=== PATIENT | male | born 1960 | race Caucasian/White ===

== ENCOUNTER 2018-03-03 18:30 | Emergency (ER) | payer MEDICAID ==
[~2018-03-03] VITALS: Ht 177.8 cm; Wt 85.7 kg
[2018-03-03 19:01] LABS: BASOPHILS % (AUTO) 0.4 % (0.0-2.0); EOSINOPHILS % (AUTO) 0.9 % (0.0-6.0); HEMATOCRIT 45 % (39-51); HEMOGLOBIN 15.3 g/dL (13.5-17.5); LYMPHOCYTES # (AUTO) 1.5 /CMM (0.8-4.8); LYMPHOCYTES % (AUTO) 19.2 % (20.0-44.0); MEAN CORPUSCULAR HEMOGLOBIN 32 PG (26.0-33.0); MEAN CORPUSCULAR HGB CONC 34 g/dl (31.0-36.0); MEAN CORPUSCULAR VOLUME 93 fL (80-96); MONOCYTES # (AUTO) 0.5 /CMM (0.1-1.30); MONOCYTES % (AUTO) 6.7 % (2.0-12.0); NEUTROPHILS # (AUTO) 5.6 /CMM (1.8-8.9); NEUTROPHILS % (AUTO) 72.8 % (43.0-81.0); PLATELET COUNT (AUTO) 256 /CMM (150-450); RDW COEFFICIENT OF VARIATION 11.4 (11.5-15.0); RED BLOOD CELL COUNT(AUTO) 4.84 MIL/uL (4.5-6.0); WHITE BLOOD COUNT (AUTO) 7.7 K/uL (4.3-11.0)
[2018-03-03 19:11] LABS: CALCIUM, SERUM 9.4 mg/dL (8.5-10.1); CARBON DIOXIDE 30 mmol/L (21-32); CHLORIDE 103 mmol/L (98-107); CREATININE 1.1 mg/dL (0.6-1.3); GLUCOSE 100 mg/dL (74-106); SODIUM SERUM 135 mmol/L (136-145); UREA NITROGEN, BLOOD 17 mg/dL (7-18)
[2018-03-03 19:13] LABS: ALCOHOL, BLOOD < 3 mg/dL (0-0)
--- NOTE | 2018-03-03 19:15 | NUR ---
RECEIVED REPORT FROM SHAMAR KEYES FROM [facility]: PATIENT AGITATED, AGGRESSIVE TOWARDS SELF MORE ALTERED THAN USUAL. PT ALERT AND ORIENTED. RR EVEN AND UNLABORED. NO SOB NOTED. NAD NOTED. NO NVD AT THIS TIME. PT GOWNED AND PLACED ON MONITOR. SEEN BY DR. LAURA CONWAY TO SHIFT REPORT.
--- NOTE | 2018-03-03 19:19 | NUR ---
UNABLE OBTAIN UA AT THIS TIME.DR SANCHEZ AWARE. PER MD TO ENDORSE TO ADMITTING RN.
[2018-03-03] MEDS ORDERED: HALOPERIDOL LACTATE INJ 5 MG/ML VIAL ONE (19:20)
[2018-03-03] MEDS ORDERED: HALOPERIDOL LACTATE INJ 5 MG/ML VIAL IM ONE (19:30)
--- NOTE | 2018-03-03 19:35 | NUR ---
PT REMOVED CARDIAC 3 LEAD AND BP CUFF. RISK AND BENEFITS EXPLAINED X3. PT STRONGLY REFUSED. DR. SANCHEZ MADE AWARE.
--- NOTE | 2018-03-03 19:38 | NUR ---
CALLED [facility] FOR PSYCH EVAL
[2018-03-03 19:50] LABS: APPEARANCE,URINE Clear (CLEAR); BILIRUBIN,URINE SMALL (NEGATIVE); BLOOD, URINE Negative Ery/uL (NEGATIVE); COLOR,URINE Yellow (YELLOW); KETONES,URINE 15 (NEGATIVE); LEUKOCYTE ESTERASE ,URINE Negative (NEGATIVE); NITRITE, URINE Negative (NEGATIVE); PROTEIN,URINE Negative (NEGATIVE); UGLUCOSE Negative (NEGATIVE); UROBILINOGEN,URINE 0.2 EU/dL (0.2)
[2018-03-03 19:54] LABS: BACTERIA,URINE Rare /HPF (None Seen); RBC,URINE 0-2 /HPF (0-2); SQUAMOUS EPITHELIAL CELL,UR Rare /HPF (None Seen); WBC,URINE 0-2 /HPF (0-3)
--- NOTE | 2018-03-03 20:20 | NUR ---
[facility] AT BEDSIDE FOR EVAL
--- NOTE | 2018-03-03 20:53 | NUR ---
REQUESTED BLS TRANSPORTATION WITH [facility]
--- NOTE | 2018-03-03 21:50 | NUR ---
PT PICKED UP BY [facility]
[2018-03-03 22:02] VITALS: BP 133/95
== END 2018-03-03 22:03 ==
LOC: ER 18:32
DX: R45.1 Restlessness and agitation (principal); F29 Unspecified psychosis not due to a substance or known physiological condition; N40.0 Benign prostatic hyperplasia without lower urinary tract symptoms; Z98.890 Other specified postprocedural states
CPT/HCPCS: 36415; 80048; 80305; 81001; 85025; 87081; 96372; 99285; A4606; G0480; J1630; Z7610; 81000-TC

== ENCOUNTER 2021-10-16 18:23 | Inpatient (IN) | payer MEDICAID ==
[~2021-10-16] VITALS: Ht 180.3 cm; Wt 72.6 kg
--- NOTE | 2021-10-16 18:24 | NUR ---
TO ER BED 8, ZAYDA [address] [place] [address] C/O SOB/LOW O2 SAT 86% ON RA. STARTED AROUND 1700H PER EMS REPORT, NON VERBAL, CONNECTED TO MONITOR, AWAITING MD ORDERS
--- NOTE | 2021-10-16 18:43 | NUR ---
PATIENT ATTACHED TO BIPAP. VS LN499ddr, SPO2 87%,BP 57/38mmHg. IV CANNULA G18 INSERTED ON RIGHT AC. 1L 0.9NS BOLUS STARTED.
--- NOTE | 2021-10-16 18:44 | NUR ---
COVID SWAB DONE AND SENT TO LAB
--- NOTE | 2021-10-16 18:49 | NUR ---
VITAL SIGNS : HR 127bpm, SPO2 98%, BP 70/33mmHg. Etomidate 20mg given IV PUSH, Rocoronium 70mg IV PUSH given. Suction secretions done
--- NOTE | 2021-10-16 18:53 | NUR ---
INTUBATION DONE BY DR NOYOLA, WITH RT PA RN EVER, MEÑO BRADEN MARIVI.
--- NOTE | 2021-10-16 18:53 | NUR ---
ATTACHED PATIENT TO MECHANICAL VENTILATOR WITH TV 450, AC MODE, FiO2 80%.
--- NOTE | 2021-10-16 18:53 | NUR ---
RSI PERFORMED BY DR NOYOLA, SEE NURSE NOTES
[2021-10-16] MEDS ORDERED: PROPOFOL 100 ML IV PRN (19:00)
[2021-10-16] MEDS ORDERED: PIPERACILLIN /TAZOBACTAM 3.375 G in IV D5W 50 ML IV ONE (19:00)
[2021-10-16] MEDS ORDERED: IV LR 1000 ML 1,000 ML IV ONE ×2 (19:00→21:00)
[2021-10-16] MEDS ORDERED: IV NS 0.9% 1,000 ML IV ONE (19:00)
--- NOTE | 2021-10-16 19:06 | NUR ---
MEDICAL DETAILIST AT PT'S BEDSIDE
--- NOTE | 2021-10-16 19:15 | NUR ---
1899 pt intubated by er physician with 7.5 ett positioned at 27cm via glidascope. positive color change, mist in the tube, bilateral chest rise, bilateral breath sounds. pt sedated at this time and non responsive. ett secured via anchorfast. pt placed on vent ac 14 450 80% +0. suctioned a large amount of thick wagoner secretions through ett. Addendum: 10/16/21 at 1938 by ROVERTO DEAN RT Amended: Links added.
--- NOTE | 2021-10-16 19:18 | NUR ---
NURSE DANUTAV WILL CALL [facility], WILL LET ER KNOW
[2021-10-16 19:59] LABS: ALANINE AMINOTRANSFERASE 15 U/L (12-78); ALBUMIN 1.8 g/dL (3.4-5.0); ALKALINE PHOSPHATASE 125 U/L (46-116); ASPARTATE AMINOTRANSFERASE 19 U/L (15-37); BILIRUBIN,DIRECT 0.2 mg/dL (0.0-0.2); BILIRUBIN,TOTAL 0.5 mg/dL (0.2-1.0); CALCIUM, SERUM 7.6 mg/dL (8.5-10.1); CARBON DIOXIDE 24 mmol/L (21-32); CREATININE 1.6 mg/dL (0.6-1.3); GLUCOSE 155 mg/dL (74-106); POTASSIUM 3.2 mmol/L (3.5-5.1); TOTAL PROTEIN, SERUM 6.1 g/dL (6.4-8.2); UREA NITROGEN, BLOOD 46 mg/dL (7-18)
[2021-10-16] MEDS ORDERED: ROCURONIUM BROMIDE 50 MG/5 ML IV ONE (20:00)
[2021-10-16] MEDS ORDERED: ETOMIDATE 2 MG/ML VIAL IV ONE (20:00)
[2021-10-16 20:31] LABS: SODIUM SERUM 171 mmol/L (136-145)
[2021-10-16 20:32] LABS: CHLORIDE 133 mmol/L (98-107)
--- NOTE | 2021-10-16 20:32 | NUR ---
PT TAKEN TO CT VIA ACLS PROTOCOL & RT
[2021-10-16 20:33] LABS: BASOPHILS % (AUTO) 0.2 % (0.0-2.0); EOSINOPHILS % (AUTO) 0.1 % (0.0-6.0); HEMATOCRIT 43 % (39-51); HEMOGLOBIN 13.4 g/dL (13.5-17.5); LYMPHOCYTES % (AUTO) 11.3 % (20.0-44.0); MEAN CORPUSCULAR HGB CONC 31 g/dl (31.0-36.0); MEAN CORPUSCULAR VOLUME 100 fL (80-96); MONOCYTES # (AUTO) 0.5 K/uL (0.1-1.30); MONOCYTES % (AUTO) 5.1 % (2.0-12.0); NEUTROPHILS # (AUTO) 7.5 K/uL (1.8-8.9); NEUTROPHILS % (AUTO) 83.3 % (43.0-81.0); PLATELET COUNT (AUTO) 245 K/uL (150-450); RED BLOOD CELL COUNT(AUTO) 4.32 MIL/uL (4.5-6.0)
--- NOTE | 2021-10-16 20:47 | NUR ---
PT RETURNED TO ER BED [address] VSS
[2021-10-16] MEDS ORDERED: IOHEXOL-350 100 ML VIAL IV ONE (20:57)
[2021-10-16] MEDS ORDERED: CT SWABBABLE VALVE TRANS SET 1 EA INFUS.SET MC ONE (20:57)
[2021-10-16] MEDS ORDERED: IV NS 0.9% 250 ML IV ONE (20:58)
--- NOTE | 2021-10-16 21:05 | NUR ---
PT TAKEN TO CT VIA JASEN WITH RN AND RT
--- NOTE | 2021-10-16 21:18 | NUR ---
[facility]
[2021-10-16] MEDS ORDERED: PROPOFOL 100 ML ONE (21:44)
--- NOTE | 2021-10-16 21:47 | NUR ---
COVID SWAB DONE AND SENT TO LAB
--- NOTE | 2021-10-16 21:52 | NUR ---
18FR INDWELLING URETHRAL CATHETER INSERTED AND SECURED PER MD ORDER. SPECIMEN COLLECTED AND SENT TO LAB.
--- NOTE | 2021-10-16 22:09 | NUR ---
RT AT BEDSIDE FOR ABG
--- NOTE | 2021-10-16 22:09 | NUR ---
MRSA SWAB COLLECTED AND SENT TO LAB. PATIENT'S BELONGINGS LIST DONE.
--- NOTE | 2021-10-16 22:14 | NUR ---
VERBAL CONSENT RECIEVED FROM SISTER AMBER DIMAS VIA PHONE FOR PICC LINE INSERTION. WITNESSED OBEY TILLMAN AND ELIDA TILLMAN.
[2021-10-16] MEDS ORDERED: PHENYLEPHRINE 50 MG in IV NS 0.9% 250 ML IV PRN (22:30)
[2021-10-16] MEDS ORDERED: ENOXAPARIN SODIUM 40 MG/0.4 ML DISP.SYRIN SQ SCH (22:30)
[2021-10-16] MEDS ORDERED: CEFEPIME 1 GM in IV D5W 50 ML IV SCH (22:30)
[2021-10-16] MEDS ORDERED: IV NS 0.9% 1,000 ML IV PRN (22:30)
[2021-10-16 22:37] LABS: BILIRUBIN,URINE SMALL (NEGATIVE); COLOR,URINE YELLOW (YELLOW); LEUKOCYTE ESTERASE ,URINE NEGATIVE (NEGATIVE); NITRITE, URINE NEGATIVE (NEGATIVE); PROTEIN,URINE 30 mg/dl (NEGATIVE); UGLUCOSE NEGATIVE (NEGATIVE)
[2021-10-16 22:42] LABS: BACTERIA,URINE None seen /HPF (None Seen); SQUAMOUS EPITHELIAL CELL,UR None Seen /HPF (None Seen); WBC,URINE 0-2 /HPF (0-3)
--- NOTE | 2021-10-16 22:48 | NUR ---
ROOM 254
[2021-10-16] MEDS ORDERED: DOXYCYCLINE 100 MG in IV D5W 100 ML IV ONE (23:00)
[2021-10-16] MEDS: NOREPINEPHRINE 8 MG in IV NS 0.9% 242 ML IV PRN ×2 (23:00→23:21)
--- NOTE | 2021-10-16 23:09 | NUR ---
REPORT GIVEN TO ANGELICA
--- NOTE | 2021-10-16 23:20 | NUR ---
SBP NOTED BELOW 90. LEVOPHED INTIATED AT 18G RAC AT 0.1MCG/KG/MIN PER PROTOCOL FOR BP CONTROL.
--- NOTE | 2021-10-16 23:20 | NUR ---
Note magan in ED - 10/17/21 at 0009 by SANG SBP NOTED BELOW 90. LEVOPHED INTIATED AT 18G RAC AT 5MCG/KG/MIN PER PROTOCOL FOR BP CONTROL.
--- NOTE | 2021-10-16 23:25 | NUR ---
LEVOPHED TITRATED AT 18G RAC TO 0.2MCG/KG/MIN PER PROTOCOL FOR BP CONTROL.
[2021-10-16] MEDS ORDERED: VANCOMYCIN 1 GM VIAL ONE (23:26)
[2021-10-16] MEDS ORDERED: VANCOMYCIN 500 MG VIAL ONE (23:26)
[2021-10-16] MEDS ORDERED: DOXYCYCLINE 100 MG VIAL ONE (23:26)
[2021-10-16] MEDS ORDERED: VANCOMYCIN 1.25 GM in IV D5W 250 ML IV ONE (23:30)
--- NOTE | 2021-10-16 23:35 | NUR ---
LEVOPHED TITRATED AT 18G RAC TO 0.3MCG/KG/MIN PER PROTOCOL FOR BP CONTROL.
--- NOTE | 2021-10-16 23:40 | NUR ---
PROPOFOL INFUSION TITRATED FROM 5MCG/KG/MIN TO 15MCG/KG/MIN AT 20G RH FOR PATIENT COMFORT.
[2021-10-16] MEDS ORDERED: CEFEPIME 1 GM VIAL ONE (23:41)
--- NOTE | 2021-10-16 23:45 | NUR ---
PROPOFOL INFUSION TITRATED FROM 15MCG/KG/MIN TO 20MCG/KG/MIN AT 20G RH FOR PATIENT COMFORT.
--- NOTE | 2021-10-16 23:50 | NUR ---
PROPOFOL INFUSION TITRATED FROM 20MCG/KG/MIN TO 25MCG/KG/MIN AT 20G RH FOR PATIENT COMFORT.
[2021-10-17] VITALS (94 sets, daily range): BP systolic 71–112; BP diastolic 41–75
--- NOTE | 2021-10-17 00:50 | NUR ---
LEVOPHED TITRATED AT THOMAS PICC LINE TO 0.4MCG/KG/MIN PER PROTOCOL FOR BP CONTROL.
--- NOTE | 2021-10-17 00:59 | NUR ---
LEVOPHED TITRATED AT THOMAS PICC LINE TO 0.5MCG/KG/MIN PER PROTOCOL FOR BP CONTROL. PROPOFOL TITRATED TO 30MCG/KG/MIN FOR PT COMOFORT AT 20G RH.
--- NOTE | 2021-10-17 01:21 | NUR ---
PT TRANSPORTED TO ROOM 254 ON PROCESSING ENGINEER PER ACLS WITH RN AND RT MANUALLY BAGGING PATIENT. LEVOPHED INFUSING AT 0.5MCG/KG/MIN AT THOMAS PICC LINE, VANCOMYACIN INFUSING AT 18G [id number] , PROPOFOL INFUSING AT 30MCG/KG/MIN. V/S WNL AT TIME OF TRANSFER.
[2021-10-17] MEDS ORDERED: HEPARIN SODIUM, PORCINE 5000 UNITS/1 ML VIAL IV ONE (01:30)
[2021-10-17] MEDS: PHENYLEPHRINE 50 MG in IV NS 0.9% 245 ML IV PRN ×4 (01:30→21:44)
[2021-10-17] MEDS: PROPOFOL 100 ML IV PRN ×4 (01:36→23:45)
[2021-10-17] MEDS ORDERED: IV PREMIX D5W + KCL 1,000 ML IV ONE (01:43)
[2021-10-17] MEDS ORDERED: HEPARIN INFUSION/D5W 500 ML IV ONE (01:43)
[2021-10-17] MEDS: Potassium Chloride 20 MEQ in IV D5W 1,000 ML IV PRN ×3 (01:47→22:44)
[2021-10-17] MEDS: HEPARIN INFUSION/D5W 500 ML IV PRN ×2 (01:51→20:48)
[2021-10-17] MEDS: IV NS 0.9% 250 ML IV PRN (02:06)
[2021-10-17 04:01] LABS: CALCIUM, SERUM 7.4 mg/dL (8.5-10.1); CREATININE 1.2 mg/dL (0.6-1.3); POTASSIUM 2.9 mmol/L (3.5-5.1)
[2021-10-17] MEDS: POTASSIUM CL. PREMIX PERIPHER. 50 ML IV SCH ×4 (04:59→07:41)
[2021-10-17] MEDS ORDERED: TAMS-12 PO (08:24)
[2021-10-17] MEDS ORDERED: MELA3TAB41 PO (08:24)
[2021-10-17] MEDS ORDERED: SIME80TA15 PO (08:24)
[2021-10-17] MEDS ORDERED: NA P133E RC (08:24)
[2021-10-17] MEDS ORDERED: ASPI-1169 PO (08:24)
[2021-10-17] MEDS ORDERED: ACET-868 PO ×2 (08:24)
[2021-10-17] MEDS ORDERED: DIVA-76 PO (08:24)
[2021-10-17] MEDS ORDERED: LORA-259 PO (08:24)
[2021-10-17] MEDS ORDERED: MAGN400O6 PO (08:24)
[2021-10-17] MEDS ORDERED: QUET25TA PO (08:24)
[2021-10-17] MEDS ORDERED: LACT1CAP69 PO (08:24)
[2021-10-17] MEDS ORDERED: METH5TAB6 PO (08:24)
[2021-10-17] MEDS ORDERED: BISA10SU11 RC (08:24)
[2021-10-17] MEDS ORDERED: MIRT-73 PO (08:24)
[2021-10-17] MEDS ORDERED: POLY17PO4 PO (08:24)
--- NOTE | 2021-10-17 08:30 | NUR ---
RN NOTES PT FOUND SEMI FOWLERS LYING ON R SIDE, DISPLAYING NO S/S OF DISTRESS, FLACC = 0, MIKE'S = 3 AND BILATERAL RISE AND FALL OF THE CHEST OBSERVED. SOFT WRISTS ON STANDBY, NOT ON PATIENT. R UA PICC IS PATIENT AND INTACT. R AC 18G AND R HAND 20G ARE PATIENT AND INTACT. DOMINGO CATH BELOW PATIENT DRAINING BY GRAVITY. VSS, RN WILL MONITOR AND TREAT THROUGHOUT SHIFT. SAFETY MEASURES IN PLACE, BED LOCKED AND IN LOWEST POSITION, SIDE RAILS UPX2, CALL LIGHT WITHIN REACH, BED ALARM ARMED.
[2021-10-17] MEDS: CEFEPIME 2 GM in IV D5W 100 ML IV SCH ×2 (08:53→22:00)
[2021-10-17 09:11] LABS: BASOPHILS % (AUTO) 0.3 % (0.0-2.0); EOSINOPHILS % (AUTO) 0.1 % (0.0-6.0); HEMATOCRIT 29 % (39-51); HEMOGLOBIN 9.1 g/dL (13.5-17.5); LYMPHOCYTES # (AUTO) 2.5 K/uL (0.8-4.8); LYMPHOCYTES % (AUTO) 23.6 % (20.0-44.0); MEAN CORPUSCULAR HGB CONC 31 g/dl (31.0-36.0); MEAN CORPUSCULAR VOLUME 102 fL (80-96); MONOCYTES # (AUTO) 0.4 K/uL (0.1-1.30); NEUTROPHILS # (AUTO) 7.8 K/uL (1.8-8.9); PLATELET COUNT (AUTO) 221 K/uL (150-450); RED BLOOD CELL COUNT(AUTO) 2.85 MIL/uL (4.5-6.0); WHITE BLOOD COUNT (AUTO) 10.8 K/uL (4.3-11.0)
--- NOTE | 2021-10-17 12:00 | NUR ---
MD VISIT DR MCDONALD VISITED PATIENT, PERFORMED ASSESSMENT. MD GAVE ORDERS: INSERT OG TUBE, START TUBE FEEDING WHEN CONFIRMED IN PLACE AND PLACE PT ON MODERATE INSULIN SLIDING SCALE AND ACCU CHECKS Q6H. RN ACKNOWLEDGED AND WILL EXECUTE ORDERS DIRECTED.
--- NOTE | 2021-10-17 14:00 | NUR ---
MD COMMUNICATION RN INFORMED DR CHO OF PT CRITICAL LABS, NA = 160 AND CL = 130. MD GAVE ORDERS: 300 ML FREE WATER FLUSH Q4H VIA OG TUBE. RN ACKNOWLEDGED AND WILL EXECUTE ORDERED.
[2021-10-17 14:12] LABS: ALBUMIN 1.6 g/dL (3.4-5.0); BILIRUBIN,TOTAL 0.3 mg/dL (0.2-1.0); CALCIUM, SERUM 7.4 mg/dL (8.5-10.1); CREATININE 0.8 mg/dL (0.6-1.3); MAGNESIUM 2.3 mg/dL (1.8-2.4); PHOSPHORUS 1.9 mg/dL (2.5-4.9); POTASSIUM 3.2 mmol/L (3.5-5.1); TOTAL PROTEIN, SERUM 5.5 g/dL (6.4-8.2)
[2021-10-17] MEDS ORDERED: ROCURONIUM BROMIDE 50 MG/5 ML IV ONE (14:44)
[2021-10-17] MEDS ORDERED: ETOMIDATE 2 MG/ML VIAL IV ONE (14:44)
[2021-10-17] MEDS: DIVALPROEX SODIUM 250 MG TABLET.DR PO SCH (17:28)
[2021-10-17] MEDS: METHIMAZOLE (5MG) 5 MG TABLET PO SCH (17:28)
[2021-10-17] MEDS: TAMSULOSIN 0.4 MG CAP.SR.24H PO SCH (17:29)
--- NOTE | 2021-10-17 19:25 | NUR ---
RN NOTES PT FOUND SEMI FOWLERS DISPLAYING NO S/S OF DISTRESS, FLACC = 0, RIKERS = 3, BILATERAL RISE AND FALL OF THE CHEST OBSERVED. OG TUBE IN PLACE, FREE WATER FLUSHES ONGOING. R UA PICC IS PATIENT AND INTACT, R HAND 20G IS PATIENT AND INTACT. DOMINGO CATH BELOW PATIENT DRAINING BY GRAVITY. SBAR AND REPORT GIVEN TO SOLUTIONS MANAGER RN, ALL QUESTIONS ANSWERED. SAFETY MEASURES IN PLACE, BED LOCKED AND IN LOWEST POSITION, SIDE RAILS UPX2, CALL LIGHT WITHIN REACH, BED ALARM ARMED. PT ENDORSED IN STABLE CONDITION FOR ILIANA.
--- NOTE | 2021-10-17 19:30 | NUR ---
RN NOTE PT RECEIVED IN BED. PT IS TRACH/VENT TOLERATING CURRENT SETTINGS WELL WITH OXYGEN SATURATION >98%. PT CURRENTLY SEDATED. OGT NOTED. F/C NOTED DRAINING YELLOW/WHIT COLORED URINE. IV ACCESS NOTED ON RIGHT HAND #20, RIGHT UPPER ARM PICC, AND RIGHT AC #18, LINES FLUSHED, AND INTACT. PROPOFOL RUNNING AT 40 MCG/KG/MIN, HEPARIN INFUSING AT 1200 UNITS/HR, AND NEOSYNEPHRINE AT 2.4 MCG/KG/MIN. ALL SAFETY MEASURES IMPLEMENTED. WILL CONTINUE TO MONITOR AND ASSESS FOR ANY CHANGES DURING SHIFT.
--- NOTE | 2021-10-17 20:45 | NUR ---
RN NOTE SPOKE WITH ROUGE SIFTER KEH REGARDING DR. MCDONALD ORDERS STATING PT SHOULD BE STARTED ON JEVITY 1.2 AT 20 CC/HR WITH MODERATE SLIDING SCALE. INFORMED ROUGE SIFTER KEH REGARDING PT BEING ALLERGIC TO LACTOSE AND IF SHE WANTS TO CHANGE TO ANYTHING ELSE, ROUGE SIFTER KEH ORDERED TO START JEVITY AND MONITOR FOR ANY ADVERSE ALLERGIC REACTIONS AND HOLD IF ANY CHANGES OCCUR. MODERATE SLIDING SCALE AND DIETARY CONSULT ORDERED WELL. ORDER NOTED AND CARRIED OUT.
[2021-10-17] MEDS ORDERED: DEXTROSE 50%-WATER 50 ML DISP.SYRIN IV PRN (21:00)
[2021-10-17] MEDS: QUETIAPINE FUMARATE 25 MG TABLET PO SCH (22:00)
[2021-10-17] MEDS: SIMETHICONE 80 MG TAB.CHEW PO SCH (22:00)
[2021-10-17] MEDS: JEVITY 1.2 CAL 1,000 ML BOTTLE GT PRN (22:34)
[2021-10-18] VITALS (94 sets, daily range): BP systolic 64–132; BP diastolic 48–95
--- NOTE | 2021-10-18 00:10 | NUR ---
RN NOTE LAB CALLED ABOUT PTT BEING 75. PER NON ACS PROTOCOL, DECREASE DRIP BY 2 UNITS/KG/H. HEPARIN DRIP NOW RUNNING AT 1100 CC/HR. WILL CONTINUE TO MONITOR FOR ANY ADVERSE REACTIONS.
[2021-10-18] MEDS: BLOOD SUGAR DIAGNOSTIC 1 EACH STRIP IN SCH ×5 (00:34→23:27)
[2021-10-18] MEDS: INSULIN REGULAR, HUMAN 100 UNIT/ML 3 ML VIAL SQ PRN ×5 (00:35→23:29)
[2021-10-18] MEDS ORDERED: NOREPINEPHRINE 8MG/250ML RTU 250 ML IV ONE (00:45)
[2021-10-18] MEDS: NOREPINEPHRINE 8 MG in IV NS 0.9% 242 ML IV PRN ×2 (00:56→15:37)
[2021-10-18] MEDS ORDERED: VANCOMYCIN 1 GM in IV D5W 250 ML IV SCH (01:00)
[2021-10-18] MEDS ORDERED: PHENYLEPHRINE 100 MG in IV NS 0.9% 240 ML IV PRN (01:00)
[2021-10-18] MEDS: HYDROCORTISONE SOD SUCCINATE 100 MG/2 ML VIAL IV SCH ×4 (01:16→21:41)
[2021-10-18] MEDS ORDERED: PHENYLEPHRINE 10 MG/ML VIAL ONE (02:48)
[2021-10-18 04:14] LABS: BASOPHILS % (AUTO) 0.2 % (0.0-2.0); HEMATOCRIT 31 % (39-51); HEMOGLOBIN 9.9 g/dL (13.5-17.5); LYMPHOCYTES # (AUTO) 1.9 K/uL (0.8-4.8); LYMPHOCYTES % (AUTO) 16.5 % (20.0-44.0); MEAN CORPUSCULAR HGB CONC 32 g/dl (31.0-36.0); MEAN CORPUSCULAR VOLUME 96 fL (80-96); MONOCYTES # (AUTO) 0.4 K/uL (0.1-1.30); MONOCYTES % (AUTO) 3.1 % (2.0-12.0); NEUTROPHILS # (AUTO) 9.4 K/uL (1.8-8.9); NEUTROPHILS % (AUTO) 79.2 % (43.0-81.0); PLATELET COUNT (AUTO) 187 K/uL (150-450); RED BLOOD CELL COUNT(AUTO) 3.24 MIL/uL (4.5-6.0); WHITE BLOOD COUNT (AUTO) 11.8 K/uL (4.3-11.0)
[2021-10-18 04:25] LABS: CALCIUM, SERUM 7.3 mg/dL (8.5-10.1); CREATININE 0.7 mg/dL (0.6-1.3); PHOSPHORUS 1.9 mg/dL (2.5-4.9); POTASSIUM 3.5 mmol/L (3.5-5.1)
--- NOTE | 2021-10-18 04:26 | NUR ---
RN NOTE PER IMANI AT [facility] TO ADMINISTER 0500 DOSE OF SOLU-CORTEF.
[2021-10-18] MEDS: PROPOFOL 100 ML IV PRN ×4 (06:08→22:39)
--- NOTE | 2021-10-18 07:00 | NUR ---
RN NOTE PT RECEIVED ON BED INTUBATED, TOLERATING CURRENT VENT SETTINGS WELL O2 SAT WNL, PT CURRENTLY SEDATED ON DIPRIVAN AT 45 MCG/KG/MIN RUNNING , TF AT 20C/HR RUNNING, F/C NOTED DRAINING YELLOW/WHIT COLORED URINE. IV ACCESS NOTED ON RIGHT HAND #20, RIGHT UPPER ARM PICC, AND RIGHT AC #18, LINES FLUSHED, AND INTACT. HEPARIN INFUSING AT 1300 UNITS/HR, AND NEOSYNEPHRINE AT 2.4 MCG/KG/MIN. LEVO AT .15 MCG/KG/MIN RUNNING FOR BP SUPPORT, IVF AT 100CC/HR RUNNING , SR UP x3, CALL LIGHT WITHIN EASY REACH, BED LOCKED AND IN LOWEST POSITION, ALL SAFETY MEASURES IMPLEMENTED. WILL CONTINUE TO MONITOR .
[2021-10-18] MEDS ORDERED: HEPARIN SODIUM, PORCINE 5000 UNITS/1 ML VIAL IV ONE (07:30)
--- NOTE | 2021-10-18 07:30 | NUR ---
RN NOTE NO CHANGES IN PT CONDITION DURING SHIFT. PT IS TRACH/VENT TOLERATING CURRENT SETTINGS WELL WITH OXYGEN SATURATION >98%. PT CURRENTLY SEDATED. IV ACCESS NOTED ON RIGHT HAND #20, RIGHT UPPER ARM PICC, AND RIGHT AC #18, LINES FLUSHED, AND INTACT. PROPOFOL RUNNING AT 45 MCG/KG/MIN, HEPARIN NOW INFUSING AT 1200 UNITS/HR AFTER LAST PTT RESULTS, LEVOPHED AT 0.15 MCG/KG/MIN AND NEOSYNEPHRINE AT 2.5 MCG/KG/MIN. ALL SAFETY MEASURES IMPLEMENTED. ENDORSED TO DAY SHIFT RN
[2021-10-18] MEDS: CEFEPIME 2 GM in IV D5W 100 ML IV SCH (08:22)
[2021-10-18] MEDS: Potassium Chloride 20 MEQ in IV D5W 1,000 ML IV PRN ×2 (08:23→17:54)
[2021-10-18] MEDS: DIVALPROEX SODIUM 250 MG TABLET.DR PO SCH ×3 (08:26→17:17)
[2021-10-18] MEDS: METHIMAZOLE (5MG) 5 MG TABLET PO SCH ×2 (08:26→17:16)
[2021-10-18] MEDS: ASPIRIN 81 MG TAB.CHEW PO SCH (08:26)
[2021-10-18] MEDS: ACIDOPHILUS/BULGARICUS 1 EACH TAB.CHEW PO SCH (08:26)
[2021-10-18] MEDS: SIMETHICONE 80 MG TAB.CHEW PO SCH ×2 (08:26→21:40)
[2021-10-18] MEDS ORDERED: Medication Not On Formulary EA (Lactobacillus Acidophilus (Probiotic) 1 EACH) PO SCH (09:00)
[2021-10-18] MEDS ORDERED: LACTOBACILLUS RHAMNOSUS GG 1 EACH CAP.SPRINK PO SCH (09:00)
--- NOTE | 2021-10-18 09:18 | NUR ---
WOUND CARE CONSULT: PT PRESENTS WITH SACRAL AND LOWER BACK INTACT DEEP TISSUE INJURIES AND RT HEEL RAISED BLISTER, PRESENT ON ADMISSION. PT IS VERY THIN. RECOMMENDATIONS MADE FOR SKIN PROTECTION INCLUDING FIRST STEP LOW AIRLOSS MATTRESS. DISCUSSED WITH NURSING STAFF. SURGICAL AND DPM CONSULTS CALLED TO DR GARCIA AND DR HAMPAPUR. ABARCA IN AGREEMEMENT WITH PLAN OF CARE. Addendum: 10/18/21 at 0919 by JOSEFINA MADRID WNDNU Amended: Links added.
[2021-10-18] MEDS ORDERED: Z GUARD REMEDY 4 OZ OINT TP PRN (09:30)
[2021-10-18] MEDS ORDERED: NEUTRA PHOS 1 POWD.PACKET GT ONE (10:00)
[2021-10-18] MEDS: Z GUARD REMEDY 4 OZ OINT TP SCH (10:28)
--- NOTE | 2021-10-18 12:00 | NUR ---
RN NOTES ET SUCTIONING DONE , CONTINUE TO MONITOR .
[2021-10-18] MEDS: VANCOMYCIN 1 GM in IV D5W 250 ML IV SCH (14:30)
[2021-10-18] MEDS: MEROPENEM 1 G in IV NS 0.9% 100 ML IV SCH ×2 (15:43→21:41)
[2021-10-18] MEDS: HEPARIN INFUSION/D5W 500 ML IV PRN (15:48)
[2021-10-18] MEDS: TAMSULOSIN 0.4 MG CAP.SR.24H PO SCH (17:17)
--- NOTE | 2021-10-18 18:18 | NUR ---
RN NOTES PT REMAINS INTUBATED AND SEDATED ,ON DIPRIVAN AT 50 MCG/KG/MIN, RAJAT OFF , LEVO AT .15 MCG/KG/MIN RUNNING FOR BP SUPPORT, IV SITE CLEAN , DRY AND INTACT, TF AT 20 CC/HR RUNNING , NO RESIDUAL NOTED . HEPARIN DRIP AT 1200 U/HR RUNNING , SR UP x3, CALL LIGHT WITHIN EASY REACH, BED LOCKED AND IN LOWEST POSITION, WILL ENDORSE TO CLERICAL AIDE NURSE FOR CONTINUITY OF CARE .
--- NOTE | 2021-10-18 19:15 | NUR ---
RN NOTE PT RECEIVED IN BED. PT IS TRACH/VENT TOLERATING CURRENT SETTINGS WELL WITH OXYGEN SATURATION >98%. PT CURRENTLY SEDATED. OGT NOTED RUNNING JEVITY 1.2 AT 20 CC/HR. PT TOLERATING WELL WITH NO RESIDUAL. F/C NOTED DRAINING YELLOW/WHIT COLORED URINE. IV ACCESS NOTED ON RIGHT UPPER ARM PICC, AND RIGHT AC #18, LINES FLUSHED, AND INTACT. PROPOFOL RUNNING AT 50 MCG/KG/MIN, HEPARIN INFUSING AT 1200 UNITS/HR, LEVOPHED AT .15 MCG/KG/MIN, AND IVF AT 100CC/HR RUNNING. ALL SAFETY MEASURES IMPLEMENTED. WILL CONTINUE TO MONITOR AND ASSESS FOR ANY CHANGES DURING SHIFT.
--- NOTE | 2021-10-18 19:25 | NUR ---
RN NOTE PER PHARMACY, OKAY TO GIVE 2100 SCHEDULED MERREM DOSE.
[2021-10-18] MEDS: QUETIAPINE FUMARATE 25 MG TABLET PO SCH (21:40)
[2021-10-19] VITALS (87 sets, daily range): BP systolic 80–133; BP diastolic 48–94
[2021-10-19] MEDS ORDERED: NOREPINEPHRINE 8MG/250ML RTU 250 ML IV ONE (02:05)
[2021-10-19] MEDS: NOREPINEPHRINE 8 MG in IV NS 0.9% 242 ML IV PRN ×2 (02:06→11:36)
[2021-10-19] MEDS: VANCOMYCIN 1 GM in IV D5W 250 ML IV SCH ×2 (02:56→15:13)
[2021-10-19] MEDS: Potassium Chloride 20 MEQ in IV D5W 1,000 ML IV PRN ×2 (04:37→17:19)
[2021-10-19] MEDS: HYDROCORTISONE SOD SUCCINATE 100 MG/2 ML VIAL IV SCH ×3 (04:37→21:45)
[2021-10-19] MEDS: MEROPENEM 1 G in IV NS 0.9% 100 ML IV SCH ×3 (04:50→21:45)
[2021-10-19] MEDS: PROPOFOL 100 ML IV PRN ×4 (04:56→21:56)
[2021-10-19 05:06] LABS: CALCIUM, SERUM 7.8 mg/dL (8.5-10.1); CREATININE 0.5 mg/dL (0.6-1.3); POTASSIUM 4.3 mmol/L (3.5-5.1)
[2021-10-19] MEDS: BLOOD SUGAR DIAGNOSTIC 1 EACH STRIP IN SCH ×3 (05:07→18:08)
[2021-10-19] MEDS: INSULIN REGULAR, HUMAN 100 UNIT/ML 3 ML VIAL SQ PRN ×3 (05:09→19:27)
[2021-10-19] MEDS ORDERED: HEPARIN SODIUM, PORCINE 5000 UNITS/1 ML VIAL IV ONE ×4 (05:30→13:00)
--- NOTE | 2021-10-19 05:55 | NUR ---
RN NOTE PER NON ACS PROTOCOL, PTT OF 40.2. BOLUS GIVEN OF 2200 UNITS WELL INCREASE HEPARIN DRIP BY 2 UNITS/KG/HR. HEPARIN DRIP NOW RUNNING AT 1300 UNITS/HR.
--- NOTE | 2021-10-19 06:31 | NUR ---
RN NOTE NO CHANGES IN PT CONDITION DURING SHIFT. PT IS TRACH/VENT TOLERATING CURRENT SETTINGS WELL WITH OXYGEN SATURATION >98%. PT CURRENTLY SEDATED. OGT NOTED RUNNING JEVITY 1.2 AT 20 CC/HR. PT TOLERATING WELL WITH NO RESIDUAL. IV ACCESS NOTED ON RIGHT UPPER ARM PICC, AND RIGHT AC #18, LINES FLUSHED, AND INTACT. PROPOFOL RUNNING AT 50 MCG/KG/MIN, HEPARIN NOW INFUSING AT 1300 UNITS/HR, LEVOPHED AT .2 MCG/KG/MIN, AND IVF AT 100CC/HR RUNNING. ALL SAFETY MEASURES IMPLEMENTED. PT KEPT CLEAN AND COMFORTABLE. ALL DUE MEDS GIVEN ORDERED. WILL ENDORSE TO MORNING SHIFT RN FOR ILIANA.
--- NOTE | 2021-10-19 07:30 | NUR ---
RN NOTES PT FOUND SEMI FOWLERS DISPLAYING NO S/S OF DISTRESS, FLACC = 0, RIKERS = 3 AND BILATERAL RISE AND FALL OF THE CHEST OBSERVED. HOB = 30 DEGREES. R UA PICC IS PATIENT AND INTACT. DOMINGO CATH BELOW PATIENT DRAINING BY GRAVITY. VSS, RN WILL MONITOR AND TREAT THROUGHOUT SHIFT. SAFETY MEASURES IN PLACE, BED LOCKED AND IN LOWEST POSITION, SIDE RAILS UPX2, CALL LIGHT WITHIN REACH, BED ALARM ARMED.
[2021-10-19 07:59] LABS: BASOPHILS % (AUTO) 0.2 % (0.0-2.0); HEMATOCRIT 29 % (39-51); HEMOGLOBIN 9.5 g/dL (13.5-17.5); LYMPHOCYTES # (AUTO) 1.4 K/uL (0.8-4.8); LYMPHOCYTES % (AUTO) 10.1 % (20.0-44.0); MEAN CORPUSCULAR HGB CONC 33 g/dl (31.0-36.0); MEAN CORPUSCULAR VOLUME 94 fL (80-96); MONOCYTES # (AUTO) 0.4 K/uL (0.1-1.30); NEUTROPHILS # (AUTO) 12.3 K/uL (1.8-8.9); NEUTROPHILS % (AUTO) 86.7 % (43.0-81.0); PLATELET COUNT (AUTO) 240 K/uL (150-450); RED BLOOD CELL COUNT(AUTO) 3.09 MIL/uL (4.5-6.0); WHITE BLOOD COUNT (AUTO) 14.2 K/uL (4.3-11.0)
[2021-10-19] MEDS: ACIDOPHILUS/BULGARICUS 1 EACH TAB.CHEW PO SCH (08:19)
[2021-10-19] MEDS: METHIMAZOLE (5MG) 5 MG TABLET PO SCH ×2 (08:19→17:57)
[2021-10-19] MEDS: SIMETHICONE 80 MG TAB.CHEW PO SCH ×2 (08:19→21:45)
[2021-10-19] MEDS: DIVALPROEX SODIUM 250 MG TABLET.DR PO SCH ×3 (08:19→17:57)
[2021-10-19] MEDS: ASPIRIN 81 MG TAB.CHEW PO SCH (08:19)
--- NOTE | 2021-10-19 08:30 | NUR ---
MD VISIT DR. ALTMAN PERFORMED ASSESSMENT, GAVE RN ORDERS: TITRATE DOWN PROPOFOL AND TRIAL HOLD RX. MONITOR PATIENT REACTION. RN ACKNOWLEDGED AND WILL EXECUTE ORDERED.
[2021-10-19 08:38] LABS: BILIRUBIN,DIRECT 0.1 mg/dL (0.0-0.2); BILIRUBIN,TOTAL 0.2 mg/dL (0.2-1.0); TOTAL PROTEIN, SERUM 5.1 g/dL (6.4-8.2)
[2021-10-19] MEDS: Z GUARD REMEDY 4 OZ OINT TP SCH (08:42)
[2021-10-19 08:43] LABS: ALBUMIN 1.4 g/dL (3.4-5.0)
--- NOTE | 2021-10-19 08:45 | NUR ---
COMMUNICATION & CRITICAL HUMAN SERVICE COORDINATOR RECEIVED CRITICAL LAB, ALBUMIN IS 1.4. RN INFORMED DR. BOWLES. MD ASKED QUESTIONS OF CURRENT PRESSORS AND BP. RN RESPONDED WITH LEVOPHED @ 0.2 MCG/KG/MIN AND BP OF 95/66 (75). MD ACKNOWLEDGED AND GAVE NO ORDERS.
--- NOTE | 2021-10-19 10:00 | NUR ---
IS AWARE OF SEPSIS. PT ON FLUIDS. BLOOD CULTURE LABS DRAWN. Addendum: 10/19/21 at 1104 by PK BERGMAN RN Amended: Links added.
[2021-10-19] MEDS: HEPARIN INFUSION/D5W 500 ML IV PRN (13:05)
[2021-10-19] MEDS: JEVITY 1.2 CAL 1,000 ML BOTTLE GT PRN (13:21)
[2021-10-19] MEDS ORDERED: AMIODARONE 150 MG in IV D5W 100 ML IV ONE (16:30)
[2021-10-19] MEDS ORDERED: AMIODARONE 450 MG in IV D5W 241 ML IV PRN (16:30)
[2021-10-19] MEDS: TAMSULOSIN 0.4 MG CAP.SR.24H PO SCH (17:57)
--- NOTE | 2021-10-19 19:30 | NUR ---
RN NOTES PT FOUND SEMI FOWLERS DISPLAYING NO S/S OF DISTRESS, FLACC = 0, RIKERS = 3, SOMETIMES 4 AND BILATERAL RISE AND FALL OF THE CHEST OBSERVED. HOB = 30 DEGREES. R UA PICC IS PATIENT AND INTACT. DOMINGO CATH BELOW PATIENT DRAINING BY GRAVITY. SBAR AND REPORT GIVEN TO MILLINERY TEACHER RN, ALL QUESTIONS ANSWERED. SAFETY MEASURES IN PLACE, BED LOCKED AND IN LOWEST POSITION, SIDE RAILS UPX2, CALL LIGHT WITHIN REACH, BED ALARM ARMED. PT ENDORSED IN STABLE CONDITION FOR ILIANA.
--- NOTE | 2021-10-19 20:00 | NUR ---
COMPLIANCE ADMINISTRATOR. RECEIVED THE PT REST IN BED. ORALLY INTUBATED. SEDATEDW ITH PROPOFOL. ETT 7.5, LIP 27CMS,AC 14,TV 400, FIO2 40%, TV 400. SAT 98%. NO ACUTE DISTRESS NOTED. ATTRACTIONS ASSOCIATE SHOWING NSR. IV RT UPPER ARM PICC LINE HEPARIN 1450 UNITS/MIN, LEVOPHED 0.1MCG/KG/MIN, PROPOFOL 50MCG/KG/MIN, IVF D5W IN POTASSIUM 20MEQ @ 100ML/H. OGT INTACT. JEVITY 20 ML/H, FC PATENT. URINE DRAINING. HOB ELEVATED. WILL CONTINUE TO MONITOR VITALS.
--- NOTE | 2021-10-19 21:06 | NUR ---
APPEALS EXAMINER.LAB CALLED FOR PTT RESULT 82.2. PT IS ON HEPARIN DRIP. DECREASE THE HEPARIN DRIP PER PROTOCOL
[2021-10-19] MEDS: QUETIAPINE FUMARATE 25 MG TABLET PO SCH (21:46)
[2021-10-20] VITALS (77 sets, daily range): BP systolic 86–122; BP diastolic 44–86
[2021-10-20] MEDS: BLOOD SUGAR DIAGNOSTIC 1 EACH STRIP IN SCH ×4 (00:05→18:40)
[2021-10-20] MEDS: NOREPINEPHRINE 8 MG in IV NS 0.9% 242 ML IV PRN ×2 (02:30→22:40)
[2021-10-20] MEDS: PROPOFOL 100 ML IV PRN ×5 (02:31→23:25)
[2021-10-20] MEDS: Potassium Chloride 20 MEQ in IV D5W 1,000 ML IV PRN ×3 (03:06→22:40)
[2021-10-20] MEDS: VANCOMYCIN 1 GM in IV D5W 250 ML IV SCH ×2 (03:06→16:27)
--- NOTE | 2021-10-20 03:22 | NUR ---
SENIOR SUPPORT ANALYST. AM CARE GIVEN. REMAINING SAME VENTS SETTINGS TOLERATED WFC PATENT. URINE DRAINING. HOB ELEAVTED, TURN AND REPOSITION Q2H. WILL CONTINUE TO MONITOR VITALS.ELL. SAT 99%. NO ACUTE DISTRESS NOTED. BOX TOE MAKER SHOWING NSR. IV RT UPPER ARM PICC LINE. LEVOPHED 0.2MCG/KG/MIN, PROPOFOL 50 MCG/KG/MIN, D5WIN 20 K @ 100 ML/H. HOB ELEVATED. OGT FEEDING TOLERATED WELL. FC PATENT. URINE DRAINING.
[2021-10-20 04:24] LABS: BASOPHILS % (AUTO) 0.1 % (0.0-2.0); HEMATOCRIT 26 % (39-51); HEMOGLOBIN 8.5 g/dL (13.5-17.5); LYMPHOCYTES # (AUTO) 1.5 K/uL (0.8-4.8); LYMPHOCYTES % (AUTO) 10.8 % (20.0-44.0); MEAN CORPUSCULAR HGB CONC 33 g/dl (31.0-36.0); MEAN CORPUSCULAR VOLUME 94 fL (80-96); MONOCYTES # (AUTO) 0.7 K/uL (0.1-1.30); MONOCYTES % (AUTO) 4.7 % (2.0-12.0); NEUTROPHILS % (AUTO) 84.4 % (43.0-81.0); PLATELET COUNT (AUTO) 241 K/uL (150-450); RED BLOOD CELL COUNT(AUTO) 2.75 MIL/uL (4.5-6.0); WHITE BLOOD COUNT (AUTO) 14.3 K/uL (4.3-11.0)
[2021-10-20 04:36] LABS: BILIRUBIN,TOTAL 0.2 mg/dL (0.2-1.0); CALCIUM, SERUM 7.5 mg/dL (8.5-10.1); CREATININE 0.4 mg/dL (0.6-1.3); TOTAL PROTEIN, SERUM 4.7 g/dL (6.4-8.2)
[2021-10-20] MEDS: HEPARIN INFUSION/D5W 500 ML IV PRN ×2 (04:59→22:41)
[2021-10-20 05:02] LABS: ALBUMIN 1.2 g/dL (3.4-5.0)
[2021-10-20] MEDS: MEROPENEM 1 G in IV NS 0.9% 100 ML IV SCH ×3 (05:04→21:35)
[2021-10-20] MEDS: HYDROCORTISONE SOD SUCCINATE 100 MG/2 ML VIAL IV SCH ×3 (05:04→21:48)
[2021-10-20] MEDS: INSULIN REGULAR, HUMAN 100 UNIT/ML 3 ML VIAL SQ PRN ×3 (05:06→18:44)
[2021-10-20 05:50] LABS: BAND % (MANUAL) 3 % (0.0-5.0); LYMPHOCYTES % (MANUAL) 8 % (16-48); MONOCYTES % (MANUAL) 2 % (0-11.0); NEUTROPHILS % (MANUAL) 87 (42-76)
--- NOTE | 2021-10-20 07:30 | NUR ---
RN OPENING NOTE PT RECEIVED IN BED ON MECHANICAL VENT WITH ALL PRESCRIBED VENT SETTINGS TOLERATING WELL WITH NO SIGNS OF LABORED BREATHING OR DISTRESS SAT 100%. PT TELE MONITOR NSR 80- 90S AND INFUSING WITH LEVO @0.2MCG/HR. PT IS CURRENTLY SEDATED WITH DIPRIVAN @50MCG/HR. PT ALSO HAS HEPARIN INFUSION @1450UNITS/HR. FC IS IN PLACE DRAINING URINE TO GRAVITY OG IS IN PLACE WITH POSITIVE PLACEMENT INFUSING WITH JEVITY 1.2 @20ML/HR. IV ACCESS R UA PICC; R AC INFUSING WITH KCL 20MEQ@100ML/HR. BED IS LOCKED IN LOWEST POSITION X2 BED RAILS UP AND ALL HOSPITAL PROTOCOLS ARE IN PLACE. WILL CONTINUE TO MONITOR THIS SHIFT.
[2021-10-20] MEDS: ALBUMIN 25% 25 GM in PREMIX 1 EA IV SCH ×2 (08:58→21:35)
[2021-10-20] MEDS: SIMETHICONE 80 MG TAB.CHEW PO SCH ×2 (08:59→21:48)
[2021-10-20] MEDS: ACIDOPHILUS/BULGARICUS 1 EACH TAB.CHEW PO SCH (08:59)
[2021-10-20] MEDS: ASPIRIN 81 MG TAB.CHEW PO SCH (08:59)
[2021-10-20] MEDS: DIVALPROEX SODIUM 250 MG TABLET.DR PO SCH ×3 (08:59→17:49)
[2021-10-20] MEDS: METHIMAZOLE (5MG) 5 MG TABLET PO SCH ×2 (08:59→17:49)
[2021-10-20] MEDS: Z GUARD REMEDY 4 OZ OINT TP SCH (09:00)
--- NOTE | 2021-10-20 10:00 | NUR ---
RN NOTE: SEDATION VACATION PT WEENED OFF DIPRIVAN AND HELD. PT IS AGITATED AT THIS TIME. PER DR. ALTMAN RESTART SEDATION. WILL CONTINUE TO MONITOR.
[2021-10-20] MEDS ORDERED: JEVITY 1.2 CAL 1,000 ML BOTTLE GT PRN (15:30)
--- NOTE | 2021-10-20 16:16 | NUR ---
RT Sputum Sample obtained and placed in lab fridge, RN is aware.
[2021-10-20] MEDS: TAMSULOSIN 0.4 MG CAP.SR.24H PO SCH (17:49)
--- NOTE | 2021-10-20 19:40 | NUR ---
RN CLOSING NOTE PT IN BED ON MECHANICAL VENT WITH ALL PRESCRIBED VENT SETTINGS TOLERATING WELL WITH NO SIGNS OF LABORED BREATHING OR DISTRESS SAT 100%. PT TELE MONITOR NSR 80- 90S AND INFUSING WITH LEVO @0.06MCG/HR. PT IS CURRENTLY SEDATED WITH DIPRIVAN @50MCG/HR. PT ALSO HAS HEPARIN INFUSION @1450UNITS/HR. FC IS IN PLACE DRAINING URINE TO GRAVITY OG IS IN PLACE WITH POSITIVE PLACEMENT INFUSING WITH JEVITY 1.2 @45ML/HR. IV ACCESS R UA PICC; R AC INFUSING WITH KCL 20MEQ@100ML/HR. BED IS LOCKED IN LOWEST POSITION X2 BED RAILS UP AND ALL HOSPITAL PROTOCOLS ARE IN PLACE. WILL ENDORSE TO INVENTORY CONTROL MANAGER NURSE FOR ILIANA.
[2021-10-20] MEDS: QUETIAPINE FUMARATE 25 MG TABLET PO SCH (21:48)
[2021-10-20] MEDS: IV NS 0.9% 250 ML IV PRN (23:25)
[2021-10-21] VITALS (91 sets, daily range): BP systolic 83–141; BP diastolic 46–89
[2021-10-21] MEDS: BLOOD SUGAR DIAGNOSTIC 1 EACH STRIP IN SCH ×5 (00:11→23:41)
[2021-10-21] MEDS: VANCOMYCIN 1 GM in IV D5W 250 ML IV SCH ×2 (03:32→16:08)
[2021-10-21 04:00] LABS: HEMATOCRIT 23 % (39-51); HEMOGLOBIN 7.4 g/dL (13.5-17.5); LYMPHOCYTES # (AUTO) 1.2 K/uL (0.8-4.8); LYMPHOCYTES % (AUTO) 10.4 % (20.0-44.0); MEAN CORPUSCULAR HGB CONC 32 g/dl (31.0-36.0); MEAN CORPUSCULAR VOLUME 94 fL (80-96); MONOCYTES # (AUTO) 0.5 K/uL (0.1-1.30); MONOCYTES % (AUTO) 4.3 % (2.0-12.0); NEUTROPHILS # (AUTO) 10.2 K/uL (1.8-8.9); NEUTROPHILS % (AUTO) 85.3 % (43.0-81.0); PLATELET COUNT (AUTO) 225 K/uL (150-450); RED BLOOD CELL COUNT(AUTO) 2.42 MIL/uL (4.5-6.0)
[2021-10-21 04:17] LABS: BILIRUBIN,TOTAL 0.4 mg/dL (0.2-1.0); CALCIUM, SERUM 7.7 mg/dL (8.5-10.1); CREATININE 0.4 mg/dL (0.6-1.3); POTASSIUM 3.6 mmol/L (3.5-5.1)
[2021-10-21] MEDS: MEROPENEM 1 G in IV NS 0.9% 100 ML IV SCH ×3 (04:45→20:30)
[2021-10-21] MEDS: PROPOFOL 100 ML IV PRN ×5 (04:45→20:30)
[2021-10-21] MEDS: HYDROCORTISONE SOD SUCCINATE 100 MG/2 ML VIAL IV SCH ×3 (04:46→21:50)
[2021-10-21] MEDS: INSULIN REGULAR, HUMAN 100 UNIT/ML 3 ML VIAL SQ PRN ×2 (05:31→17:19)
--- NOTE | 2021-10-21 06:24 | NUR ---
MOLASSES PREPARER PTT 49.8; NO CHANGE TO HEPARIN DRIP PER PROTOCOL.
--- NOTE | 2021-10-21 07:05 | NUR ---
RN NOTE PT RECEIVED ON BED INTUBATED, TOLERATING CURRENT VENT SETTINGS WELL O2 SAT WNL, PT CURRENTLY SEDATED ON DIPRIVAN AT 50 MCG/KG/MIN RUNNING , TF AT 45C/HR RUNNING, F/C NOTED DRAINING YELLOW COLOR URINE, IV ACCESS NOTED ON RIGHT HAND #20, RIGHT UPPER ARM PICC, AND RIGHT AC #18, LINES FLUSHED, AND INTACT. HEPARIN INFUSING AT 1450 UNITS/HR, AND LEVO AT 0.06 MCG/KG/MIN RUNNING FOR BP SUPPORT, IVF AT 100CC/HR RUNNING , SR UP x3, CALL LIGHT WITHIN EASY REACH, BED LOCKED AND IN LOWEST POSITION, ALL SAFETY MEASURES IMPLEMENTED. WILL CONTINUE TO MONITOR .
[2021-10-21] MEDS: METHIMAZOLE (5MG) 5 MG TABLET PO SCH ×2 (08:40→16:30)
[2021-10-21] MEDS: SIMETHICONE 80 MG TAB.CHEW PO SCH ×2 (08:40→21:50)
[2021-10-21] MEDS: DIVALPROEX SODIUM 250 MG TABLET.DR PO SCH ×3 (08:40→16:28)
[2021-10-21] MEDS: ASPIRIN 81 MG TAB.CHEW PO SCH (08:40)
[2021-10-21] MEDS: ACIDOPHILUS/BULGARICUS 1 EACH TAB.CHEW PO SCH (08:40)
[2021-10-21] MEDS: Z GUARD REMEDY 4 OZ OINT TP SCH (08:41)
[2021-10-21] MEDS: Potassium Chloride 20 MEQ in IV D5W 1,000 ML IV PRN ×2 (08:54→18:55)
[2021-10-21 09:31] LABS: ABG BASE EXCESS 0.9 mmol/L; ABG PCO2 34.7 mmHg (35.0-45.0); ABG PH 7.467 (7.350-7.450); ABG PO2 118.8 mmHg (75.0-100.0); COHb 0.1 % (0.5-1.5); MetHb 0.7 % (0.0-1.5); O2Hb 96.9 % (94.0-97.0); SITE, ABG Left Radial; VENT MODE, BG AC 14 400 +0 40%
[2021-10-21 10:23] LABS: LYMPHOCYTES % (MANUAL) 11 % (16-48); METAMYELOCYTES % 1 % (0-0); MONOCYTES % (MANUAL) 2 % (0-11.0); MYELOCYTES % 1 % (0-0); NEUTROPHILS % (MANUAL) 85 (42-76)
--- NOTE | 2021-10-21 12:00 | NUR ---
RN NOTES ET TUBE AND ORAL CARE DONE, CONTINUE TO MONITOR .
[2021-10-21] MEDS: JEVITY 1.2 CAL 1,000 ML BOTTLE GT PRN (13:42)
[2021-10-21] MEDS: HEPARIN INFUSION/D5W 500 ML IV PRN (16:11)
[2021-10-21] MEDS: TAMSULOSIN 0.4 MG CAP.SR.24H PO SCH (17:13)
--- NOTE | 2021-10-21 18:39 | NUR ---
RN NOTES PT REMAINS INTUBATED AND SEDATED , ON DIPRIVAN AT 70MCG/KG/MIN , TOLERAING VENT SETTING WELL, ET TUBE SUCTIONING DONE NEEDED , LEVO @0.1 MCG/HR. HEPARIN INFUSION @1450UNITS/HR. FC IS IN PLACE DRAINING URINE TO GRAVITY OG IS IN PLACE WITH POSITIVE PLACEMENT INFUSING WITH JEVITY 1.2 @45ML/HR. IV ACCESS R UA PICC; BED IS LOCKED AND IN LOWEST POSITION, WILL ENDORSE TO [place]TE PERFORMER NURSE FOR CONTINUITY OF CARE .
[2021-10-21] MEDS: NOREPINEPHRINE 8 MG in IV NS 0.9% 242 ML IV PRN (20:30)
[2021-10-21 20:37] LABS: HEMOGLOBIN 7.1 g/dL (13.5-17.5)
[2021-10-21] MEDS: QUETIAPINE FUMARATE 25 MG TABLET PO SCH (21:50)
[2021-10-22] VITALS (98 sets, daily range): BP systolic 81–121; BP diastolic 46–86
[2021-10-22] MEDS: Potassium Chloride 20 MEQ in IV D5W 1,000 ML IV PRN ×2 (00:15→15:58)
[2021-10-22] MEDS: PROPOFOL 100 ML IV PRN ×8 (00:15→23:40)
[2021-10-22] MEDS: VANCOMYCIN 1 GM in IV D5W 250 ML IV SCH ×2 (03:15→16:42)
[2021-10-22] MEDS: MEROPENEM 1 G in IV NS 0.9% 100 ML IV SCH ×3 (04:20→20:15)
[2021-10-22] MEDS: HYDROCORTISONE SOD SUCCINATE 100 MG/2 ML VIAL IV SCH ×3 (04:50→22:02)
[2021-10-22] MEDS: BLOOD SUGAR DIAGNOSTIC 1 EACH STRIP IN SCH ×4 (05:15→23:39)
[2021-10-22 06:06] LABS: BASOPHILS % (AUTO) 0.1 % (0.0-2.0); EOSINOPHILS % (AUTO) 0.1 % (0.0-6.0); HEMATOCRIT 22 % (39-51); LYMPHOCYTES # (AUTO) 1.9 K/uL (0.8-4.8); LYMPHOCYTES % (AUTO) 11.1 % (20.0-44.0); MEAN CORPUSCULAR HGB CONC 32 g/dl (31.0-36.0); MEAN CORPUSCULAR VOLUME 95 fL (80-96); MONOCYTES # (AUTO) 0.9 K/uL (0.1-1.30); MONOCYTES % (AUTO) 5.4 % (2.0-12.0); NEUTROPHILS # (AUTO) 14.6 K/uL (1.8-8.9); NEUTROPHILS % (AUTO) 83.3 % (43.0-81.0); PLATELET COUNT (AUTO) 280 K/uL (150-450); RED BLOOD CELL COUNT(AUTO) 2.31 MIL/uL (4.5-6.0); WHITE BLOOD COUNT (AUTO) 17.5 K/uL (4.3-11.0)
[2021-10-22 06:13] LABS: CALCIUM, SERUM 7.6 mg/dL (8.5-10.1); CREATININE 0.3 mg/dL (0.6-1.3); POTASSIUM 3.9 mmol/L (3.5-5.1)
[2021-10-22 06:23] LABS: ALBUMIN 1.6 g/dL (3.4-5.0); BILIRUBIN,TOTAL 0.3 mg/dL (0.2-1.0); TOTAL PROTEIN, SERUM 4.7 g/dL (6.4-8.2)
--- NOTE | 2021-10-22 07:14 | NUR ---
SENIOR WEALTH ADVISOR PTT 63 NO CHANGE TO HEPARIN DRIP
--- NOTE | 2021-10-22 07:20 | NUR ---
RN NOTES PT FOUND SEMI FOWLERS DISPLAYING NO S/S OF DISTRESS, FLACC = 0, RIKERS = 3 AND BILATERAL RISE AND FALL OF THE CHEST OBSERVED. HOB = 30 DEGREES. R UA PICC IS PATIENT AND INTACT. DOMINGO CATH BELOW PATIENT DRAINING BY GRAVITY. 0 RESIDUAL MEASURED VIA OG TUBE. VSS, RN WILL MONITOR AND TREAT THROUGHOUT SHIFT. SAFETY MEASURES IN PLACE, BED LOCKED AND IN LOWEST POSITION, SIDE RAILS UPX2, CALL LIGHT WITHIN REACH, BED ALARM ARMED.
[2021-10-22] MEDS: ASPIRIN 81 MG TAB.CHEW PO SCH (08:40)
[2021-10-22] MEDS: METHIMAZOLE (5MG) 5 MG TABLET PO SCH ×2 (08:40→17:08)
[2021-10-22] MEDS: ACIDOPHILUS/BULGARICUS 1 EACH TAB.CHEW PO SCH (08:40)
[2021-10-22] MEDS: SIMETHICONE 80 MG TAB.CHEW PO SCH ×2 (08:40→22:02)
[2021-10-22] MEDS: DIVALPROEX SODIUM 250 MG TABLET.DR PO SCH ×3 (08:40→17:08)
[2021-10-22] MEDS: Z GUARD REMEDY 4 OZ OINT TP SCH (08:41)
--- NOTE | 2021-10-22 10:20 | NUR ---
MD VISIT RN SPOKE TO DR. ALTMAN, INCREASE PROPOFOL TO 100 MCG/KG/MIN. IF AFTER 2 HOURS PT WOB DOES NOT DECREASE, START FENTANYL IV. RN ACKNOWLEDGED AND WILL EXECUTE ORDERS.
[2021-10-22] MEDS: HEPARIN INFUSION/D5W 500 ML IV PRN (10:25)
--- NOTE | 2021-10-22 10:30 | NUR ---
MD COMMUNICATION RN SPOKE TO DR. WILBUR MD GAVE ORDERS. STOP HEPARIN AND GIVE 1 UNIT OF PRBC. RN ACKNOWLEDGED AND WILL EXECUTE ORDERS DIRECTED.
[2021-10-22] MEDS: JEVITY 1.2 CAL 1,000 ML BOTTLE GT PRN (15:13)
--- NOTE | 2021-10-22 16:00 | NUR ---
MD COMMUNICATION DR ALTMAN ORDERED THAT PT BE PLACED ON FENTANYL IF RESPIRATORY SUPPRESSION COULD NOT BE ACHIEVED. PT HAS VARYING TIDAL VOLUME (FROM 100 TO 700), CONTINUES TO HAVE A VARYING RR (15 TO 20). RN WILL ENTER ORDERS DIRECTED.
[2021-10-22] MEDS: NOREPINEPHRINE 8 MG in IV NS 0.9% 242 ML IV PRN (16:47)
[2021-10-22] MEDS: FENTANYL CITRAT IV 2,500 MCG in IV NS 0.9% 200 ML IV PRN (16:51)
[2021-10-22] MEDS: TAMSULOSIN 0.4 MG CAP.SR.24H PO SCH (17:08)
[2021-10-22] MEDS: INSULIN REGULAR, HUMAN 100 UNIT/ML 3 ML VIAL SQ PRN ×2 (18:32→23:55)
--- NOTE | 2021-10-22 19:10 | NUR ---
RN NOTES PT FOUND SEMI FOWLERS DISPLAYING NO S/S OF DISTRESS, FLACC = 0, RIKERS = 3 AND BILATERAL RISE AND FALL OF THE CHEST OBSERVED. HOB = 30 DEGREES. > 5 ML RESIDUAL MEASURED VIA OG TUBE. R UA PICC IS PATIENT AND INTACT. DOMINGO CATH BELOW PATIENT DRAINING BY GRAVITY. VSS, RN WILL MONITOR AND TREAT THROUGHOUT SHIFT. SAFETY MEASURES IN PLACE, BED LOCKED AND IN LOWEST POSITION, SIDE RAILS UPX2, CALL LIGHT WITHIN REACH, BED ALARM ARMED. Addendum: 10/22/21 at 1925 by PK BERGMAN RN RN NOTES PT FOUND SEMI FOWLERS DISPLAYING NO S/S OF DISTRESS, FLACC = 0, RIKERS = 3 AND BILATERAL RISE AND FALL OF THE CHEST OBSERVED. HOB = 30 DEGREES. > 5 ML RESIDUAL MEASURED VIA OG TUBE. R UA PICC IS PATIENT AND INTACT. DOMINGO CATH BELOW PATIENT DRAINING BY GRAVITY. SBAR AND REPORT GIVEN TO ELECTRIC MOTOR REBUILDER RN, ALL QUESTIONS ANSWERED. SAFETY MEASURES IN PLACE, BED LOCKED AND IN LOWEST POSITION, SIDE RAILS UPX2, CALL LIGHT WITHIN REACH, BED ALARM ARMED. PT ENDORSED IN STABLE CONDITION FOR ILIANA.
[2021-10-22] MEDS: QUETIAPINE FUMARATE 25 MG TABLET PO SCH (22:02)
[2021-10-23] VITALS (93 sets, daily range): BP systolic 84–121; BP diastolic 55–85
[2021-10-23] MEDS: Potassium Chloride 20 MEQ in IV D5W 1,000 ML IV PRN (01:10)
[2021-10-23] MEDS: PROPOFOL 100 ML IV PRN ×6 (01:10→23:22)
[2021-10-23] MEDS ORDERED: NOREPINEPHRINE 8MG/250ML RTU 250 ML IV ONE (01:49)
[2021-10-23] MEDS: NOREPINEPHRINE 8 MG in IV NS 0.9% 242 ML IV PRN ×3 (01:51→17:06)
[2021-10-23] MEDS: VANCOMYCIN 1 GM in IV D5W 250 ML IV SCH (03:01)
[2021-10-23] MEDS: MEROPENEM 1 G in IV NS 0.9% 100 ML IV SCH ×3 (04:00→21:00)
[2021-10-23] MEDS: HYDROCORTISONE SOD SUCCINATE 100 MG/2 ML VIAL IV SCH ×3 (04:01→21:02)
[2021-10-23] MEDS: BLOOD SUGAR DIAGNOSTIC 1 EACH STRIP IN SCH ×3 (05:30→16:36)
[2021-10-23] MEDS: INSULIN REGULAR, HUMAN 100 UNIT/ML 3 ML VIAL SQ PRN ×2 (06:06→14:49)
[2021-10-23 08:27] LABS: BASOPHILS % (AUTO) 0.1 % (0.0-2.0); EOSINOPHILS % (AUTO) 0.1 % (0.0-6.0); HEMATOCRIT 32 % (39-51); LYMPHOCYTES # (AUTO) 1.4 K/uL (0.8-4.8); LYMPHOCYTES % (AUTO) 7.1 % (20.0-44.0); MEAN CORPUSCULAR HGB CONC 32 g/dl (31.0-36.0); MEAN CORPUSCULAR VOLUME 95 fL (80-96); MONOCYTES # (AUTO) 0.8 K/uL (0.1-1.30); MONOCYTES % (AUTO) 4.2 % (2.0-12.0); NEUTROPHILS # (AUTO) 17.7 K/uL (1.8-8.9); NEUTROPHILS % (AUTO) 88.5 % (43.0-81.0); PLATELET COUNT (AUTO) 365 K/uL (150-450); RED BLOOD CELL COUNT(AUTO) 3.32 MIL/uL (4.5-6.0)
[2021-10-23 09:10] LABS: ALBUMIN 1.7 g/dL (3.4-5.0); BILIRUBIN,TOTAL 0.5 mg/dL (0.2-1.0); CALCIUM, SERUM 8.4 mg/dL (8.5-10.1); CREATININE 0.3 mg/dL (0.6-1.3); POTASSIUM 5.6 mmol/L (3.5-5.1); TOTAL PROTEIN, SERUM 5.5 g/dL (6.4-8.2)
[2021-10-23] MEDS: METHIMAZOLE (5MG) 5 MG TABLET PO SCH ×2 (09:47→16:36)
[2021-10-23] MEDS: SIMETHICONE 80 MG TAB.CHEW PO SCH ×2 (09:47→21:00)
[2021-10-23] MEDS: DIVALPROEX SODIUM 250 MG TABLET.DR PO SCH (09:47)
[2021-10-23] MEDS: ASPIRIN 81 MG TAB.CHEW PO SCH (09:47)
[2021-10-23] MEDS: ACIDOPHILUS/BULGARICUS 1 EACH TAB.CHEW PO SCH (09:47)
[2021-10-23] MEDS: Z GUARD REMEDY 4 OZ OINT TP SCH (09:48)
[2021-10-23] MEDS ORDERED: INFANT DEXTROSE 25%-WATER 10 ML DISP.SYRIN IV ONE (10:00)
[2021-10-23] MEDS ORDERED: INSULIN REGULAR, HUMAN 100 UNIT/ML 10 ML VIAL IV ONE (10:00)
--- NOTE | 2021-10-23 10:06 | NUR ---
rn notes kcl is elevated 5.6 get TO order x1 insulin 10u iv push, and dextrose 30ml , also repeat hemoglobin, and hematocrit. order taken and carried out.
[2021-10-23] MEDS: DIVALPROEX SODIUM 125 MG CAP.SPRINK PO SCH ×3 (10:14→16:36)
[2021-10-23 10:25] LABS: HEMOGLOBIN 9.1 g/dL (13.5-17.5)
--- NOTE | 2021-10-23 11:30 | NUR ---
RN NOTES BS-157MG/DL, HELD NS+KCL FLUIDS . MD AWARE OF. DUE MEDICATION ADMINISTERED. ASSIST TURN AND REPOSTION Q 2 HR. WILL FOLLOW UP.
[2021-10-23] MEDS: JEVITY 1.2 CAL 1,000 ML BOTTLE GT PRN (15:59)
[2021-10-23] MEDS ORDERED: VANCOMYCIN 1.25 GM in IV D5W 250 ML IV SCH (16:00)
[2021-10-23] MEDS: TAMSULOSIN 0.4 MG CAP.SR.24H PO SCH (17:05)
[2021-10-23] MEDS: FENTANYL CITRAT IV 2,500 MCG in IV NS 0.9% 200 ML IV PRN (17:13)
[2021-10-23 17:25] LABS: HEMOGLOBIN 8.5 g/dL (13.5-17.5)
--- NOTE | 2021-10-23 18:00 | NUR ---
RN NOTES PM CARE DONE, SUCTION, ASSIST TURN AND REPOSTION Q 2 HR, DUE MEDICATION ADMINISTERED, MEDICATION TITRATE PER PROTOCOL, PATIENT TOLERATING FEEDING WELL, KEEP HOB ELEVATED. PATIENT HAS GENERALIZED EDEMA. DOMINGO DRAINING LIGHT YELLOW OUTPUT. ENDORSED ONCOMING NURSE FOLLOW PLAN OF CARE.
[2021-10-23] MEDS: QUETIAPINE FUMARATE 25 MG TABLET PO SCH (21:00)
[2021-10-24] VITALS (95 sets, daily range): BP systolic 54–134; BP diastolic 31–95
[2021-10-24] MEDS: NOREPINEPHRINE 8 MG in IV NS 0.9% 242 ML IV PRN ×3 (00:01→21:33)
[2021-10-24] MEDS: BLOOD SUGAR DIAGNOSTIC 1 EACH STRIP IN SCH ×4 (00:15→17:35)
[2021-10-24 01:13] LABS: HEMOGLOBIN 8.7 g/dL (13.5-17.5)
[2021-10-24] MEDS: IV NS 0.9% 250 ML IV PRN (01:28)
[2021-10-24] MEDS: PROPOFOL 100 ML IV PRN ×7 (02:06→21:54)
[2021-10-24 04:32] LABS: BASOPHILS % (AUTO) 0.1 % (0.0-2.0); EOSINOPHILS % (AUTO) 0.1 % (0.0-6.0); HEMATOCRIT 25 % (39-51); HEMOGLOBIN 8.2 g/dL (13.5-17.5); LYMPHOCYTES # (AUTO) 1.4 K/uL (0.8-4.8); LYMPHOCYTES % (AUTO) 10.1 % (20.0-44.0); MEAN CORPUSCULAR HGB CONC 33 g/dl (31.0-36.0); MEAN CORPUSCULAR VOLUME 95 fL (80-96); MONOCYTES # (AUTO) 0.9 K/uL (0.1-1.30); MONOCYTES % (AUTO) 6.5 % (2.0-12.0); NEUTROPHILS # (AUTO) 11.3 K/uL (1.8-8.9); NEUTROPHILS % (AUTO) 83.2 % (43.0-81.0); PLATELET COUNT (AUTO) 348 K/uL (150-450); RED BLOOD CELL COUNT(AUTO) 2.64 MIL/uL (4.5-6.0); WHITE BLOOD COUNT (AUTO) 13.6 K/uL (4.3-11.0)
[2021-10-24 04:51] LABS: CREATININE 0.2 mg/dL (0.6-1.3); POTASSIUM 4.8 mmol/L (3.5-5.1)
[2021-10-24 04:53] LABS: BILIRUBIN,TOTAL 0.3 mg/dL (0.2-1.0); TOTAL PROTEIN, SERUM 4.9 g/dL (6.4-8.2)
[2021-10-24 04:56] LABS: ALBUMIN 1.4 g/dL (3.4-5.0)
[2021-10-24] MEDS: HYDROCORTISONE SOD SUCCINATE 100 MG/2 ML VIAL IV SCH ×3 (05:14→21:43)
[2021-10-24] MEDS: MEROPENEM 1 G in IV NS 0.9% 100 ML IV SCH ×3 (05:14→21:43)
[2021-10-24] MEDS: INSULIN REGULAR, HUMAN 100 UNIT/ML 3 ML VIAL SQ PRN ×2 (05:30→13:46)
--- NOTE | 2021-10-24 08:00 | NUR ---
RN NOTES RECEIVED PATIENT ETT/VENT SETTING FIO2- FIO2-40%, PEEP IS 0. PATIENT SEDATED FENTANYL 150MCG/KG/MIN, AND DIPRIVAN 86MCG/KG/MIN. NO ACUTE RESPIRATORY DISTRESS. PATIENT HAS NO SEDATION VACATION PER Dr JOHNSON ORDER. PATIENT HS GENERALIZED EDEMA, NGT INTACT RUNNING JEVITY 45 CC/HR, NO RESIDUA TOLERATING FEEDING WELL. IV ACCESS ON THOMAS PICC LINE INTACT, INFUSING LEVOPHED 0.2 MCG/KG HR INTACT. KEEP HOB ELEVATED FOR ASPIRATION PRECAUTION, ASSIST TURN AND REPOSTION Q 2 HR. DOMINGO DRAINING LIGHT YELLOW OUTPUT. WILL FOLLOW UP.
[2021-10-24] MEDS: ASPIRIN 81 MG TAB.CHEW PO SCH (09:23)
[2021-10-24] MEDS: METHIMAZOLE (5MG) 5 MG TABLET PO SCH ×2 (09:23→16:53)
[2021-10-24] MEDS: DIVALPROEX SODIUM 125 MG CAP.SPRINK PO SCH ×3 (09:23→16:53)
[2021-10-24] MEDS: ACIDOPHILUS/BULGARICUS 1 EACH TAB.CHEW PO SCH (09:23)
[2021-10-24] MEDS: SIMETHICONE 80 MG TAB.CHEW PO SCH ×2 (09:23→21:43)
[2021-10-24] MEDS: Z GUARD REMEDY 4 OZ OINT TP SCH (09:24)
[2021-10-24] MEDS: ALBUMIN 25% 25 GM in PREMIX 1 EA IV SCH ×2 (10:30→21:18)
--- NOTE | 2021-10-24 12:00 | NUR ---
RN NOTES BS-135MG/DL COVERAGE GIVEN, DUE MEDICATION ADMINISTERED VIA OGT, GIVEN 500ML OF FREE WATER FLASH. KEEP HOB ELEVATED FOR ASPIRATION PRECAUTION, ASSIST TURN AND REPOSTION Q 2 HR.
[2021-10-24] MEDS: FENTANYL CITRAT IV 2,500 MCG in IV NS 0.9% 200 ML IV PRN ×2 (13:18→21:06)
--- NOTE | 2021-10-24 14:44 | NUR ---
RN/ICU-SPOKE TO SISTER SEBASTIÁN BY PHONE AND OBTAINED CONSENT WITNESSED BY FABIO RAY ,FOR TRACHIOSTOMY, ANESTHESIA AND BLOOD CONSENT, VERBALIZED UNDERSTANDING OF THE REASON FOR PROCEDURE PREVIOUSLY SPOKE TO DR. ALTMAN TODAY.
--- NOTE | 2021-10-24 15:00 | NUR ---
RN NOTES PATIENT STABLE , NO ACUTE RESPIRATORY DISTRESS, ENDORSED MANJULA RN FOLLOW ILIANA.
[2021-10-24] MEDS: JEVITY 1.2 CAL 1,000 ML BOTTLE GT PRN (17:19)
[2021-10-24] MEDS: TAMSULOSIN 0.4 MG CAP.SR.24H PO SCH (17:19)
--- NOTE | 2021-10-24 18:47 | NUR ---
RN/ICU- VENOUS DOPPLER OF BIL. VELIZ TECH HERE TO PERFORM PROCEDURE.
--- NOTE | 2021-10-24 19:10 | NUR ---
RN NOTE PT RECEIVED IN BED. PT IS TRACH/VENT TOLERATING CURRENT SETTINGS WELL WITH OXYGEN SATURATION >98%. PT CURRENTLY SEDATED. OGT NOTED RUNNING JEVITY 1.2 AT 45 CC/HR. PT TOLERATING WELL WITH NO RESIDUAL NOTED. F/C NOTED DRAINING YELLOW COLORED URINE. IV ACCESS NOTED ON RIGHT UPPER ARM PICC. LINES FLUSHED, AND INTACT. PROPOFOL RUNNING AT 85 MCG/KG/MIN, LEVOPHED AT 0.2 MCG/KG/MIN, AND FENTANYL AT 150 MCG/HR. ALL SAFETY MEASURES IMPLEMENTED. WILL CONTINUE TO MONITOR AND ASSESS FOR ANY CHANGES DURING SHIFT.
--- NOTE | 2021-10-24 19:16 | NUR ---
RN NOTE SPOKE WITH DR. ALTMAN REGARDING PRELIMINARY RESULTS OF US OF LOWER EXTEMITY. RELAYED REUSLTS OF POSITIVE RIGHT GSV AND POSITIVE RIGHT POPV, AWAITING FOR ANY FURTHER ORDERS.
--- NOTE | 2021-10-24 19:40 | NUR ---
RN NOTE PER DR. ALTMAN, RESUME HEPARIN DRIP WITHOUT BOLUS WITH CBC IN AM. CALLED PHARMACY AND SPOKE WITH CARO AND ASKED IF HE WOULD LIKE TO START HEPARIN DRIP OVER OR RESUME FROM PREVIOUS STOP 4 DAYS AGO. PER PHARMACY, START HEPARIN DRIP WITH NEW FORM ALL OVER. ORDER NOTED.
[2021-10-24 20:06] LABS: HEMOGLOBIN 8.2 g/dL (13.5-17.5)
[2021-10-24] MEDS: HEPARIN INFUSION/D5W 500 ML IV PRN (20:48)
[2021-10-24] MEDS ORDERED: NOREPINEPHRINE 8MG/250ML RTU 250 ML IV ONE (21:31)
[2021-10-24] MEDS: QUETIAPINE FUMARATE 25 MG TABLET PO SCH (21:43)
[2021-10-25] VITALS (87 sets, daily range): BP systolic 66–144; BP diastolic 36–99
[2021-10-25] MEDS: PROPOFOL 100 ML IV PRN ×8 (00:39→22:03)
[2021-10-25] MEDS: INSULIN REGULAR, HUMAN 100 UNIT/ML 3 ML VIAL SQ PRN ×4 (00:42→17:39)
[2021-10-25] MEDS: BLOOD SUGAR DIAGNOSTIC 1 EACH STRIP IN SCH ×4 (00:42→17:39)
[2021-10-25 03:27] LABS: BASOPHILS # (AUTO) 0.1 K/uL (0.0-0.2); BASOPHILS % (AUTO) 0.5 % (0.0-2.0); EOSINOPHILS % (AUTO) 0.2 % (0.0-6.0); HEMATOCRIT 23 % (39-51); HEMOGLOBIN 7.2 g/dL (13.5-17.5); LYMPHOCYTES # (AUTO) 1.4 K/uL (0.8-4.8); LYMPHOCYTES % (AUTO) 13.1 % (20.0-44.0); MEAN CORPUSCULAR HGB CONC 32 g/dl (31.0-36.0); MEAN CORPUSCULAR VOLUME 95 fL (80-96); MONOCYTES # (AUTO) 0.6 K/uL (0.1-1.30); MONOCYTES % (AUTO) 5.4 % (2.0-12.0); NEUTROPHILS # (AUTO) 8.9 K/uL (1.8-8.9); NEUTROPHILS % (AUTO) 80.8 % (43.0-81.0); PLATELET COUNT (AUTO) 281 K/uL (150-450); RED BLOOD CELL COUNT(AUTO) 2.37 MIL/uL (4.5-6.0)
[2021-10-25 03:40] LABS: ALBUMIN 1.9 g/dL (3.4-5.0); BILIRUBIN,TOTAL 0.6 mg/dL (0.2-1.0); CALCIUM, SERUM 7.9 mg/dL (8.5-10.1); CREATININE 0.2 mg/dL (0.6-1.3); POTASSIUM 4.4 mmol/L (3.5-5.1); TOTAL PROTEIN, SERUM 4.9 g/dL (6.4-8.2)
--- NOTE | 2021-10-25 03:52 | NUR ---
RN NOTE SPOKE WITH ELDA SMITH REGARDING LATEST HEMOGLOBIN BEING 7.2 AND IF HE WOULD LIKE TO CONTINUE HEPARIN DRIP PER NON ACS PROTOCOL. ELDA SMITH ORDERED TO CONTINUE HEPARIN DRIP FOR NOW AND ORDER H/H FOR 7AM. ORDER NOTED AND CARRIED OUT.
--- NOTE | 2021-10-25 04:18 | NUR ---
RN NOTE PER NON ACS PROTOCOL AND PTT BEING 32.8, BOLUS OF 4800 UNITS AND INCREASE IN DRIP WOULD NEED TO BE DONE. D/T TO H/H BEING LOW, ELDA SMITH ORDERED STAT H/H AND SAID IF BELOW 7 HEPARIN DROP WOULD NEED TO BE STOPPED. WILL F/U WITH ELDA SMITH ONCE H/H IS REPORTED.
[2021-10-25 04:48] LABS: HEMOGLOBIN 8.1 g/dL (13.5-17.5)
--- NOTE | 2021-10-25 04:56 | NUR ---
RN NOTE AFTER REPEAT STAT H/H, RELAYED RESULTS OF HEMOGLOBIN BEING 8.1 TO ELDA SMITH AND PER LUIS, CONTINUE HEPARIN DRIP AND CONTINUE ALL NON ACS PROTOCOLS. PER NON ACS PROTOCOL AND PTT OF 32.8, BOLUS OF 4800 UNITS WILL BE GIVEN AND INCREASE HEPARIN DRIP BY 250 UNITS. ORDER NOTED.
[2021-10-25] MEDS ORDERED: HEPARIN SODIUM, PORCINE 5000 UNITS/1 ML VIAL IV ONE (05:00)
[2021-10-25] MEDS: HYDROCORTISONE SOD SUCCINATE 100 MG/2 ML VIAL IV SCH ×3 (05:09→21:17)
[2021-10-25] MEDS: MEROPENEM 1 G in IV NS 0.9% 100 ML IV SCH ×2 (05:10→13:53)
--- NOTE | 2021-10-25 06:36 | NUR ---
RN NOTE NO CHANGES IN PT CONDITION DURING SHIFT. PT IS TRACH/VENT TOLERATING CURRENT SETTINGS WELL. PT CURRENTLY SEDATED. OGT NOTED RUNNING JEVITY 1.2 AT 45 CC/HR. IV ACCESS NOTED ON RIGHT UPPER ARM PICC. LINES FLUSHED, AND INTACT. PROPOFOL RUNNING AT 85 MCG/KG/MIN, LEVOPHED AT 0.08 MCG/KG/MIN, HEPARIN AT 1350 UNITS/HR AND FENTANYL AT 150 MCG/HR. ALL SAFETY MEASURES IMPLEMENTED. ALL DUE MEDS GIVEN ORDERED. PT KEPT CLEAN AND COMFORTABLE. WILL ENDORSE TO MORNING SHIFT RN FOR ILIANA.
--- NOTE | 2021-10-25 07:50 | NUR ---
ICU/RN PT IS INTUBATED ,ON THE VENT AC MODE,FIO2-40%,SAT O2-100%.SEDATED WITH HIGH DOSE OF DIPRIVAN AND FENTANYL.ON LEVOPHED AND HEPARIN DRIP.RIGHT UPPER ARM PICC LINE.OG TUBE INFUSING JEVITY AT 45 ML/HR.NO RESIDUAL NOTED.F/C IN PLACE DRAINING WITH WHIT URINE,GENERELISED EDEMA PRESENT.SACRAL WOUND COVERED WITH DRESSING.LABS REVIEW. AWARE.
[2021-10-25 08:04] LABS: BAND % (MANUAL) 1 % (0.0-5.0); LYMPHOCYTES % (MANUAL) 19 % (16-48); MONOCYTES % (MANUAL) 5 % (0-11.0); NEUTROPHILS % (MANUAL) 75 (42-76)
[2021-10-25] MEDS: DIVALPROEX SODIUM 125 MG CAP.SPRINK PO SCH ×3 (08:31→17:39)
[2021-10-25] MEDS: ASPIRIN 81 MG TAB.CHEW PO SCH (08:32)
[2021-10-25] MEDS: ACIDOPHILUS/BULGARICUS 1 EACH TAB.CHEW PO SCH (08:32)
[2021-10-25] MEDS: SIMETHICONE 80 MG TAB.CHEW PO SCH ×2 (08:32→21:17)
[2021-10-25] MEDS: METHIMAZOLE (5MG) 5 MG TABLET PO SCH ×2 (08:32→17:39)
[2021-10-25] MEDS: Z GUARD REMEDY 4 OZ OINT TP SCH (08:33)
[2021-10-25] MEDS: JEVITY 1.2 CAL 1,000 ML BOTTLE GT PRN (09:29)
--- NOTE | 2021-10-25 13:30 | NUR ---
ICU/RN APTT-109.9.HEPARIN DRIP PLACED ON HOLD ORDERED.
[2021-10-25] MEDS: FENTANYL CITRAT IV 2,500 MCG in IV NS 0.9% 200 ML IV PRN (14:19)
--- NOTE | 2021-10-25 14:30 | NUR ---
ICU/RN HEPARIN DRIP RESTARTED BY PROTOCOL.
[2021-10-25] MEDS: NOREPINEPHRINE 8 MG in IV NS 0.9% 242 ML IV PRN (16:16)
[2021-10-25] MEDS: HEPARIN INFUSION/D5W 500 ML IV PRN (16:27)
--- NOTE | 2021-10-25 17:35 | NUR ---
ICU/RN PM CARE PROVIDED.DUE MEDS ARE GIVEN ORDERED.WOUND DRESSING DONE.SUCTION PROVIDED.REPOSITION FOR COMFORT.
[2021-10-25] MEDS: TAMSULOSIN 0.4 MG CAP.SR.24H PO SCH (17:41)
[2021-10-25] MEDS: QUETIAPINE FUMARATE 25 MG TABLET PO SCH (21:17)
[2021-10-25] MEDS: CEFEPIME 2 GM in IV D5W 100 ML IV SCH (21:18)
[2021-10-26] VITALS (89 sets, daily range): BP systolic 73–142; BP diastolic 50–89
[2021-10-26] MEDS: BLOOD SUGAR DIAGNOSTIC 1 EACH STRIP IN SCH ×4 (00:02→18:02)
[2021-10-26] MEDS: INSULIN REGULAR, HUMAN 100 UNIT/ML 3 ML VIAL SQ PRN ×2 (00:05→12:20)
[2021-10-26] MEDS: PROPOFOL 100 ML IV PRN ×7 (01:20→21:54)
[2021-10-26 04:47] LABS: HEMATOCRIT 23 % (39-51); HEMOGLOBIN 7.4 g/dL (13.5-17.5); LYMPHOCYTES # (AUTO) 1.2 K/uL (0.8-4.8); LYMPHOCYTES % (AUTO) 11.3 % (20.0-44.0); MEAN CORPUSCULAR HGB CONC 32 g/dl (31.0-36.0); MEAN CORPUSCULAR VOLUME 96 fL (80-96); MONOCYTES # (AUTO) 0.5 K/uL (0.1-1.30); MONOCYTES % (AUTO) 4.9 % (2.0-12.0); NEUTROPHILS # (AUTO) 9.2 K/uL (1.8-8.9); NEUTROPHILS % (AUTO) 83.8 % (43.0-81.0); PLATELET COUNT (AUTO) 329 K/uL (150-450)
[2021-10-26] MEDS: FENTANYL CITRAT IV 2,500 MCG in IV NS 0.9% 200 ML IV PRN ×2 (05:19→21:59)
[2021-10-26] MEDS: CEFEPIME 2 GM in IV D5W 100 ML IV SCH ×3 (05:40→23:51)
[2021-10-26] MEDS: HYDROCORTISONE SOD SUCCINATE 100 MG/2 ML VIAL IV SCH ×3 (05:40→23:51)
[2021-10-26 06:18] LABS: ALBUMIN 1.6 g/dL (3.4-5.0); BILIRUBIN,TOTAL 0.5 mg/dL (0.2-1.0); CALCIUM, SERUM 7.8 mg/dL (8.5-10.1); CREATININE 0.2 mg/dL (0.6-1.3); POTASSIUM 4.5 mmol/L (3.5-5.1); TOTAL PROTEIN, SERUM 4.8 g/dL (6.4-8.2)
[2021-10-26 06:44] LABS: BAND % (MANUAL) 1 % (0.0-5.0); LYMPHOCYTES % (MANUAL) 9 % (16-48); METAMYELOCYTES % 1 % (0-0); MONOCYTES % (MANUAL) 1 % (0-11.0); NEUTROPHILS % (MANUAL) 88 (42-76)
--- NOTE | 2021-10-26 07:20 | NUR ---
RN NOTES PT FOUND SEMI FOWLERS DISPLAYING NO S/S OF DISTRESS, FLACC = 0, RIKERS = 3 AND BILATERAL RISE AND FALL OF THE CHEST OBSERVED. R UA PICC IS PATIENT AND INTACT. DOMINGO CATH BELOW PATIENT DRAINING BY GRAVITY. < 5 ML RESIDUAL MEASURED VIA OG TUBE. VSS, RN WILL MONITOR AND TREAT THROUGHOUT SHIFT. SAFETY MEASURES IN PLACE, BED LOCKED AND IN LOWEST POSITION, SIDE RAILS UPX2, CALL LIGHT WITHIN REACH, BED ALARM ARMED.
[2021-10-26] MEDS: NOREPINEPHRINE 8 MG in IV NS 0.9% 242 ML IV PRN (07:30)
[2021-10-26] MEDS: DIVALPROEX SODIUM 125 MG CAP.SPRINK PO SCH ×3 (08:13→17:06)
[2021-10-26] MEDS: ACIDOPHILUS/BULGARICUS 1 EACH TAB.CHEW PO SCH (08:13)
[2021-10-26] MEDS: SIMETHICONE 80 MG TAB.CHEW PO SCH ×2 (08:13→23:54)
[2021-10-26] MEDS: METHIMAZOLE (5MG) 5 MG TABLET PO SCH ×2 (08:13→17:06)
[2021-10-26] MEDS: ASPIRIN 81 MG TAB.CHEW PO SCH (08:13)
[2021-10-26] MEDS: Z GUARD REMEDY 4 OZ OINT TP SCH (08:14)
[2021-10-26] MEDS ORDERED: POLYETHYLENE GLYCOL 3350 17 GM POWD.PACK PO PRN (12:00)
[2021-10-26] MEDS: JEVITY 1.2 CAL 1,000 ML BOTTLE GT PRN (13:32)
[2021-10-26] MEDS: HEPARIN INFUSION/D5W 500 ML IV PRN (15:50)
[2021-10-26] MEDS: TAMSULOSIN 0.4 MG CAP.SR.24H PO SCH (17:06)
--- NOTE | 2021-10-26 19:24 | NUR ---
RN NOTES PT FOUND SEMI FOWLERS DISPLAYING NO S/S OF DISTRESS, FLACC = 0, RIKERS = 3 AND BILATERAL RISE AND FALL OF THE CHEST OBSERVED. R UA PICC IS PATIENT AND INTACT. DOMINGO CATH BELOW PATIENT DRAINING BY GRAVITY. SBAR AND REPORT GIVEN TO ENGINE ROOM HELPER RN, INCLUDING INSTRUCTIONS TO STOP HEPARIN @ 0000. SAFETY MEASURES IN PLACE, BED LOCKED AND IN LOWEST POSITION, SIDE RAILS UPX2, CALL LIGHT WITHIN REACH, BED ALARM ARMED. PT ENDORSED IN STABLE CONDITION FOR ILIANA.
--- NOTE | 2021-10-26 20:00 | NUR ---
INFORMATICS EDUCATOR. RECEIVED THE PT REST IN BED. ORALLY INTUBATED, SEDATED WITH PROPOFOL 85MCG/KG/MIN, FENTANYL 150MCG, HEPARIN 1150 U/H, FC PATENT. OGT FEEDING 45ML/H. HOB ELEVATED, AFEBRILE. PT IS VERY SEDATED. PROPOFOL TITRATED DOWN. WILL MONITOR.
[2021-10-26 20:28] LABS: HEMOGLOBIN 8.1 g/dL (13.5-17.5)
[2021-10-26] MEDS: QUETIAPINE FUMARATE 25 MG TABLET PO SCH (22:00)
[2021-10-27] VITALS (113 sets, daily range): BP systolic 65–146; BP diastolic 40–100
--- NOTE | 2021-10-27 01:11 | NUR ---
NPO. FOR TRACH TODAY. HEPARIN DRIP D/CFOR TRACH
[2021-10-27] MEDS: BLOOD SUGAR DIAGNOSTIC 1 EACH STRIP IN SCH ×4 (02:25→17:58)
[2021-10-27 04:06] LABS: BASOPHILS % (AUTO) 0.1 % (0.0-2.0); EOSINOPHILS % (AUTO) 0.1 % (0.0-6.0); HEMATOCRIT 26 % (39-51); HEMOGLOBIN 8.4 g/dL (13.5-17.5); LYMPHOCYTES # (AUTO) 1.3 K/uL (0.8-4.8); LYMPHOCYTES % (AUTO) 12.5 % (20.0-44.0); MEAN CORPUSCULAR HGB CONC 33 g/dl (31.0-36.0); MEAN CORPUSCULAR VOLUME 95 fL (80-96); MONOCYTES # (AUTO) 0.6 K/uL (0.1-1.30); MONOCYTES % (AUTO) 5.9 % (2.0-12.0); NEUTROPHILS # (AUTO) 8.7 K/uL (1.8-8.9); NEUTROPHILS % (AUTO) 81.4 % (43.0-81.0); PLATELET COUNT (AUTO) 338 K/uL (150-450); RED BLOOD CELL COUNT(AUTO) 2.72 MIL/uL (4.5-6.0); WHITE BLOOD COUNT (AUTO) 10.7 K/uL (4.3-11.0)
[2021-10-27 04:24] LABS: CALCIUM, SERUM 7.7 mg/dL (8.5-10.1); CREATININE 0.2 mg/dL (0.6-1.3); POTASSIUM 3.7 mmol/L (3.5-5.1)
[2021-10-27 04:29] LABS: ALBUMIN 1.5 g/dL (3.4-5.0); BILIRUBIN,TOTAL 0.7 mg/dL (0.2-1.0)
[2021-10-27] MEDS: CEFEPIME 2 GM in IV D5W 100 ML IV SCH ×3 (04:54→21:05)
[2021-10-27] MEDS: HYDROCORTISONE SOD SUCCINATE 100 MG/2 ML VIAL IV SCH ×3 (04:55→21:05)
[2021-10-27] MEDS: PROPOFOL 100 ML IV PRN ×5 (05:33→18:19)
--- NOTE | 2021-10-27 07:30 | NUR ---
RN ON SITE.AM CARE GIVEN. PT IS NPO. HEPARIN OFF AT 0000.
--- NOTE | 2021-10-27 07:31 | NUR ---
RN NOTES PT FOUND SEMI FOWLERS DISPLAYING NO S/S OF DISTRESS, FLACC = 0, RIKERS = 3 AND BILATERAL RISE AND FALL OF THE CHEST OBSERVED. SAND TESTER REPORTS TURNING HEPARIN DRIP AND TUBE FEEDING OFF MIDNIGHT. R UA PICC IS PATIENT AND INTACT. DOMINGO CATH BELOW PATIENT DRAINING BY GRAVITY. VSS, RN WILL MONITOR AND TREAT THROUGHOUT SHIFT. SAFETY MEASURES IN PLACE, BED LOCKED AND IN LOWEST POSITION, SIDE RAILS UPX2, CALL LIGHT WITHIN REACH, BED ALARM ARMED.
--- NOTE | 2021-10-27 08:00 | NUR ---
RN NOTE TRACHEOSTOMY STARTED ON PATIENT AT BEDSIDE, DR CONDE AND ELDA DE LA O AT BEDSIDE. TIME OUT PERFORMED BY MICHELE RAYMOND AT 0803. 10 MG VECURONIUM WAS ORDERED BY DR CONDE. ELDA DE LA O ORDERED PROPOFOL TITRATION TO BE INCREASED TO 100 MCG/KG/MIN. RN WILL MONITOR PT THROUGHOUT PROCEDURE.
[2021-10-27] MEDS: NOREPINEPHRINE 8 MG in IV NS 0.9% 242 ML IV PRN (08:36)
--- NOTE | 2021-10-27 08:40 | NUR ---
BED SIDE TRACH DONE. ZERO COMPLICATIONS. ALARMS SET AND AUDIBLE. TRACH SECURED. AMBUBAG AT HEAD OF BED.
--- NOTE | 2021-10-27 08:40 | NUR ---
RN NOTE PROCEDURE COMPLETED. TRACHEOSTOMY IN PLACE. NO COMPLICATIONS DURING PROCEDURE. RN WILL MONITOR AND TREAT.
[2021-10-27] MEDS: ACIDOPHILUS/BULGARICUS 1 EACH TAB.CHEW PO SCH (09:00)
[2021-10-27] MEDS: METHIMAZOLE (5MG) 5 MG TABLET PO SCH ×2 (09:00→17:57)
[2021-10-27] MEDS: SIMETHICONE 80 MG TAB.CHEW PO SCH ×2 (09:00→21:06)
[2021-10-27] MEDS: DIVALPROEX SODIUM 125 MG CAP.SPRINK PO SCH ×3 (09:00→17:57)
[2021-10-27] MEDS: ASPIRIN 81 MG TAB.CHEW PO SCH (09:00)
--- NOTE | 2021-10-27 09:00 | NUR ---
DOCUMENTATION SPECIALIST VISIT DOCUMENTATION SPECIALIST BUCIO VISITED PATIENT. RN SPOKE TO DOCUMENTATION SPECIALIST ABOUT HEPARIN DRIP AND PEG. DOCUMENTATION SPECIALIST STATED THAT DOCTORS WILL BE CONTACTED AND WILL GET BACK TO RN DOROTHY. RN ACKNOWLEDGED. ONGOING MONITORING PT VS.
[2021-10-27] MEDS ORDERED: VECURONIUM 10 MG VIAL IV ONE (09:20)
[2021-10-27] MEDS ORDERED: NORMAL SALINE 10 ML DISP.SYRIN IV ONE (09:20)
[2021-10-27] MEDS: Z GUARD REMEDY 4 OZ OINT TP SCH (10:01)
--- NOTE | 2021-10-27 13:11 | NUR ---
RN NOTE OR TEAM AND DR ROJO AND DR LOVE STARTING PEG PLACEMENT AT BEDSIDE. TIME OUT CALLED AT 1310 BY LAYNE FERNANDES. PT LAYNE CORCORAN WILL MONITOR.
--- NOTE | 2021-10-27 13:30 | NUR ---
RN NOTE PEG PLACEMENT SUCCESSFUL, LIME SUPERVISOR MARILEE ATTENDING TO PT AND WILL ENTER POST PROCEDURE ORDERS. VITAL SIGNS ARE STABLE. RN WILL CONTINUE MONITORING AND TREATMENT.
[2021-10-27] MEDS: FENTANYL CITRAT IV 2,500 MCG in IV NS 0.9% 200 ML IV PRN (14:09)
[2021-10-27] MEDS ORDERED: RIVAROXABAN 15 MG TABLET PO SCH (17:00)
[2021-10-27] MEDS: TAMSULOSIN 0.4 MG CAP.SR.24H PO SCH (17:58)
--- NOTE | 2021-10-27 19:05 | NUR ---
RN NOTES PT FOUND SEMI FOWLERS DISPLAYING NO S/S OF DISTRESS, FLACC = 0, RIKERS = 3 AND BILATERAL RISE AND FALL OF THE CHEST OBSERVED. NEW TRACHEOSTOMY HAS NO ACTIVE BLEEDING. NEW PEG HAS NO ACTIVE BLEEDING, DRESSING IS CLEAN AND DRY. R UA PICC IS PATIENT AND INTACT. DOMINGO CATH BELOW PATIENT DRAINING BY GRAVITY. SBAR AND REPORT GIVEN TO MATRIX BATH ATTENDANT RN, ALL QUESTIONS ANSWERED. SAFETY MEASURES IN PLACE, BED LOCKED AND IN LOWEST POSITION, SIDE RAILS UPX2, CALL LIGHT WITHIN REACH, BED ALARM ARMED.
[2021-10-27] MEDS: QUETIAPINE FUMARATE 25 MG TABLET PO SCH (21:06)
[2021-10-28] VITALS (96 sets, daily range): BP systolic 79–118; BP diastolic 49–85
[2021-10-28] MEDS: BLOOD SUGAR DIAGNOSTIC 1 EACH STRIP IN SCH ×5 (00:33→23:36)
[2021-10-28] MEDS: PROPOFOL 100 ML IV PRN ×2 (00:50→08:05)
[2021-10-28 04:22] LABS: BASOPHILS % (AUTO) 0.1 % (0.0-2.0); HEMATOCRIT 25 % (39-51); HEMOGLOBIN 8.2 g/dL (13.5-17.5); LYMPHOCYTES # (AUTO) 1.2 K/uL (0.8-4.8); LYMPHOCYTES % (AUTO) 10.7 % (20.0-44.0); MEAN CORPUSCULAR HGB CONC 33 g/dl (31.0-36.0); MEAN CORPUSCULAR VOLUME 95 fL (80-96); MONOCYTES # (AUTO) 0.4 K/uL (0.1-1.30); MONOCYTES % (AUTO) 3.6 % (2.0-12.0); NEUTROPHILS # (AUTO) 9.7 K/uL (1.8-8.9); NEUTROPHILS % (AUTO) 85.6 % (43.0-81.0); PLATELET COUNT (AUTO) 327 K/uL (150-450); RED BLOOD CELL COUNT(AUTO) 2.65 MIL/uL (4.5-6.0); WHITE BLOOD COUNT (AUTO) 11.3 K/uL (4.3-11.0)
[2021-10-28 04:45] LABS: ALBUMIN 1.5 g/dL (3.4-5.0); BILIRUBIN,TOTAL 0.6 mg/dL (0.2-1.0); CALCIUM, SERUM 7.5 mg/dL (8.5-10.1); CREATININE 0.2 mg/dL (0.6-1.3); POTASSIUM 3.1 mmol/L (3.5-5.1)
[2021-10-28] MEDS: CEFEPIME 2 GM in IV D5W 100 ML IV SCH ×3 (05:11→20:39)
[2021-10-28] MEDS: HYDROCORTISONE SOD SUCCINATE 100 MG/2 ML VIAL IV SCH ×3 (05:11→20:39)
[2021-10-28] MEDS: JEVITY 1.2 CAL 1,000 ML BOTTLE GT PRN (05:19)
--- NOTE | 2021-10-28 07:30 | NUR ---
OPENING NOTE: REPORT RECEIVED FROM BECCA TILLMAN. ORDERS AND LABS REVIEWED DURING REPORT. PER REPORT PT WAS TRACH'D AND PEGGED YESTERDAY WITHOUT DIFFICULTY. TUBE FEEDING RESTARTED EARLY THIS AM. FENTANYL GTT TITRATED OFF OVERNIGHT. DIPRIVAN CONTINUES TO INFUSE AT 30MCG/KG/MIN PER MD ORDERS. PT CHECKED ON HOURLY AND PRN BY NURSING STAFF.
[2021-10-28] MEDS ORDERED: PHARMACY TO CHANGE PO MEDS TO GT/NG XX PRN (08:00)
[2021-10-28] MEDS ORDERED: POLYETHYLENE GLYCOL 3350 17 GM POWD.PACK GT PRN (08:30)
[2021-10-28] MEDS: ACETAMINOPHEN 650 MG/20.3 ML UDC NG PRN (08:33)
[2021-10-28] MEDS: METHIMAZOLE (5MG) 5 MG TABLET GT SCH ×2 (08:33→18:00)
[2021-10-28] MEDS: ASPIRIN 81 MG TAB.CHEW GT SCH (08:33)
[2021-10-28] MEDS: DIVALPROEX SODIUM 125 MG CAP.SPRINK GT SCH ×3 (08:34→18:00)
[2021-10-28] MEDS: ACIDOPHILUS/BULGARICUS 1 EACH TAB.CHEW GT SCH (08:34)
[2021-10-28] MEDS: SIMETHICONE 80 MG TAB.CHEW GT SCH ×2 (08:34→21:08)
[2021-10-28] MEDS: Z GUARD REMEDY 4 OZ OINT TP SCH (08:35)
[2021-10-28] MEDS: RIVAROXABAN 15 MG TABLET GT SCH ×2 (08:35→18:01)
[2021-10-28] MEDS ORDERED: POTASSIUM CHLORIDE 20 MEQ POWDER PACKET GT SCH (10:00)
[2021-10-28] MEDS: NOREPINEPHRINE 8 MG in IV NS 0.9% 242 ML IV PRN (11:23)
[2021-10-28] MEDS: INSULIN REGULAR, HUMAN 100 UNIT/ML 3 ML VIAL SQ PRN ×2 (13:09→23:25)
--- NOTE | 2021-10-28 16:30 | NUR ---
PT PUT ON FIRST STEP KCI MATTRESS PER MD ORDERS
[2021-10-28] MEDS: TAMSULOSIN 0.4 MG CAP.SR.24H GT SCH (17:59)
[2021-10-28] MEDS: IV NS 0.9% 250 ML IV PRN (18:00)
--- NOTE | 2021-10-28 18:25 | NUR ---
END OF SHIFT NOTE: NO SIGNIFICANT EVENTS THIS SHIFT. PROPOFOL TURNED OFF AT [address] ALTMAN, PT APPEARS CALM WITHOUT DISTRESS. LEVOPHED GTT CONTINUES TO INFUSE PER MD ORDERS, CURRENTLY INFUSING AT 0.04 MCG/KG/MIN. 1BM THIS SHIFT. PT CHECKED ON HOURLY AND PRN BY NURSING STAFF.
--- NOTE | 2021-10-28 19:30 | NUR ---
MANAGER PHARMACEUTICAL NOTES RECEIVED PT FOR CONTINUITY OF CARE. PATIENT A/OX0 IN NO S/SX OF ACUTE DISTRESS AT THIS TIME; CURRENTLY ON MECHANICAL VENT; SETTING PRESCRIBED, WITH 02 SAT >95% AT THIS TIME. RECEIVED PT WITH RUNNING DRIP OF LEVO RECEIVED AT 0.04MCG/KG/MIN MONITORED AND ADJUSTED PER PROTOCOL. WITH GTUBE FEEDING RUNNING PRESCRIBED. WITH DOMINGO CATH IN PLACE, SMALL URINE OUTPUT NOTED AT THIS TIME.WILL ENSURE SAFETY MEASURES WITHIN THE SHIFT. PATIENT BED ALARM IS ON. HEAD OF BED ELEVATED. BED IS LOCKED, IN LOWEST POSITION AND SIDE RAILS UP. CALL LIGHT WITHIN REACH OF THE PATIENT. APPLICABLE ISOLATION PRECAUTIONS IN PLACE. WILL CONTINUE TO MONITOR AND REASSESS FOR ANY CHANGES AND WILL CARRY OUT ANY ONGOING AND ACTIVE MD ORDER.
--- NOTE | 2021-10-28 20:15 | NUR ---
RN NOTES RECEIVED ER ADMISSION REPORT FROM LAYNE VANG. ALL PERTINENT ADMISSION INFO REGARDING PT NOTED. WILL WAIT FOR PT TO BE TRANSFERRED TO UNIT AND ADDRESS NEEDS ACCORDINGLY. DYNAMIC ETCHING PROCESSOR MADE AWARE. Addendum: 10/28/21 at 2107 by DULCE KO RN CORRECTION: WRONG NOTES FOR DIFF PT. PLS DISREGARD.
[2021-10-28] MEDS: QUETIAPINE FUMARATE 25 MG TABLET PO SCH (21:01)
[2021-10-29] VITALS (71 sets, daily range): BP systolic 89–123; BP diastolic 53–91
--- NOTE | 2021-10-29 | NUR ---
RN NOTES PATIENT REMAINED TO BE IN NO SIGNS OF ACUTE RESPIRATORY DISTRESS , VITAL SIGNS STABLE AT THIS TIME. REGULAR TURNING AND REPOSITIONING DONE Q2H AND SUCTIONING RENDERED. WILL CONTINUE TO MONITOR AND REASSESS FOR ANY CHANGES THROUGHOUT THE SHIFT.
--- NOTE | 2021-10-29 04:00 | NUR ---
RN NOTES NO NOTED CHANGES IN PATIENT CONDITION AT THIS TIME; PATIENT VITALS STABLE, NO SIGNS OF ACUTE RESPIRATORY DISTRESS. AM PATIENT CARE RENDERED.WILL CONTINUE TO MONITOR AND REASSESS FOR ANY CHANGES THROUGHOUT THE SHIFT.
[2021-10-29 05:05] LABS: BASOPHILS % (AUTO) 0.1 % (0.0-2.0); LYMPHOCYTES # (AUTO) 0.8 K/uL (0.8-4.8); LYMPHOCYTES % (AUTO) 13.4 % (20.0-44.0); MEAN CORPUSCULAR HGB CONC 33 g/dl (31.0-36.0); MEAN CORPUSCULAR VOLUME 95 fL (80-96); MONOCYTES # (AUTO) 0.4 K/uL (0.1-1.30); MONOCYTES % (AUTO) 6.1 % (2.0-12.0); NEUTROPHILS % (AUTO) 80.4 % (43.0-81.0); PLATELET COUNT (AUTO) 229 K/uL (150-450); WHITE BLOOD COUNT (AUTO) 6.3 K/uL (4.3-11.0)
[2021-10-29] MEDS: CEFEPIME 2 GM in IV D5W 100 ML IV SCH ×3 (05:14→21:12)
[2021-10-29] MEDS: HYDROCORTISONE SOD SUCCINATE 100 MG/2 ML VIAL IV SCH ×3 (05:14→21:12)
[2021-10-29] MEDS: BLOOD SUGAR DIAGNOSTIC 1 EACH STRIP IN SCH ×4 (05:24→23:56)
[2021-10-29] MEDS: INSULIN REGULAR, HUMAN 100 UNIT/ML 3 ML VIAL SQ PRN (05:25)
[2021-10-29 05:33] LABS: BILIRUBIN,TOTAL 0.6 mg/dL (0.2-1.0); CALCIUM, SERUM 7.3 mg/dL (8.5-10.1); CREATININE 0.3 mg/dL (0.6-1.3); TOTAL PROTEIN, SERUM 4.7 g/dL (6.4-8.2)
[2021-10-29 06:01] LABS: POTASSIUM 2.7 mmol/L (3.5-5.1)
[2021-10-29 06:02] LABS: ALBUMIN 1.3 g/dL (3.4-5.0)
[2021-10-29 06:07] LABS: HEMATOCRIT 18 % (39-51); HEMOGLOBIN 5.9 g/dL (13.5-17.5); RED BLOOD CELL COUNT(AUTO) 1.89 MIL/uL (4.5-6.0)
--- NOTE | 2021-10-29 06:10 | NUR ---
"RN NOTES CRITICAL LAB RECEIVED: K: 2.7 H&H 5.9 | 17.9 ALBUMIN: 1.3. NOTIFIED ONCAIDE ABARCA (FILOMENA SCHAEFER) SECURED ORDER FOR THE FOLLOWIN MEQ IV POTASSIUM; RECHECK K LEVEL ONCE DONE AND 1U PRBC AND RECHECK H&H 1HOUR POST TRANSFUSION. PREPARATOR MADE AWARE. WILL CARRY OUT ORDER."
[2021-10-29 06:38] LABS: LYMPHOCYTES % (MANUAL) 8 % (16-48); MONOCYTES % (MANUAL) 6 % (0-11.0); NEUTROPHILS % (MANUAL) 86 (42-76)
--- NOTE | 2021-10-29 06:40 | NUR ---
RN CLOSING NOTE: PATIENT REMAINS IN ROOM IN NO SIGNS OF RESPIRATORY DISTRESS, PATIENT STILL ON MECH VENT; SETTINGS PRESCRIBED;TOLERATING WELL SATURATING @ >95% SP02. SAFETY MEASURES IMPLEMENTED, BED IN LOWEST POSITION, LOCKED, SIDE RAILS UP, CALL LIGHT WITHIN REACH. ALL NEEDS AND ORDERS ADDRESSED DURING THE SHIFT. IV ACCESS MAINTAINED INTACT, SECURED AND FLUSHING WELL. ALL DUE MEDS GIVEN ORDERED & SCHEDULED ; PATIENT TOLERATED WELL. PT JUST BEEN OFF FROM PRESSOR, STILL ABLE TO MAINTAIN BP WNL. STILL WITH ON GOING TUBE FEEDING PRESCRIBED; TOLERATED WELL. PATIENT KEPT CLEAN AND COMFORTABLE WITHIN THE SHIFT. CRITICAL LAB RECEIVED AND ORDERS SECURED TO BE CARRIED OUT. PATIENT ENDORSED TO INCOMING SHIFT RN WITH STABLE VITAL SIGN AND FOR CONTINUITY OF CARE.
[2021-10-29] MEDS: POTASSIUM CL. PREMIX PERIPHER. 50 ML IV SCH ×4 (06:50→10:47)
--- NOTE | 2021-10-29 07:30 | NUR ---
OPENING NOTE: REPORT RECEIVED FROM JENNIFER TILLMAN. PER REPORT LEVOPHED GTT STOPPED AT 0600 THIS AM. POTASSIUM IVPB BAG 1 OF 4 CURRENTLY INFUSING PER MD ORDERS FOR K+ OF 2.7. REDRAW FOR H/H HAS BEEN ORDERED. NO SIGNS OF BLEEDING NOTED. PT TRACH TO VENT WITHOUT DIFFICULTY. PT CHECKED ON HOURLY AND PRN BY NURSING STAFF.
[2021-10-29 07:32] LABS: BASOPHILS % (AUTO) 0.2 % (0.0-2.0); HEMATOCRIT 23 % (39-51); HEMOGLOBIN 7.4 g/dL (13.5-17.5); LYMPHOCYTES # (AUTO) 0.6 K/uL (0.8-4.8); LYMPHOCYTES % (AUTO) 8.5 % (20.0-44.0); MEAN CORPUSCULAR HGB CONC 33 g/dl (31.0-36.0); MEAN CORPUSCULAR VOLUME 95 fL (80-96); MONOCYTES # (AUTO) 0.4 K/uL (0.1-1.30); MONOCYTES % (AUTO) 5.2 % (2.0-12.0); NEUTROPHILS # (AUTO) 6.1 K/uL (1.8-8.9); NEUTROPHILS % (AUTO) 86.1 % (43.0-81.0); PLATELET COUNT (AUTO) 274 K/uL (150-450); RED BLOOD CELL COUNT(AUTO) 2.37 MIL/uL (4.5-6.0); WHITE BLOOD COUNT (AUTO) 7.1 K/uL (4.3-11.0)
[2021-10-29 07:53] LABS: CALCIUM, SERUM 7.2 mg/dL (8.5-10.1); CREATININE 0.3 mg/dL (0.6-1.3)
[2021-10-29 07:56] LABS: POTASSIUM 2.7 mmol/L (3.5-5.1)
--- NOTE | 2021-10-29 08:00 | NUR ---
INITIAL HGB THIS AM WAS 5.9, 1 UNIT OF PRBCS ORDERED. REDRAW OF H/H RESULTED AT 7.10/08. PER DR BUCIO BLOOD TRANSFUSION CANCELLED.
[2021-10-29] MEDS: METHIMAZOLE (5MG) 5 MG TABLET GT SCH ×2 (08:39→17:44)
[2021-10-29] MEDS: SIMETHICONE 80 MG TAB.CHEW GT SCH ×2 (08:39→21:12)
[2021-10-29] MEDS: DIVALPROEX SODIUM 125 MG CAP.SPRINK GT SCH ×3 (08:40→17:44)
[2021-10-29] MEDS: RIVAROXABAN 15 MG TABLET GT SCH ×2 (08:40→17:45)
[2021-10-29] MEDS: Z GUARD REMEDY 4 OZ OINT TP SCH (08:41)
[2021-10-29] MEDS: ASPIRIN 81 MG TAB.CHEW GT SCH (08:41)
[2021-10-29] MEDS: ACIDOPHILUS/BULGARICUS 1 EACH TAB.CHEW GT SCH (08:41)
--- NOTE | 2021-10-29 10:41 | NUR ---
PER POLINA COTE YESTERDAY, IF PATIENTS SACRAL BLISTER OPENS UP START USING HYDROGEL WITH FOAM BORDER DRESSING. ORDER CHANGED.
[2021-10-29] MEDS: POTASSIUM CHLORIDE 20 MEQ POWDER PACKET GT SCH ×3 (10:47→14:58)
[2021-10-29] MEDS: HYDROGEL DRESSING 90 GM TUBE TP SCH (11:34)
[2021-10-29] MEDS: IV NS 0.9% 250 ML IV PRN (12:16)
[2021-10-29] MEDS: JEVITY 1.2 CAL 1,000 ML BOTTLE GT PRN (12:16)
[2021-10-29] MEDS: TAMSULOSIN 0.4 MG CAP.SR.24H GT SCH (17:44)
[2021-10-29] MEDS ORDERED: Potassium Chloride 40 MEQ in IV NS 0.9% 1,000 ML IV SCH (18:30)
[2021-10-29 18:47] LABS: OCCULT BLOOD STOOL NEGATIVE (NEGATIVE)
--- NOTE | 2021-10-29 19:22 | NUR ---
END OF SHIFT NOTE: PER DR BUCIO NO BLOOD GIVEN TODAY D/T LAST H/H 7.0/ WITH NO ACTIVE BLEEDING. STOOL FOR OCCULT WAS NEGATIVE. 2 LARGE BM'S THIS SHIFT. 40 MEQ IV POTASSIUM AND 60MEQ GT GIVEN PER MD ORDERS. RECHECK AT 1900 WAS 3[address] ORDER FROM DR CHO TO START NS W/40MEQ KCL AT 75ML/HR IF LESS THAN 3.5, ENDORSED TO JENNIFER RN, SCREEN PRINTING MACHINE OPERATOR HELPER RN. PT CHECKED ON HOURLY AND PRN BY NURSING STAFF.
--- NOTE | 2021-10-29 19:30 | NUR ---
RN NOTES RECEIVED PT FOR CONTINUITY OF CARE. PATIENT A/OX0 IN NO S/SX OF ACUTE DISTRESS AT THIS TIME; CURRENTLY ON MECHANICAL VENT; SETTING PRESCRIBED, WITH 02 SAT >95% AT THIS TIME. WITH DOMINGO CATH IN PLACE, SMALL URINE OUTPUT NOTED (<100CC) AT THIS TIME.WILL ENSURE SAFETY MEASURES WITHIN THE SHIFT. PATIENT BED ALARM IS ON. HEAD OF BED ELEVATED. BED IS LOCKED, IN LOWEST POSITION AND SIDE RAILS UP. CALL LIGHT WITHIN REACH OF THE PATIENT. APPLICABLE ISOLATION PRECAUTIONS IN PLACE. WILL CONTINUE TO MONITOR AND REASSESS FOR ANY CHANGES AND WILL CARRY OUT ANY ONGOING AND ACTIVE MD ORDER.
[2021-10-29] MEDS: QUETIAPINE FUMARATE 25 MG TABLET PO SCH (21:12)
[2021-10-30] VITALS (39 sets, daily range): BP systolic 93–126; BP diastolic 63–85
[2021-10-30] MEDS: CEFEPIME 2 GM in IV D5W 100 ML IV SCH ×3 (05:02→20:37)
[2021-10-30] MEDS: HYDROCORTISONE SOD SUCCINATE 100 MG/2 ML VIAL IV SCH ×3 (05:02→21:29)
[2021-10-30] MEDS: BLOOD SUGAR DIAGNOSTIC 1 EACH STRIP IN SCH ×3 (05:12→18:09)
[2021-10-30] MEDS: INSULIN REGULAR, HUMAN 100 UNIT/ML 3 ML VIAL SQ PRN (05:13)
[2021-10-30 05:28] LABS: BILIRUBIN,TOTAL 0.6 mg/dL (0.2-1.0); CALCIUM, SERUM 6.9 mg/dL (8.5-10.1); CREATININE 0.3 mg/dL (0.6-1.3); POTASSIUM 5.2 mmol/L (3.5-5.1); TOTAL PROTEIN, SERUM 4.5 g/dL (6.4-8.2)
[2021-10-30 05:29] LABS: BASOPHILS % (AUTO) 0.1 % (0.0-2.0); HEMATOCRIT 22 % (39-51); HEMOGLOBIN 7.3 g/dL (13.5-17.5); LYMPHOCYTES % (AUTO) 15.9 % (20.0-44.0); MEAN CORPUSCULAR HGB CONC 33 g/dl (31.0-36.0); MEAN CORPUSCULAR VOLUME 95 fL (80-96); MONOCYTES # (AUTO) 0.4 K/uL (0.1-1.30); MONOCYTES % (AUTO) 5.8 % (2.0-12.0); NEUTROPHILS # (AUTO) 4.9 K/uL (1.8-8.9); NEUTROPHILS % (AUTO) 78.2 % (43.0-81.0); PLATELET COUNT (AUTO) 241 K/uL (150-450); RED BLOOD CELL COUNT(AUTO) 2.33 MIL/uL (4.5-6.0); WHITE BLOOD COUNT (AUTO) 6.3 K/uL (4.3-11.0)
[2021-10-30 05:31] LABS: MAGNESIUM 1.8 mg/dL (1.8-2.4); PHOSPHORUS 2.4 mg/dL (2.5-4.9)
[2021-10-30 05:46] LABS: ALBUMIN 1.2 g/dL (3.4-5.0)
--- NOTE | 2021-10-30 06:05 | NUR ---
RN NOTES CRITICAL LAB RECEIVED: ALBUMIN: 1.2. NOTIFIED ONCAL MD (FILOMENA SCHAEFER) NO FURTHER ORDER AT THIS TIME. CERAMIC ENGINEER MADE AWARE.
--- NOTE | 2021-10-30 06:15 | NUR ---
RN NOTES K LEVEL FOR THE AM LABS CAME OUT 5.2, PT HAS RUNNING IVF OF NS +40MEQ KCL ( PER MD ORDER RUN IVF IF K LEVEL < OR =3.5). AT 0600AM IVF ENDED AND NOTIFIED FLASH ABARCA (OLIVE,DIE FITTER), MD ACKNOWLEDGED. ORDER GIVEN TO START IVF OF 1L NS @75CC/HR PRN CONTINUOUS. TIE CARRIER MADE AWARE. WILL CARRY OUT ORDER.
--- NOTE | 2021-10-30 06:59 | NUR ---
RN CLOSING NOTE: PATIENT REMAINS IN ROOM IN NO SIGNS OF RESPIRATORY DISTRESS, PATIENT STILL ON MECH VENT; SETTINGS PRESCRIBED;TOLERATING WELL SATURATING @ >95% SP02. SAFETY MEASURES IMPLEMENTED, BED IN LOWEST POSITION, LOCKED, SIDE RAILS UP, CALL LIGHT WITHIN REACH. ALL NEEDS AND ORDERS ADDRESSED DURING THE SHIFT. IV ACCESS MAINTAINED INTACT, SECURED AND FLUSHING WELL.WITH IV FLUID RUNNING ORDERED. ALL DUE MEDS GIVEN ORDERED & SCHEDULED ; PATIENT TOLERATED WELL. STILL WITH ON GOING TUBE FEEDING PRESCRIBED; TOLERATED WELL. PATIENT KEPT CLEAN AND COMFORTABLE WITHIN THE SHIFT. PATIENT ENDORSED TO INCOMING SHIFT RN WITH STABLE VITAL SIGN AND FOR CONTINUITY OF CARE.
[2021-10-30] MEDS ORDERED: IV NS 0.9% 1,000 ML IV PRN (07:00)
[2021-10-30] MEDS: ASPIRIN 81 MG TAB.CHEW GT SCH (09:15)
[2021-10-30] MEDS: METHIMAZOLE (5MG) 5 MG TABLET GT SCH ×2 (09:15→18:08)
[2021-10-30] MEDS: SIMETHICONE 80 MG TAB.CHEW GT SCH ×2 (09:16→21:29)
[2021-10-30] MEDS: RIVAROXABAN 15 MG TABLET GT SCH ×2 (09:16→18:09)
[2021-10-30] MEDS: DIVALPROEX SODIUM 125 MG CAP.SPRINK GT SCH ×3 (09:17→18:08)
[2021-10-30] MEDS: ACIDOPHILUS/BULGARICUS 1 EACH TAB.CHEW GT SCH (09:17)
[2021-10-30] MEDS: HYDROGEL DRESSING 90 GM TUBE TP SCH (09:18)
[2021-10-30] MEDS: Z GUARD REMEDY 4 OZ OINT TP SCH (09:18)
[2021-10-30] MEDS ORDERED: Sodium Phosphate 15 MMOL in IV NS 0.9% 245 ML IV SCH (10:00)
[2021-10-30] MEDS: TAMSULOSIN 0.4 MG CAP.SR.24H GT SCH (18:08)
[2021-10-30] MEDS: IV NS 0.9% 250 ML IV PRN (18:09)
[2021-10-30] MEDS: JEVITY 1.2 CAL 1,000 ML BOTTLE GT PRN (18:09)
--- NOTE | 2021-10-30 18:58 | NUR ---
END OF SHIFT NOTE: NO SIGNIFICANT EVENTS THIS SHIFT. NO BM THIS SHIFT. TELEPHONE REPORT GIVEN TO ZACH TILLMAN FOR PT TRANSFER TO ROOM 308-1
--- NOTE | 2021-10-30 19:30 | NUR ---
TELE GROUT SEWER LINE REPAIRER NOTES RECEIVED TRANSFER BY BED VIA ACLS PROTOCOL FROM ICU,A.O X0,OPEN EYES,NO VERBAL.ON TRACH TO VENT AC-14,TV-400,FIO2-40%,NO PEEP, BEATRIZ #6 TOLERATED WELL.WITH GT FEEDING OF JEVITY 1.2% IN PROGRESS AT 45ML/HR RATE 24 HOURS,GT FLUSHED DONE WITH H2O,NO RESIDULA VOLUME NOTED.HOB ELEVATED FOR ASPIRATION PRECAUTION.WITH DOMINGO CATH IN PLACE DRAINING YELLOWISH OUTPUT.NOTED RIGHT UPPER PICC LINE,BOTH ARMS EDEMATOUS PROMINENT ON THE RIGHT,ELEVATED ON PILLOWS.ON KCI MATTRESS FOR SKIN MANAGEMENT.SACRAL WOUND DRESSING INTACT AND DRY..WILL CONTINUE TO MONITOR STATUS.
--- NOTE | 2021-10-30 19:37 | NUR ---
RT NOTE PT TRANSFERRED TO ROOM 308-1 W NO COMPLICATIONS. VENT IS PLUGGED INTO RED OUTLETS. BMV @ HOB. ALARMS SET AND AUDIBLE. NO RESP DISTRESS NOTED @ THIS TIME. Addendum: 10/30/21 at 2006 by OFELIA SHARPE RT Amended: Links added.
[2021-10-30] MEDS: QUETIAPINE FUMARATE 25 MG TABLET PO SCH (21:30)
[2021-10-31] VITALS: BP 122/74
[2021-10-31] MEDS: BLOOD SUGAR DIAGNOSTIC 1 EACH STRIP IN SCH ×4 (00:08→17:24)
[2021-10-31 04:00] VITALS: BP 112/73
[2021-10-31] MEDS: CEFEPIME 2 GM in IV D5W 100 ML IV SCH ×2 (04:45→12:24)
[2021-10-31] MEDS: HYDROCORTISONE SOD SUCCINATE 100 MG/2 ML VIAL IV SCH ×3 (05:03→21:04)
--- NOTE | 2021-10-31 05:30 | NUR ---
[employer] FACTORY WORKER NOTES ACCU-CHECK BLOOD SUGAR CHECK 128 NO INSULIN COVERAGE..GT FEEDING IN PROGRESS
[2021-10-31 06:10] LABS: BASOPHILS % (AUTO) 0.1 % (0.0-2.0); HEMATOCRIT 25 % (39-51); HEMOGLOBIN 7.9 g/dL (13.5-17.5); LYMPHOCYTES % (AUTO) 15.3 % (20.0-44.0); MEAN CORPUSCULAR HGB CONC 32 g/dl (31.0-36.0); MEAN CORPUSCULAR VOLUME 96 fL (80-96); MONOCYTES # (AUTO) 0.4 K/uL (0.1-1.30); MONOCYTES % (AUTO) 6.4 % (2.0-12.0); NEUTROPHILS # (AUTO) 5.3 K/uL (1.8-8.9); NEUTROPHILS % (AUTO) 78.2 % (43.0-81.0); PLATELET COUNT (AUTO) 291 K/uL (150-450); RED BLOOD CELL COUNT(AUTO) 2.57 MIL/uL (4.5-6.0); WHITE BLOOD COUNT (AUTO) 6.8 K/uL (4.3-11.0)
--- NOTE | 2021-10-31 06:48 | NUR ---
HAY STACKER NOTES NO SIGNIFICANT CHANGE IN STATUS,A/O XO,NON VERBAL,OPEN EYES,DOMINGO CATH REMAINS PATENT,IN NO ACUTE DISTRESS.
[2021-10-31 07:17] LABS: CALCIUM, SERUM 7.5 mg/dL (8.5-10.1); CREATININE 0.3 mg/dL (0.6-1.3); MAGNESIUM 1.9 mg/dL (1.8-2.4); PHOSPHORUS 2.5 mg/dL (2.5-4.9); POTASSIUM 3.3 mmol/L (3.5-5.1)
--- NOTE | 2021-10-31 07:30 | NUR ---
RN OPENING NOTES RECEIVED PATIENT IN BED, A/O X0, OPENS EYES. ON TRACH TO VENT: AC 14, TV 400, FIO2 40%, PEEP 0, SHILEY #6. ON TELE MONITOR WITH CURRENT READING OF SINUS RHYTHM, HR @ 95. G-TUBE INPLACE, WITH TUBE FEEDING OF JEVITY 1.2 @45 ML/HR, TOLERATING WELL. NOTED WITH RIGHT UPPER ARM PICC LINE INTACT, NOTED RIGHT ARM EDEMATOUS. ELEVATED WITH PILLOWS. F/C INTACT, DRAINING YELLOW CLEAR URINE. SAFETY MEASURE MAINTAINED. BED IN LOWEST AND LOCKED POSITION, SIDE RAILS UP, CALL LIGHT PLACED WITHIN EASY REACH. WILL CONTINUE TO MONITOR PATIENT.
[2021-10-31 08:00] VITALS: BP 142/84
[2021-10-31] MEDS: SIMETHICONE 80 MG TAB.CHEW GT SCH ×2 (08:43→21:05)
[2021-10-31] MEDS: DIVALPROEX SODIUM 125 MG CAP.SPRINK GT SCH ×3 (08:43→16:20)
[2021-10-31] MEDS: ASPIRIN 81 MG TAB.CHEW GT SCH (08:43)
[2021-10-31] MEDS: ACIDOPHILUS/BULGARICUS 1 EACH TAB.CHEW GT SCH (08:43)
[2021-10-31] MEDS: METHIMAZOLE (5MG) 5 MG TABLET GT SCH ×2 (08:43→16:20)
[2021-10-31] MEDS: RIVAROXABAN 15 MG TABLET GT SCH ×2 (08:45→16:20)
[2021-10-31] MEDS: HYDROGEL DRESSING 90 GM TUBE TP SCH (08:52)
[2021-10-31] MEDS: Z GUARD REMEDY 4 OZ OINT TP SCH (08:53)
--- NOTE | 2021-10-31 09:15 | NUR ---
RT NOTE, PER DR. ALTMAN VERBAL ORDER TO ADD PEEP +5 TO VENT SETTINGS, VENT CHANGES DONE. RN NOTIFIED. Addendum: 10/31/21 at 1325 by PA ANAND RT Amended: Links added.
[2021-10-31 12:00] VITALS: BP 137/94
[2021-10-31] MEDS ORDERED: POTASSIUM CHLORIDE 20 MEQ POWDER PACKET NG SCH (12:00)
[2021-10-31] MEDS: INSULIN REGULAR, HUMAN 100 UNIT/ML 3 ML VIAL SQ PRN ×2 (13:11→17:24)
[2021-10-31 16:00] VITALS: BP 122/77
--- NOTE | 2021-10-31 17:00 | NUR ---
RN NOTES PATIENT HAD EPISODES OF PAROXYSMAL SUPRAVENTRICULAR TACHYCARDIA, STAT EKG DONE AND NOTED WITH ATRIAL FIBRILLATION. DR. PAIZ MADE AWARE. AWAITING FOR ANY ORDERS.
[2021-10-31] MEDS: TAMSULOSIN 0.4 MG CAP.SR.24H GT SCH (17:17)
--- NOTE | 2021-10-31 18:56 | NUR ---
RN NOTES DR. AYALA MADE AWARE REGARDING PATIENTS EPISODES OF PSVT AND AFIB. WITH NEW ORDER FOR AMIO DRIP PER PROTOCOL. PATIENT WILL BE TRANSFERRED TO ROOM 109. ORDER CARRIED OUT.
[2021-10-31] MEDS ORDERED: AMIODARONE 450 MG in IV D5W 241 ML IV PRN (19:00)
[2021-10-31] MEDS ORDERED: AMIODARONE 150 MG in IV D5W 100 ML IV ONE (19:00)
--- NOTE | 2021-10-31 19:00 | NUR ---
RN NOTES REPORT GIVEN TO LAYNE MARES FROM [facility].
--- NOTE | 2021-10-31 19:25 | NUR ---
RECEIVED PATIENT FROM 3W FLOOR VIA BED ACCOMPANIED BY 3NURSE AND RT, PATIENT IN MECHANICAL VENTILATOR, TRANSFERRED TO START AMIODARONE DRIP FOR AFIB, HR AT THIS TIME IN 90S VITAL SIGNS 164/80, 97.6, 93, 22, 100%, NO SOB/ACUTE DISTRESS NOTED, PATIENT UNABLE TO COMMUNICATE WITH OPEN EYES, THAT IS THE BASELINE OF PATIENT, TRANSFERRED FROM ICU LAST NIGHT TO 3W, PATIENT WITH THOMAS PICC LINE IN PLACE PATENT AND INTACT, GT IN PLACED, WITH JEVITY 1.2 INFUSING ORDERED, F/C IN PLACE DRAINING YELLOW URINE BY GRAVITY, WILL CONTINUE TO CONT TO [id number] AND ADMINISTER AMIODARONE SOON PHARMACY DELIVER.
--- NOTE | 2021-10-31 19:55 | NUR ---
amiodarone load administered at this time, bp 124/91, 93.
[2021-10-31 20:00] VITALS: BP 164/80
[2021-10-31] MEDS: AMIODARONE 450 MG in IV D5W 241 ML IV PRN ×2 (20:13→20:14)
[2021-10-31] MEDS: QUETIAPINE FUMARATE 25 MG TABLET PO SCH (21:05)
--- NOTE | 2021-10-31 23:46 | NUR ---
PATIENT CONVERTED TO NORMAL SINUS RHYTHM AT THIS TIME, WILL CONTINUE TO MONITOR CLOSELY.
[2021-11-01] VITALS: BP 117/82
[2021-11-01] MEDS: BLOOD SUGAR DIAGNOSTIC 1 EACH STRIP IN SCH ×4 (00:21→16:56)
[2021-11-01] MEDS: INSULIN REGULAR, HUMAN 100 UNIT/ML 3 ML VIAL SQ PRN ×4 (00:21→17:04)
--- NOTE | 2021-11-01 00:22 | NUR ---
blood sugar level at this time 112mg/dl, no insulin administered per sliding scale.
[2021-11-01] MEDS: JEVITY 1.2 CAL 1,000 ML BOTTLE GT SCH (02:12)
[2021-11-01] MEDS: AMIODARONE 450 MG in IV D5W 241 ML IV PRN (03:58)
[2021-11-01 04:00] VITALS: BP 150/90
[2021-11-01] MEDS: HYDROCORTISONE SOD SUCCINATE 100 MG/2 ML VIAL IV SCH ×3 (05:07→21:52)
--- NOTE | 2021-11-01 07:00 | NUR ---
RN CLOSING NOTES, PATIENT CONTINUE ON MECHANICAL VENTILATOR, NO SOB/ACUTE DISTRESS NOTED DURING THE NIGHT, AT 2013 TONIGHT, PATIENT CONVERTED TO NORMAL SINUS AT 2346, AND AT THIS TIME ON AND OFF SINUS/AFIB WITH PVCS WITH HR 80-90S, THOMAS PICC LINE IN PLACE PATENT AND INTACT, GT IN PLACED, WITH JEVITY 1.2 INFUSING ORDERED, F/C IN PLACE DRAINING YELLOW URINE BY GRAVITY, BED LOCKED AND LOWEST POSITION, S/R OF BED UPX3, WILL ENDORSE CONTINUITY OF CARE TO ONCOMING NURSE.
[2021-11-01 07:30] LABS: CALCIUM, SERUM 7.2 mg/dL (8.5-10.1); CREATININE 0.3 mg/dL (0.6-1.3); POTASSIUM 3.3 mmol/L (3.5-5.1)
[2021-11-01 08:00] VITALS: BP 132/90
--- NOTE | 2021-11-01 08:04 | NUR ---
ANDREA RN NOTE PATINT IN BED WITH TRACH TO VENT SETTING ORDERED , PN TELE MONITOR AFIB HR 93 , WITH G TUBE FEEDING ORDERED KEEP HOB ELEVATED AT ALL TIME, KEEP HOB ELEVATED AT ALL TIME, NO RESIDUAL NOTED , RT UPPER ARM PICC LINE IN PLACE ON AMIODARONE DRIP ORDERED BED IN LOWEST AND LOCKED POSITION , CALL LIGHT WITHIN REACH
[2021-11-01] MEDS: DIVALPROEX SODIUM 125 MG CAP.SPRINK GT SCH ×3 (08:58→16:24)
[2021-11-01] MEDS: METHIMAZOLE (5MG) 5 MG TABLET GT SCH ×2 (08:58→16:25)
[2021-11-01] MEDS: ACIDOPHILUS/BULGARICUS 1 EACH TAB.CHEW GT SCH (08:58)
[2021-11-01] MEDS: ASPIRIN 81 MG TAB.CHEW GT SCH (08:58)
[2021-11-01] MEDS: RIVAROXABAN 15 MG TABLET GT SCH ×2 (08:59→16:24)
[2021-11-01] MEDS: SIMETHICONE 80 MG TAB.CHEW GT SCH ×2 (08:59→21:52)
[2021-11-01] MEDS: HYDROGEL DRESSING 90 GM TUBE TP SCH (09:01)
[2021-11-01] MEDS: Z GUARD REMEDY 4 OZ OINT TP SCH (09:02)
--- NOTE | 2021-11-01 10:21 | NUR ---
STUDENT AFFAIRS VICE PRESIDENT NOTE MOUTH CARE DONE ALL NEEDS ATTENDED , TRACH SUCTION DONE
[2021-11-01 12:00] VITALS: BP 113/84
[2021-11-01] MEDS ORDERED: POTASSIUM CHLORIDE 20 MEQ POWDER PACKET NG SCH (12:00)
--- NOTE | 2021-11-01 12:30 | NUR ---
telephone answering service operator note turn reposing, trach care done ,made bm ,keep clean dry
--- NOTE | 2021-11-01 15:00 | NUR ---
WATER RESOURCES ENGINEER NOTE ROUNDS MADE , ALL NEEDS ATTENDED, KEEP HOB ELEVATED TURN REPOSITION ,WILL CONT TO MONITOR
[2021-11-01 16:00] VITALS: BP 122/95
[2021-11-01] MEDS: TAMSULOSIN 0.4 MG CAP.SR.24H GT SCH (17:03)
--- NOTE | 2021-11-01 17:10 | NUR ---
COM WRITER NOTE CONT ON G TUBE FEEDING, NO RESIDUAL NOTED, NO SOB NOTED , WITH DOMINGO CATH TO GRAVITY , WITH TRACH TO VENT SETTING ORDERED, WILL CONT TO MONITOR
--- NOTE | 2021-11-01 18:26 | NUR ---
telegrapher agent note patient in bed ,obtunded ,with tach to vent setting as ordered , with g tube feeding as ordered , keep hob elevated at all time, with Dior cath to gravity with yellow mahendra color , bed in lowest and locked position , reach care done, will cont to monitor closely
--- NOTE | 2021-11-01 19:30 | NUR ---
RN NOTE PT WITH TRACH CONNECTED TO VENT. NOT IN ANY DISTRESS. TOLERATING SETTINGS WITH O2 SAT AT 100%. NO SIGNS OF PAIN OR DISCOMFORT. TELE MONITOR SHOWS SR WITH HR OF 74, ON AMIO DRIP, WILL JUST FINISHED THE REMAINING DOSE IN BAG. GT IN PLACE ANG PATENT, NO RESIDUALS WERE NOTED. FLUSHED WITH WATER. ON GT FEEDING OF JEVITY AT 60ML.HR. KEPT HOB ELEVATED. DOMINGO DRAINING CLEAR YELLOW URINE. WILL CONTINUE TO MONITOR.
[2021-11-01 20:00] VITALS: BP 124/82
[2021-11-01] MEDS: QUETIAPINE FUMARATE 25 MG TABLET PO SCH (21:52)
[2021-11-02] VITALS: BP 101/70
[2021-11-02] MEDS: BLOOD SUGAR DIAGNOSTIC 1 EACH STRIP IN SCH ×4 (00:06→17:22)
[2021-11-02] MEDS: JEVITY 1.2 CAL 1,000 ML BOTTLE GT SCH ×2 (00:27→17:33)
[2021-11-02 04:00] VITALS: BP 132/96
[2021-11-02] MEDS: HYDROCORTISONE SOD SUCCINATE 100 MG/2 ML VIAL IV SCH ×3 (05:06→21:08)
[2021-11-02 06:26] LABS: BASOPHILS % (AUTO) 0.1 % (0.0-2.0); HEMATOCRIT 25 % (39-51); HEMOGLOBIN 8.3 g/dL (13.5-17.5); LYMPHOCYTES # (AUTO) 0.9 K/uL (0.8-4.8); LYMPHOCYTES % (AUTO) 12.8 % (20.0-44.0); MEAN CORPUSCULAR HGB CONC 33 g/dl (31.0-36.0); MEAN CORPUSCULAR VOLUME 95 fL (80-96); MONOCYTES # (AUTO) 0.4 K/uL (0.1-1.30); MONOCYTES % (AUTO) 5.3 % (2.0-12.0); NEUTROPHILS # (AUTO) 5.6 K/uL (1.8-8.9); NEUTROPHILS % (AUTO) 81.8 % (43.0-81.0); PLATELET COUNT (AUTO) 386 K/uL (150-450); RED BLOOD CELL COUNT(AUTO) 2.65 MIL/uL (4.5-6.0); WHITE BLOOD COUNT (AUTO) 6.8 K/uL (4.3-11.0)
--- NOTE | 2021-11-02 06:54 | NUR ---
RN NOTE PT TOLERATING VENT SETTINGS, WITH NO S/SX OF RESP DISTRESS. O2 SAT AT 100%. CONTINUE WITH GT FEEDING, TOLERATED. NO RESIDUALS. HOB REMAIN ELEVATED. LATEST FSBS 127, NO INSULIN COVERAGE. PT REMAIN AFEBRILE. WOUND TX WERE DONE ORDERED. TURNED AND REPOSITIONED. WILL ENDORSE TO NEXT SHIFT NURSE FOR ILIANA.
[2021-11-02 07:20] LABS: CALCIUM, SERUM 7.7 mg/dL (8.5-10.1); CREATININE 0.3 mg/dL (0.6-1.3); PHOSPHORUS 2.3 mg/dL (2.5-4.9); POTASSIUM 3.6 mmol/L (3.5-5.1)
--- NOTE | 2021-11-02 07:25 | NUR ---
RN OPENING NOTES RECEIVED PATIENT IN BED, A/O X0, OPENS EYES. ON TRACH TO VENT: AC 14, TV 400, FIO2 40%, PEEP 0, SHILEY #6. REMAINS ON TELE MONITOR. G-TUBE IN PLACE, WITH TUBE FEEDING OF JEVITY 1.2 AT 60 ML/HR, TOLERATING WELL. NOTED WITH RIGHT UPPER ARM PICC LINE INTACT. F/C INTACT, DRAINING YELLOW CLEAR URINE. SAFETY MEASURE MAINTAINED. BED IN LOWEST AND LOCKED POSITION, SIDE RAILS UP, CALL LIGHT PLACED WITHIN EASY REACH. WILL CONTINUE TO MONITOR PATIENT.
[2021-11-02 08:00] VITALS: BP 130/84
[2021-11-02] MEDS: SIMETHICONE 80 MG TAB.CHEW GT SCH ×2 (08:24→21:08)
[2021-11-02] MEDS: METHIMAZOLE (5MG) 5 MG TABLET GT SCH ×2 (08:24→16:45)
[2021-11-02] MEDS: ACIDOPHILUS/BULGARICUS 1 EACH TAB.CHEW GT SCH (08:24)
[2021-11-02] MEDS: ASPIRIN 81 MG TAB.CHEW GT SCH (08:24)
[2021-11-02] MEDS: DIVALPROEX SODIUM 125 MG CAP.SPRINK GT SCH ×3 (08:24→16:45)
[2021-11-02] MEDS: RIVAROXABAN 15 MG TABLET GT SCH ×2 (08:25→16:45)
[2021-11-02] MEDS: Z GUARD REMEDY 4 OZ OINT TP SCH (08:26)
[2021-11-02] MEDS: HYDROGEL DRESSING 90 GM TUBE TP SCH (08:27)
[2021-11-02] MEDS: INSULIN REGULAR, HUMAN 100 UNIT/ML 3 ML VIAL SQ PRN ×2 (11:26→17:23)
[2021-11-02 12:00] VITALS: BP 126/81
[2021-11-02 16:00] VITALS: BP 142/90
[2021-11-02] MEDS ORDERED: NEUTRA PHOS 1 POWD.PACKET GT ONE (16:00)
[2021-11-02] MEDS: TAMSULOSIN 0.4 MG CAP.SR.24H GT SCH (17:03)
--- NOTE | 2021-11-02 18:42 | NUR ---
RN CLOSING NOTES PATIENT IN BED, A/O X0, OPENS EYES. REMAINS ON TRACH TO VENT: AC 14, TV 400, FIO2 40%, PEEP 5, SHILEY #6. REMAINS ON TELE MONITOR, CURRENTLY SHOWING SINUS RHYTHM , HR @ 94. G-TUBE IN PLACE, WITH TUBE FEEDING OF JEVITY 1.2 AT 60 ML/HR, TOLERATING WELL. ASPIRATION PRECAUTIONS OBSERVED AT ALL TIMES. RIGHT UPPER ARM PICC LINE INTACT AND PATENT, ON TKO. F/C INTACT, DRAINING YELLOW CLEAR URINE, HAD X1 BOWEL MOVEMENT. WOUND CARE PROVIDED. SAFETY MEASURE MAINTAINED. BED IN LOWEST AND LOCKED POSITION, SIDE RAILS UP, CALL LIGHT PLACED WITHIN EASY REACH. WILL ENDORSE TO NEXT SHIFT FOR CONTINUITY OF CARE.
--- NOTE | 2021-11-02 19:07 | NUR ---
RN OPENING NOTES RECEIVED PATIENT ON BED, OBTUNDED, OPEN EYES. ON MECHANICAL VENTILATOR, SETTINGS TOLERATED WELL, RESPIRATORY EVEN AND UNLABORED, NO SOB NOTED, NOT IN ACUTE DISTRESS. REMAIN AFEBRILE. NOTED WITH THOMAS PICC LINE, PATENT, INTACT. FLUSHED WITH NS, NO S/S OF INFILTRATION NOTED AT SITE. WITH PEG TUBE, PATENT INTACT, NO HYPERGRANULATION NOTED AT SITE. VERIFIED PLACEMENT BY AUSCULTATION, NO RESIDUAL NOTED UPON ASPIRATION, RUNNING WITH JEVITY 1.2 @ 60 ML/HR. ON DOMINGO CATHETER PATENT, INTACT DRAINING WITH CLEAR YELLOW URINE VIA GRAVITY. ALL SAFE MEASURE PROVIDED. BED IN LOWEST POSITION, LOCKED. BED ALARM ARMED. CALL LIGHT WITH IN REACH. CONTINUE TO MONITOR.
[2021-11-02 20:00] VITALS: BP 137/81
[2021-11-02] MEDS: QUETIAPINE FUMARATE 25 MG TABLET PO SCH (21:08)
[2021-11-03] VITALS: BP 112/79
[2021-11-03] MEDS: INSULIN REGULAR, HUMAN 100 UNIT/ML 3 ML VIAL SQ PRN ×3 (00:07→17:31)
[2021-11-03] MEDS: BLOOD SUGAR DIAGNOSTIC 1 EACH STRIP IN SCH ×4 (00:07→17:26)
--- NOTE | 2021-11-03 00:08 | NUR ---
RN NOTES BLOOD SUGAR 122/mg/dL, NO INSULIN COVERAGE PER SLIDING SCALE
--- NOTE | 2021-11-03 01:52 | NUR ---
RT PT [facility] WITH A SHILEY 6 COVIDEN CUFFED TRACH. TRACH IS PATENT AND SECURED. SUCTION DONE PRN, TRACH CARE DONE. VENT IS PLUGGED INTO RED OUTLET WITH ALARMS ON AUDIBLE. AMBU BAG AND SPARE TRACH AT BEDSIDE. NO SOB OR RESPIRATORY DISTRESS NOTED. SPO2 ABOVE 92% MAINTAINED.
[2021-11-03 04:00] VITALS: BP 139/90
[2021-11-03] MEDS: HYDROCORTISONE SOD SUCCINATE 100 MG/2 ML VIAL IV SCH ×3 (04:37→21:08)
--- NOTE | 2021-11-03 06:19 | NUR ---
RN NOTES BLOOD SUGAR 122/mg/dL, NO INSULIN COVERAGE PER SLIDING SCALE
[2021-11-03 06:29] LABS: CALCIUM, SERUM 7.6 mg/dL (8.5-10.1); CREATININE 0.3 mg/dL (0.6-1.3); MAGNESIUM 1.9 mg/dL (1.8-2.4); PHOSPHORUS 2.5 mg/dL (2.5-4.9); POTASSIUM 3.5 mmol/L (3.5-5.1)
[2021-11-03 06:50] LABS: BASOPHILS % (AUTO) 0.1 % (0.0-2.0); HEMATOCRIT 24 % (39-51); HEMOGLOBIN 8.1 g/dL (13.5-17.5); LYMPHOCYTES # (AUTO) 0.9 K/uL (0.8-4.8); MEAN CORPUSCULAR HGB CONC 33 g/dl (31.0-36.0); MEAN CORPUSCULAR VOLUME 96 fL (80-96); MONOCYTES # (AUTO) 0.4 K/uL (0.1-1.30); MONOCYTES % (AUTO) 6.2 % (2.0-12.0); NEUTROPHILS # (AUTO) 4.9 K/uL (1.8-8.9); NEUTROPHILS % (AUTO) 79.7 % (43.0-81.0); PLATELET COUNT (AUTO) 331 K/uL (150-450); RED BLOOD CELL COUNT(AUTO) 2.52 MIL/uL (4.5-6.0); WHITE BLOOD COUNT (AUTO) 6.2 K/uL (4.3-11.0)
--- NOTE | 2021-11-03 06:55 | NUR ---
RN NOTES PATIENT REMAIN STABLE THROUGH OUT THE SHIFT. RESPIRATORY EVEN AND UNLABORED, NO SOB NOTED, NOT IN ACUTE DISTRESS. REMAIN AFEBRILE. WITH PEG TUBE, PATENT INTACT, NO HYPERGRANULATION NOTED AT SITE. VERIFIED PLACEMENT BY AUSCULTATION, NO RESIDUAL NOTED UPON ASPIRATION, RUNNING WITH JEVITY 1.2 @ 60 ML/HR. HEAD OF BED KEPT ELEVATED. ON DOMINGO CATHETER PATENT, INTACT DRAINING WITH CLEAR YELLOW URINE VIA GRAVITY. ALL DUE MEDS GIVEN ORDERED. ALL SAFE MEASURE PROVIDED. BED IN LOWEST POSITION, LOCKED. BED ALARM ARMED. CALL LIGHT WITH IN REACH. CONTINUE TO MONITOR.
--- NOTE | 2021-11-03 07:56 | NUR ---
BRINE TANK TENDER NOTE PATIENT IN BED OBTUNDED, WITH TRACH TO VENT SETTING ORDERED, ,ON TELE MONITOR WITH ST WITH PVC HR 86,JEVITY G TUBE FEEDING ORDERED KEEP HOB ELEVATED AT ALL TIME, RT UPPER ARM MIDLINE IN PLACE , WITH DOMINGO CATH TO GRAVITY IN PLACE , WITH YELLOW COLOR URINE,BED IN LOWEST AND LOCKED POSITION, CALL LIGHT WITH REACH, WILL MONITOR
[2021-11-03 08:00] VITALS: BP 145/85
[2021-11-03] MEDS: SIMETHICONE 80 MG TAB.CHEW GT SCH ×2 (09:13→21:08)
[2021-11-03] MEDS: ACIDOPHILUS/BULGARICUS 1 EACH TAB.CHEW GT SCH (09:13)
[2021-11-03] MEDS: METHIMAZOLE (5MG) 5 MG TABLET GT SCH ×2 (09:13→16:38)
[2021-11-03] MEDS: ASPIRIN 81 MG TAB.CHEW GT SCH (09:13)
[2021-11-03] MEDS: DIVALPROEX SODIUM 125 MG CAP.SPRINK GT SCH ×3 (09:13→16:38)
[2021-11-03] MEDS: RIVAROXABAN 15 MG TABLET GT SCH ×2 (09:14→16:39)
[2021-11-03] MEDS: HYDROGEL DRESSING 90 GM TUBE TP SCH (09:15)
[2021-11-03] MEDS: Z GUARD REMEDY 4 OZ OINT TP SCH (09:16)
[2021-11-03] MEDS: JEVITY 1.2 CAL 1,000 ML BOTTLE GT SCH (09:25)
[2021-11-03 12:00] VITALS: BP 141/74
--- NOTE | 2021-11-03 12:30 | NUR ---
TAIL DOGGER NOTE RESTING COMFORTABLY , ALL NEEDS ATTENDED, MOUTH CARE KEEP HOB ELEVATED, CONT ON G TUBE FEEDING ORDERED, NOT IN DISTRESS
--- NOTE | 2021-11-03 15:00 | NUR ---
WEBSPHERE ARCHITECT NOTE RONDS MADE, TURN REPOSITION , CALL LIGHT WITHIN REACH DR ALTMAN AT BEDSIDE NO NEW ORDERS GIVE AT THIS TIME
[2021-11-03 16:00] VITALS: BP 129/85
[2021-11-03] MEDS: TAMSULOSIN 0.4 MG CAP.SR.24H GT SCH (17:21)
--- NOTE | 2021-11-03 18:58 | NUR ---
BROOMMAKER NOTE PATIENT IN BED OBTUNDED BOTH EYES OPEN , NO TRACTION WITH EYES ,WITH TRACH TO VENT SETTING ORDERED, ON G TUBE FEEDING ORDERED, KEEP HOB ELEVATED MOUTH CARE DONE, TURN REPOSITION WITH DOMINGO CATH TO GRAVITY, WITH YELLOW URINE NOTED , WILL CONT TO MONITOR
[2021-11-03] MEDS: DAKINS QUARTER STRENGTH (0.125%) 480 ML BOTTLE TOP SCH (19:00)
--- NOTE | 2021-11-03 19:30 | NUR ---
RN OPENING NOTE RECEIVED PATIENT IN BED. EYES OPEN, OBTUNDED. NO S/S OF APPARENT DISTRESS-- VENT DEPENDENT. NOT EXHIBITING PAIN VIA FLACC. TELE MONITOR READING A-FIB CONTROLLED WITH 88 BPM. NO FLUIDS RUNNING AT THIS TIME, THOMAS PICC INTACT. DOMINGO DRAINING SLIGHTLY CLOUDY, YELLOW URINE. G-TUBE RUNNING JEVITY 1.2 @60MLS/HR. SAFETY IN PLACE. WILL CONTINUE WITH PLAN OF CARE FOR PATIENT.
[2021-11-03 20:00] VITALS: BP 125/90
--- NOTE | 2021-11-03 20:20 | NUR ---
RT PT RECVD [facility]KE [facility] WITH A SHILEY 6 COVIDEN CUFFED TRACH. TRACH IS PATENT AND SECURED. SUCTION DONE PRN. VENT IS PLUGGED INTO RED OUTLET WITH ALARMS ON AUDIBLE. AMBU BAG AND SPARE TRACH AT BEDSIDE. NO SOB OR RESPIRATORY DISTRESS NOTED AT THIS TIME.
[2021-11-03] MEDS: QUETIAPINE FUMARATE 25 MG TABLET PO SCH (21:08)
[2021-11-04] VITALS: BP 103/69
[2021-11-04] MEDS: BLOOD SUGAR DIAGNOSTIC 1 EACH STRIP IN SCH ×4 (00:08→17:01)
[2021-11-04] MEDS: INSULIN REGULAR, HUMAN 100 UNIT/ML 3 ML VIAL SQ PRN ×2 (00:09→06:20)
--- NOTE | 2021-11-04 00:09 | NUR ---
RN NOTE BLOOD SUGAR 101. NO COVERAGE NEEDED.
[2021-11-04] MEDS: IV NS 0.9% 250 ML IV PRN (02:58)
[2021-11-04 04:00] VITALS: BP 133/86
[2021-11-04] MEDS: HYDROCORTISONE SOD SUCCINATE 100 MG/2 ML VIAL IV SCH ×3 (05:01→20:23)
--- NOTE | 2021-11-04 06:20 | NUR ---
RN NOTE BLOOD SUGAR 107. NO COVERAGE NEEDED.
--- NOTE | 2021-11-04 06:40 | NUR ---
GREEN CHAIN OPERATOR CLOSING PATIENT IN BED, EYES OPEN. NO S/S OF APPARENT DISTRESS-- VENT DEPENDENT. NOT EXHIBITING PAIN VIA FLACC. TELE MONITOR READING SR THROUGHOUT SHIFT WITH 86 BPM. G-TUBE RUNNING JEVITY 1.2 @60MLS/HR-- TOLERATING WELL. DOMINGO DRAINING SLIGHTLY CLOUDY YELLOW URINE WITH UO OF 700 CC. BM X1. WOUND TREATMENT DONE AND PICTURES TAKEN. NEEDS ATTENDED. ALL SCHEDULED MEDICATIONS ADMINISTERED, WILL ENDORSE TO MORNING SHIFT RN FOR CONTINUITY OF CARE.
[2021-11-04] MEDS: JEVITY 1.2 CAL 1,000 ML BOTTLE GT SCH (06:48)
[2021-11-04 07:19] LABS: BASOPHILS % (AUTO) 0.1 % (0.0-2.0); HEMATOCRIT 25 % (39-51); HEMOGLOBIN 8.1 g/dL (13.5-17.5); LYMPHOCYTES # (AUTO) 0.6 K/uL (0.8-4.8); LYMPHOCYTES % (AUTO) 11.4 % (20.0-44.0); MEAN CORPUSCULAR HGB CONC 33 g/dl (31.0-36.0); MEAN CORPUSCULAR VOLUME 97 fL (80-96); MONOCYTES # (AUTO) 0.3 K/uL (0.1-1.30); NEUTROPHILS # (AUTO) 4.5 K/uL (1.8-8.9); NEUTROPHILS % (AUTO) 83.5 % (43.0-81.0); PLATELET COUNT (AUTO) 354 K/uL (150-450); RED BLOOD CELL COUNT(AUTO) 2.58 MIL/uL (4.5-6.0); WHITE BLOOD COUNT (AUTO) 5.4 K/uL (4.3-11.0)
[2021-11-04 07:38] LABS: CALCIUM, SERUM 7.4 mg/dL (8.5-10.1); CREATININE 0.2 mg/dL (0.6-1.3); MAGNESIUM 1.9 mg/dL (1.8-2.4); PHOSPHORUS 2.6 mg/dL (2.5-4.9); POTASSIUM 3.1 mmol/L (3.5-5.1)
[2021-11-04 08:00] VITALS: BP 136/82
[2021-11-04] MEDS: DIVALPROEX SODIUM 125 MG CAP.SPRINK GT SCH ×3 (09:03→16:54)
[2021-11-04] MEDS: METHIMAZOLE (5MG) 5 MG TABLET GT SCH ×2 (09:03→16:54)
[2021-11-04] MEDS: SIMETHICONE 80 MG TAB.CHEW GT SCH ×2 (09:03→20:23)
[2021-11-04] MEDS: ASPIRIN 81 MG TAB.CHEW GT SCH (09:03)
[2021-11-04] MEDS: ACIDOPHILUS/BULGARICUS 1 EACH TAB.CHEW GT SCH (09:03)
[2021-11-04] MEDS: RIVAROXABAN 15 MG TABLET GT SCH ×2 (09:04→16:56)
[2021-11-04] MEDS: HYDROGEL DRESSING 90 GM TUBE TP SCH (09:12)
[2021-11-04] MEDS: DAKINS QUARTER STRENGTH (0.125%) 480 ML BOTTLE TOP SCH (09:12)
[2021-11-04] MEDS: Z GUARD REMEDY 4 OZ OINT TP SCH (09:13)
[2021-11-04] MEDS ORDERED: POTASSIUM CHLORIDE 20 MEQ POWDER PACKET GT SCH (10:00)
[2021-11-04 12:00] VITALS: BP 124/87
[2021-11-04 16:00] VITALS: BP 129/83
[2021-11-04] MEDS: TAMSULOSIN 0.4 MG CAP.SR.24H GT SCH (17:01)
--- NOTE | 2021-11-04 19:42 | NUR ---
RT PT RECVD [facility]WAKE [facility] WITH A SHILEY 6 COVIDEN CUFFED TRACH. TRACH IS PATENT AND SECURED. SUCTION DONE PRN. VENT IS PLUGGED INTO RED OUTLET WITH ALARMS ON AUDIBLE. AMBU BAG AND SPARE TRACH AT BEDSIDE. NO SOB OR RESPIRATORY DISTRESS NOTED AT THIS TIME.
--- NOTE | 2021-11-04 19:49 | NUR ---
WEB DEVELOPMENT DIRECTOR NOTE PATIENT RESTING IN BED, EYES OPEN. NO S/S OF APPARENT DISTRESS. PT ON VENT, TOLERATING SETTINGS WELL.TELE MONITOR READING SR. G-TUBE RUNNING JEVITY 1.2 @60MLS/HR TOLERATING WELL, ASPIRATION PREC FOLLOWED. DOMINGO CATH DRAINING WELL. ALL SCHEDULED MEDICATIONS ADMINISTERED, AM/PM CARE DONE. SAFETY MEASURES FOLLOWED.
[2021-11-04 20:00] VITALS: BP 117/86
--- NOTE | 2021-11-04 20:00 | NUR ---
RN OPENING NOTE RECEIVED PATIENT IN BED. EYES OPEN, OBTUNDED. V/S STABLE AFEBRILE .NO SOB NO S/S OF APPARENT DISTRESS-- VENT DEPENDENT ORDERED SETTINGS WELL TOLERATED BY PTS. TELE MONITOR READING SR 76 BPM. WITH FREE WATER FLUSH 125CC Q 4HRS ORDERED .NO FLUIDS RUNNING AT THIS TIME, THOMAS PICC INTACT. HOB ELEVATED FOR ASPIRATION PRECAUTION ,TURNED AND REPOSITION Q 2 HRS AND PRN SUCTION SECRETION Q 2HRS AND PRN ,DOMINGO DRAINING YELLOW URINE. G-TUBE RUNNING JEVITY 1.2 @60MLS/HR. NO RESIDUAL NOTED.SAFETY IN PLACE. WILL CONTINUE WITH PLAN OF CARE FOR PATIENT.
[2021-11-04] MEDS: QUETIAPINE FUMARATE 25 MG TABLET PO SCH (21:31)
[2021-11-05] VITALS (7 sets, daily range): BP systolic 119–137; BP diastolic 64–86
[2021-11-05] MEDS: INSULIN REGULAR, HUMAN 100 UNIT/ML 3 ML VIAL SQ PRN ×3 (01:05→23:22)
[2021-11-05] MEDS: BLOOD SUGAR DIAGNOSTIC 1 EACH STRIP IN SCH ×5 (01:06→23:22)
--- NOTE | 2021-11-05 01:13 | NUR ---
television operator notes blood sugar at 0000hrs is 142 mg/dl 2 units of regular insulin given per sliding scale pts on gt feeding will check bs again in am.
--- NOTE | 2021-11-05 06:00 | NUR ---
telecommunication tower technician notes blood sugar at 6am is 111mg/dl no coverage per sliding scale.
[2021-11-05] MEDS: HYDROCORTISONE SOD SUCCINATE 100 MG/2 ML VIAL IV SCH ×3 (06:31→21:08)
[2021-11-05 07:19] LABS: BASOPHILS % (AUTO) 0.1 % (0.0-2.0); HEMATOCRIT 26 % (39-51); HEMOGLOBIN 8.6 g/dL (13.5-17.5); LYMPHOCYTES # (AUTO) 0.9 K/uL (0.8-4.8); LYMPHOCYTES % (AUTO) 18.6 % (20.0-44.0); MEAN CORPUSCULAR HGB CONC 33 g/dl (31.0-36.0); MEAN CORPUSCULAR VOLUME 96 fL (80-96); MONOCYTES # (AUTO) 0.3 K/uL (0.1-1.30); MONOCYTES % (AUTO) 6.1 % (2.0-12.0); NEUTROPHILS # (AUTO) 3.7 K/uL (1.8-8.9); NEUTROPHILS % (AUTO) 75.2 % (43.0-81.0); PLATELET COUNT (AUTO) 344 K/uL (150-450); RED BLOOD CELL COUNT(AUTO) 2.73 MIL/uL (4.5-6.0)
--- NOTE | 2021-11-05 07:24 | NUR ---
director telecommunications notes pts remains in bed on vent settings ordered well tolerated . v/s stable afebrile , all needs meet no clarissa noted the whole shift will endorse to rn day shift Lakshmi for continuity of care.
[2021-11-05 07:28] LABS: CALCIUM, SERUM 7.3 mg/dL (8.5-10.1); CREATININE 0.3 mg/dL (0.6-1.3); PHOSPHORUS 2.9 mg/dL (2.5-4.9); POTASSIUM 3.3 mmol/L (3.5-5.1)
--- NOTE | 2021-11-05 07:30 | NUR ---
HUMAN SERVICE TECHNICIAN AM NOTE RECEIVED PATIENT IN BED. EYES OPEN, OBTUNDED. WITH TRACH SH 6 TO MECHANICAL VENT. SETTINGS: AC 14 TV 400 FIO2 40 PEEP 5. WELL TOLERATED, BREATHING EVEN AND UNLABORED. NO DISTRESS, SR HR 89 ON MONITOR. NO SIGNS OF DISCOMFORT. THOMAS PICC LINE FLUSHES WELL, CDI DRESSINGS, SITE CLEAR. WITH JEVITY 1.2 AT 60 ML/HR , CHECKED FOR PLACEMENT, 5 ML REISDUAL. WITH FREE WATER FLUSH 125CC Q 4HRS, DOMINGO CATH TO GRAVITY, ADEQUATE AMOUNT OF URINE OUTPUT. HOB ELEVATED FOR ASPIRATION PRECAUTION ,TURNED AND REPOSITION Q 2 HRS AND PRN SUCTION SECRETION Q 2HRS AND PRN , SEE NURSING FLOWSHEET FOR SKIN ISSUES. SAFETY MEASURES IN PLACE. BED LOW CHARLENE. HOB UP 30 DEG. SR UP X 3. CALL LIGHT WITHIN REACH. WILL CONTINUE TO MONITOR .
--- NOTE | 2021-11-05 07:53 | NUR ---
vent changes below for weaning trial per dr. bradshaw: simv 4 ps 15 peep +5 fio2 40% pt. is awake but unable to follow commands with following vital signs: spo2 100%, hr 84 bpm, RR 15 bpm. Addendum: 11/05/21 at 0757 by PAUL THOMAS RT Amended: Links added.
[2021-11-05] MEDS: DIVALPROEX SODIUM 125 MG CAP.SPRINK GT SCH ×3 (09:14→17:56)
[2021-11-05] MEDS: ASPIRIN 81 MG TAB.CHEW GT SCH (09:14)
[2021-11-05] MEDS: RIVAROXABAN 15 MG TABLET GT SCH ×2 (09:15→17:56)
[2021-11-05] MEDS: ACIDOPHILUS/BULGARICUS 1 EACH TAB.CHEW GT SCH (09:15)
[2021-11-05] MEDS: METHIMAZOLE (5MG) 5 MG TABLET GT SCH ×2 (09:15→17:56)
[2021-11-05] MEDS: DAKINS QUARTER STRENGTH (0.125%) 480 ML BOTTLE TOP SCH (09:16)
[2021-11-05] MEDS: HYDROGEL DRESSING 90 GM TUBE TP SCH (09:16)
[2021-11-05] MEDS: Z GUARD REMEDY 4 OZ OINT TP SCH (09:17)
[2021-11-05] MEDS: SIMETHICONE 80 MG TAB.CHEW GT SCH ×2 (09:17→21:07)
--- NOTE | 2021-11-05 09:30 | NUR ---
RN NOTES DUE MEDS GIVENQ
[2021-11-05 09:41] LABS: ABG BASE EXCESS 6.7 mmol/L; ABG PCO2 35.6 mmHg (35.0-45.0); ABG PH 7.537 (7.350-7.450); ABG PO2 142.9 mmHg (75.0-100.0); COHb 0.3 % (0.5-1.5); MetHb 0.5 % (0.0-1.5); O2Hb 97.8 % (94.0-97.0); PEEP,BG 5 cm H2O; SITE, ABG Right Radial; VT, ABG 400 mL
--- NOTE | 2021-11-05 10:00 | NUR ---
RN NOTES PATIENT VENT SETTINGS CHANGED AT 0800 SIMV PSV 15, ABG DONE, RELAYED TO DR. ALTMAN, PATIENT NOW AT PSV OF 10.
--- NOTE | 2021-11-05 10:05 | NUR ---
vent changes below per dr. jewell: PS 10 Addendum: 11/05/21 at 1006 by PAUL THOMAS RT Amended: Links added.
--- NOTE | 2021-11-05 12:22 | NUR ---
fio2 decreased from 40 to 30% due to 142 pao2 and 100% spo2 Addendum: 11/05/21 at 1222 by PAUL THOMAS RT Amended: Links added.
[2021-11-05] MEDS ORDERED: POTASSIUM CHLORIDE 20 MEQ POWDER PACKET NG SCH (14:00)
[2021-11-05] MEDS: JEVITY 1.2 CAL 1,000 ML BOTTLE GT SCH (17:55)
[2021-11-05] MEDS: TAMSULOSIN 0.4 MG CAP.SR.24H GT SCH (17:56)
--- NOTE | 2021-11-05 19:11 | NUR ---
COUNTY DIRECTOR PM NOTE THR PATIENTIS IN BED WITH EYES AND MOUTH OPEN, OBTUNDED. WITH TRACH SH 6 TO MECHANICAL VENT. SETTINGS: SIMV WITH PRESSURE SUPORT OF 10 FIO2 30 PEEP 5. WELL TOLERATED. BREATHING EVEN AND UNLABORED. NO DISTRESS, SR HR 90s ON MONITOR. THOMAS PICC LINE FLUSHES WELL, CDI DRESSINGS, SITE CLEAR AND INTACT. WITH JEVITY 1.2 AT 60 ML/HR , CHECKED FOR PLACEMENT, 5 ML REISDUAL. WITH FREE WATER FLUSH 125CC Q 4HRS, DOMINGO CATH TO GRAVITY, 1100 ML AMOUNT OF URINE OUTPUT. ASPIRATION PRECAUTIONS OBSERVED WITH HEAD ELEVATED AT ALL TIMES ,TURNED AND REPOSITIONED Q 2 HRS AND PRN SUCTION SECRETION Q 2HRS AND PRN , SAFETY MEASURES IN PLACE. BED LOW LOCKED. HOB UP 30 DEG. SR UP X 3. CALL LIGHT WITHIN REACH. ALL NEEDS MET AT THIS TIME. NO OTHER SIGNIFICANT CHANGE IN CONDITION. PM CARE DONE EARLIER. CALL IGHT WITHIN REACH. WILL ENDORSE TO NEXT SHIFT FOF ILIANA.
--- NOTE | 2021-11-05 19:21 | NUR ---
ESTHETICIAN PERMANENT MAKEUP ARTIST OPENING NOTE PT IN BED WITH EYES OPEN, OBTUNDED. WITH TRACH SH 6 TO MECHANICAL VENT. SETTINGS: SIMV WITH PRESSURE SUPPORT OF 10 FIO2 30 PEEP 5. WELL TOLERATED. BREATHING EVEN AND UNLABORED. NO DISTRESS, SR HR 90s ON MONITOR. THOMAS PICC LINE FLUSHES WELL, CDI DRESSINGS, SITE CLEAR AND INTACT. WITH JEVITY 1.2 AT 60 ML/HR , CHECKED FOR PLACEMENT, 5 ML RESIDUAL. WITH FREE WATER FLUSH 125CC Q 4HRS, DOMINGO CATH TO GRAVITY,. ASPIRATION PRECAUTIONS OBSERVED WITH HEAD ELEVATED AT ALL TIMES SAFETY MEASURES IN PLACE. BED LOW LOCKED. HOB UP 30 DEG. SR UP X 3. CALL LIGHT WITHIN REACH. ALL NEEDS MET AT THIS TIME. CALL LIGHT WITHIN REACH. WILL CONTINUE TO MONITOR.
[2021-11-05] MEDS: QUETIAPINE FUMARATE 25 MG TABLET PO SCH (21:08)
[2021-11-06] VITALS: BP 118/72
--- NOTE | 2021-11-06 04:10 | NUR ---
RT PT DID NOT TOLERATE BEING REPOSITIONED, PLACED PT ON PREV ORDERED SETTINGS OF AC RR 14 VT 400 FIO2 30% PEEP+5. PT TOLERATING AC MODE WELL. RN WAS BEDSIDE AND IS AWARE.
[2021-11-06 04:14] VITALS: BP 130/82
[2021-11-06] MEDS: HYDROCORTISONE SOD SUCCINATE 100 MG/2 ML VIAL IV SCH ×3 (04:46→21:30)
--- NOTE | 2021-11-06 04:47 | NUR ---
DENTAL SECRETARY NOTES PT PLACED BACK ON PREVIOUS VENT SETTING HE WAS NOT TOLERATING REPOSITIONING HAVING A VERY HARD TIME BREATHING AND WAS NOT COMING BACK TO BASELINE. AC 14, TV 400, FIO2 30% PEEP 5. CHARGE NURSE MADE AWARE. WILL ENDORSE TO DAY SHIFT NURSE.
[2021-11-06] MEDS: BLOOD SUGAR DIAGNOSTIC 1 EACH STRIP IN SCH ×3 (05:22→17:22)
[2021-11-06] MEDS: INSULIN REGULAR, HUMAN 100 UNIT/ML 3 ML VIAL SQ PRN (05:23)
--- NOTE | 2021-11-06 06:34 | NUR ---
ARTIST AGENT CLOSING NOTE PT IN BED WITH EYES CLOSED, OBTUNDED. WITH TRACH SH 6 TO MECHANICAL VENT. SETTINGS: AC 14 TV 400 FIO2 30 PEEP 5. WELL TOLERATED.BREATHING EVEN AND UNLABORED. NO DISTRESS, SR HR 80s ON MONITOR. THOMAS PICC LINE FLUSHES WELL, PICC LINE DRESSING CHANGED C/D/I WITH JEVITY 1.2 AT 60 ML/HR RUINING TOLERATED WELL.WITH FREE WATER FLUSH 125CC Q 4HRS, DOMINGO CATH TO GRAVITY WITH 1000CC OUTPUT OG CLEAR YELLOW URINE DURING THE SHIFT. ASPIRATION PRECAUTIONS OBSERVED WITH HEAD ELEVATED AT ALL TIMES SAFETY MEASURES IN PLACE. BED LOW LOCKED. HOB UP 30 DEG. SR UP X 3. CALL LIGHT WITHIN REACH. ALL NEEDS MET AT THIS TIME. CALL LIGHT WITHIN REACH. WILL ENDORSE CARE TO DAY SHIFT NURSE FOR ILIANA.
[2021-11-06] MEDS: SIMETHICONE 80 MG TAB.CHEW GT SCH ×2 (09:02→21:30)
[2021-11-06] MEDS: ASPIRIN 81 MG TAB.CHEW GT SCH (09:02)
[2021-11-06] MEDS: METHIMAZOLE (5MG) 5 MG TABLET GT SCH ×2 (09:02→16:40)
[2021-11-06] MEDS: ACIDOPHILUS/BULGARICUS 1 EACH TAB.CHEW GT SCH (09:02)
[2021-11-06] MEDS: DIVALPROEX SODIUM 125 MG CAP.SPRINK GT SCH ×3 (09:03→16:39)
[2021-11-06] MEDS: RIVAROXABAN 15 MG TABLET GT SCH ×2 (09:05→16:40)
[2021-11-06] MEDS: DAKINS QUARTER STRENGTH (0.125%) 480 ML BOTTLE TOP SCH (09:05)
[2021-11-06] MEDS: HYDROGEL DRESSING 90 GM TUBE TP SCH (09:06)
[2021-11-06] MEDS: Z GUARD REMEDY 4 OZ OINT TP SCH (09:06)
[2021-11-06 09:14] VITALS: BP 141/88
--- NOTE | 2021-11-06 09:30 | NUR ---
RN NOTES DUE MEDS GIVEN
--- NOTE | 2021-11-06 11:20 | NUR ---
RN NOTES DR. MCDONALD AT BEDSIDE TALKING TO PATIENT. PER DR. MCDONALD PLAN IS TO TRANSFER HER TO ANOTHER HOSPITAL FOR HIGHER LEVEL OF CARE. TO DO A REPEAT ERCP. Addendum: 11/06/21 at 1520 by ANTIONE MELGAR RN CORRECTION: DISREGARD THIS DOCUMENTATION INTENDED FOR ANOTHER PATIENT.
[2021-11-06] MEDS: JEVITY 1.2 CAL 1,000 ML BOTTLE GT SCH (12:35)
[2021-11-06 13:07] VITALS: BP 137/72
--- NOTE | 2021-11-06 15:29 | NUR ---
MANAGER E LEARNING AM NOTE PATIENT IS IN BED WITH EYES AND MOUTH OPEN, NON VERBAL ,WITH TRACH SH 6 TO MECHANICAL VENT. SETTINGS: AC 14 TV 400 FIO2 30 PEEP 5. WELL TOLERATED.BREATHING EVEN AND UNLABORED. NO DISTRESS, SR HR 95 ON MONITOR. PATIENT HAS PICC LINE THOMAS , PICC LINE SITE ASSESSED SKIN INTACT NO DISCHARGE OR REDNESS NOTED .ALL THREE LUMENS ARE OPEN AND FLUSHED WITH 5 CC OF NS. G TUBE IN PLACE AND RUINING WITH WITH JEVITY 1.2 AT 60 ML/HR . WILL FLUSH GTUBE WITH 125 CC OF WATER EVERY 4 HR PER MD ORDER , CHECKED FOR PLACEMENT. 5 ML RESIDUAL. DOMINGO CATH TO GRAVITY IN PLACE WITH YELLOW URINE OUTPUT. WILL REPOSITION PATIENT EVERY 2 HR TO PREVENT IMPAIRMENTS OF THE SKIN INTEGRITY.ASPIRATION PRECAUTIONS.SAFETY MEASURES IN PLACE. BED LOW LOCKED. HOB UP 30 DEG. SR UP X 3. CALL LIGHT WITHIN REACH. CALL LIGHT WITHIN REACH. WILL CONTINUE TO MONITOR.
[2021-11-06 16:00] VITALS: BP 135/88
[2021-11-06] MEDS: TAMSULOSIN 0.4 MG CAP.SR.24H GT SCH (18:32)
--- NOTE | 2021-11-06 18:58 | NUR ---
AIR TURNING MACHINE FEEDER CLOSING NOTE THE PATIENT IS IN BED WITH EYES AND MOUTH OPEN, OBTUNDED. WITH TRACH SH 6 TO MECHANICAL VENT. SETTINGS: SIMV WITH PRESSURE SUPORT OF 10 FIO2 30 PEEP 5. O2 SAT 100 % WELL TOLERATED. BREATHING EVEN AND UNLABORED. NO DISTRESS, SR HR 90s ON MONITOR. THOMAS PICC LINE FLUSHES WELL, CDI DRESSINGS, SITE CLEAR AND INTACT. WITH JEVITY 1.2 AT 60 ML/HR , CHECKED FOR PLACEMENT, 5 ML RESIDUAL. WITH FREE WATER FLUSH 125CC Q 4HRS, DOMINGO CATH TO GRAVITY, 1100 ML AMOUNT OF URINE OUTPUT. ASPIRATION PRECAUTIONS OBSERVED WITH HEAD ELEVATED AT ALL TIMES ,TURNED AND REPOSITIONED Q 2 HRS AND PRN SUCTION SECRETION Q 2HRS AND PRN , SAFETY MEASURES IN PLACE. BED LOW LOCKED. HOB UP 30 DEG. SR UP X 3. CALL LIGHT WITHIN REACH. ALL NEEDS MET AT THIS TIME. NO OTHER SIGNIFICANT CHANGE IN CONDITION. PM CARE DONE EARLIER. CALL LIGHT WITHIN REACH. WILL ENDORSE TO NEXT SHIFT FOF ILIANA.
--- NOTE | 2021-11-06 19:35 | NUR ---
HADOOP ARCHITECT OPENING NOTES RECEIVED PATIENT IN BED; AWAKE, OPENS EYES, OBTUNDED. WITH TRACH SH 6 ATTACHED TO [facility] VENT WITH SETTINGS FOLLOWS: AC 14, TV 400, FIO2 30 PEEP 5; TOLERATING WELL. BREATHING EVENLY AND NONLABORED. ON TELEMETRY MONITORING WITH READING OF SR HR 87BPM. WITH RIGHT UPPER ARM PICC LINE; CDI AND FLUSHES WELL. WITH G-TUBE FEEDING OF JEVITY 1.2 REGULATED AT 60 ML/HR; PLACEMENT CHECKED, WITH 125CC WATER FLUSH Q4HRS. WITH DOMINGO CATHETER TO GRAVITY DRAINING TO YELLOW URINE OUTPUT. KEPT HEAD OF BED ELEVATED AT 30 DEGREES. TURNING AND REPOSITIONING DONE PER PROTOCOL. SAFETY MEASURES IMPLEMENTED: CALL LIGHT WITHIN REACH, SIDE RAILS UP X3, BED IN LOWEST LOCKED POSITION. WILL CONTINUE TO MONITOR
[2021-11-06 20:00] VITALS: BP 138/89
[2021-11-06] MEDS: QUETIAPINE FUMARATE 25 MG TABLET PO SCH (21:34)
[2021-11-07] VITALS: BP 136/89
[2021-11-07] MEDS: BLOOD SUGAR DIAGNOSTIC 1 EACH STRIP IN SCH ×4 (00:18→18:24)
--- NOTE | 2021-11-07 01:44 | NUR ---
RT PT RECVD ON ORDERED AC VENT SETTINGS WITH A SHILEY 6 COVIDEN CUFFED TRACH. TRACH IS PATENT AND SECURED. SUCTION DONE PRN. VENT IS PLUGGED INTO RED OUTLET WITH ALARMS ON AUDIBLE. AMBU BAG AND SPARE TRACH AT BEDSIDE. NO SOB OR RESPIRATORY DISTRESS NOTED AT THIS TIME.
[2021-11-07 04:00] VITALS: BP 137/88
[2021-11-07] MEDS: HYDROCORTISONE SOD SUCCINATE 100 MG/2 ML VIAL IV SCH ×3 (05:17→22:18)
--- NOTE | 2021-11-07 07:05 | NUR ---
maintenance job titles Closing Notes Patient is in bed; awake, obtunded. VS stable[facility]. No sob noted. Due meds given. Safety measures in place. Endorsed to Nurse Rivas for clarissa.
--- NOTE | 2021-11-07 07:38 | NUR ---
HIGH SCHOOL FOOTBALL COACH OPENING NOTES RECEIVED PATIENT IN BED; AWAKE, OPENS EYES, OBTUNDED. WITH TRACH SH 6 ATTACHED TO [facility] VENT WITH SETTINGS PRESCRIBED; TOLERATING WELL. BREATHING EVENLY AND NONLABORED. SINUS RHYTHM ON EDGE ROLLER. WITH RIGHT UPPER ARM PICC LINE; PATENT AND FLUSHES WELL. WITH G-TUBE FEEDING OF JEVITY 1.2 REGULATED AT 60 ML/HR; PLACEMENT CHECKED, WITH 125CC WATER FLUSH Q4HRS. WITH DOMINGO CATHETER TO GRAVITY DRAINING TO YELLOW URINE OUTPUT. KEPT HEAD OF BED ELEVATED AT 30 DEGREES. SAFETY MEASURES IMPLEMENTED: CALL LIGHT WITHIN REACH, SIDE RAILS UP X3, BED IN LOWEST LOCKED POSITION. WILL CONTINUE TO MONITOR
[2021-11-07 08:00] VITALS: BP 133/91
[2021-11-07] MEDS: SIMETHICONE 80 MG TAB.CHEW GT SCH ×2 (08:17→22:18)
[2021-11-07] MEDS: ASPIRIN 81 MG TAB.CHEW GT SCH (08:17)
[2021-11-07] MEDS: METHIMAZOLE (5MG) 5 MG TABLET GT SCH ×2 (08:17→17:06)
[2021-11-07] MEDS: DIVALPROEX SODIUM 125 MG CAP.SPRINK GT SCH ×3 (08:18→17:06)
[2021-11-07] MEDS: ACIDOPHILUS/BULGARICUS 1 EACH TAB.CHEW GT SCH (08:18)
[2021-11-07] MEDS: RIVAROXABAN 15 MG TABLET GT SCH ×2 (08:21→17:08)
[2021-11-07] MEDS: HYDROGEL DRESSING 90 GM TUBE TP SCH (09:22)
[2021-11-07] MEDS: DAKINS QUARTER STRENGTH (0.125%) 480 ML BOTTLE TOP SCH (09:22)
[2021-11-07] MEDS: Z GUARD REMEDY 4 OZ OINT TP SCH (09:23)
[2021-11-07 12:00] VITALS: BP 139/74
[2021-11-07 16:00] VITALS: BP 145/94
[2021-11-07] MEDS: TAMSULOSIN 0.4 MG CAP.SR.24H GT SCH (17:08)
[2021-11-07] MEDS ORDERED: SODI473S8 TOP (17:48)
[2021-11-07] MEDS ORDERED: HYDR20TA PO (17:48)
[2021-11-07] MEDS ORDERED: LACT-209 GT (17:48)
[2021-11-07] MEDS ORDERED: AMIO200T5 PO (17:48)
[2021-11-07] MEDS ORDERED: HYDR10TA GT (17:48)
[2021-11-07] MEDS ORDERED: RIVA15TA GT (17:48)
--- NOTE | 2021-11-07 19:27 | NUR ---
RN CLOSING NOTES: THE PATIENT IS IN BED WITH EYES AND MOUTH OPEN, OBTUNDED. WITH TRACH SH 6 TO MECHANICAL VENT. PRESCRIBED WELL TOLERATED. BREATHING EVEN AND UNLABORED. NO DISTRESS, SR ON TELE MONITOR. THOMAS PICC LINE FLUSHES WELL,GTF WITH JEVITY 1.2 AT 60 ML/HR , CHECKED FOR PLACEMENT, 0 ML RESIDUAL. WITH FREE WATER FLUSH 125CC Q 4HRS, DOMINGO CATH TO GRAVITY, 2000 ML AMOUNT OF URINE OUTPUT. ASPIRATION PRECAUTIONS OBSERVED WITH HEAD ELEVATED AT ALL TIMES ,TURNED AND REPOSITIONED Q 2 HRS AND PRN SUCTION SECRETION Q 2HRS AND PRN , SAFETY MEASURES IN PLACE. BED LOW LOCKED. HOB UP 30 DEG. SR UP X 3. CALL LIGHT WITHIN REACH. ALL NEEDS MET AT THIS TIME. NO OTHER SIGNIFICANT CHANGE IN CONDITION. PM CARE DONE EARLIER. CALL LIGHT WITHIN REACH. WILL ENDORSE TO NEXT SHIFT FOR ILIANA
[2021-11-07 20:00] VITALS: BP 120/65
--- NOTE | 2021-11-07 21:13 | NUR ---
check inspector Opening Note Pt received in bed, obtunded, non-verbal with eyes open. Pt noted to have trach Shiley #6, AC 14, FiO2 30%, and PEEP 5; pt shows no s/s of resp distress, no SOB, non-labored breathing. Pt attached to external monitor and noted to be ST with HR 104. Dior intact and patent draining clear and yellow urine. GT dressing intact and patent with Jevity running at 60 ml/hr; noted to have very minimal residual. THOMAS PICC intact and patent; no fluids or abx running at the moment. Bed in lowest position, call light within reach, side rails up x3. Will continue to monitor throughout the night.
[2021-11-07] MEDS: QUETIAPINE FUMARATE 25 MG TABLET PO SCH (22:18)
[2021-11-07] MEDS: ACETAMINOPHEN 650 MG/20.3 ML UDC NG PRN (22:22)
[2021-11-07] MEDS ORDERED: LIDOCAINE 1%-EPI 1:100,000 20 ML VIAL TP ONE (22:30)
[2021-11-07] MEDS ORDERED: SILVER NITRATE APPLICATOR 1 EA BOX TP SCH (22:30)
--- NOTE | 2021-11-07 22:43 | NUR ---
RN Note Pt with temperature of 101.2. Pt given Tylenol 650 mg/20.3 ml UDC. Will reassess pt's temp for effectiveness.
[2021-11-08] VITALS: BP 102/63
[2021-11-08] MEDS: JEVITY 1.2 CAL 1,000 ML BOTTLE GT SCH (00:04)
[2021-11-08] MEDS: BLOOD SUGAR DIAGNOSTIC 1 EACH STRIP IN SCH ×4 (00:18→18:00)
[2021-11-08] MEDS: INSULIN REGULAR, HUMAN 100 UNIT/ML 3 ML VIAL SQ PRN ×2 (00:23→11:54)
[2021-11-08 04:00] VITALS: BP 127/68
[2021-11-08] MEDS: HYDROCORTISONE SOD SUCCINATE 100 MG/2 ML VIAL IV SCH ×2 (05:58→12:21)
--- NOTE | 2021-11-08 06:35 | NUR ---
synthetic chemist Closing Note Pt in bed, obtunded, non-verbal; slept intermittently. Pt continues to have trach Shiley #6, AC 14, FiO2 30%, and PEEP 5; pt tolerating vent settings well; no s/s of resp distress, no SOB, non-labored breathing. Pt attached to external monitor and SR with HR 79. Dior intact and patent draining clear and yellow urine. GT dressing intact and patent with Jevity running at 60 ml/hr. THOMAS PICC intact and patent; NS TKO at 5 ml/hr. Bed in lowest position, call light within reach, side rails up x3. Will continue to monitor throughout the night. Addendum: 11/08/21 at 0642 by PRINCESS ELVIRA TILLMAN [facility] Addendum: 11/08/21 at 0649 by PRINCESS ELVIRA TILLMAN GT flushed with free water 125 ml q4h
--- NOTE | 2021-11-08 07:00 | NUR ---
RN NOTE RECEIVED PATIENT NONVERBAL OBTUNDED,OPEN EYES, ON MECHANICAL VENT SETTING ON SHILEY 6 AC 14 TV 4OO FIO2:400 PEEP 5,IV SITE IS ON RIGHT UPPER ARM PICC LINE INTACT PATENT,ON G-TUBE FEEDING JEVITY 1.2 60CC/HR CHECKED PLACEMENT IN PLACE NO RESIDUAL NOTED,DOMINGO CATHETER IN PLACE URINE DRAINING BY GRAVITY,SAFETY MEASURE IMPLEMENT,HEAD OF THE BED ELEVATED,BED IN LOW POSITION AND LOCKED, CONTINUE TO MONITOR.
--- NOTE | 2021-11-08 07:30 | NUR ---
RN NOTE CALLED [facility] TO GIVE REPORT PATIENT DISCHARGING TO THAT HOSPITAL SPOKE WITH MENDEZ SHE SAID NOT INQUIRY FOR THAT PATIENT CHARGE NURSE AWARE
[2021-11-08 08:00] VITALS: BP 123/71
[2021-11-08] MEDS: ASPIRIN 81 MG TAB.CHEW GT SCH (08:21)
[2021-11-08] MEDS: ACIDOPHILUS/BULGARICUS 1 EACH TAB.CHEW GT SCH (08:21)
[2021-11-08] MEDS: ACETAMINOPHEN 650 MG/20.3 ML UDC NG PRN (08:22)
[2021-11-08] MEDS: METHIMAZOLE (5MG) 5 MG TABLET GT SCH ×2 (08:22→17:13)
[2021-11-08] MEDS: SIMETHICONE 80 MG TAB.CHEW GT SCH (08:22)
[2021-11-08] MEDS: DIVALPROEX SODIUM 125 MG CAP.SPRINK GT SCH ×3 (08:22→17:12)
[2021-11-08] MEDS: RIVAROXABAN 15 MG TABLET GT SCH ×2 (08:24→17:13)
[2021-11-08] MEDS: DAKINS QUARTER STRENGTH (0.125%) 480 ML BOTTLE TOP SCH (08:25)
[2021-11-08] MEDS: HYDROGEL DRESSING 90 GM TUBE TP SCH (08:25)
[2021-11-08] MEDS: Z GUARD REMEDY 4 OZ OINT TP SCH (08:26)
[2021-11-08] MEDS ORDERED: SULFAMETH/TRIMETH 800/160 MG 1 UDTAB TABLET PO SCH (11:30)
[2021-11-08 12:00] VITALS: BP 130/70
[2021-11-08 16:00] VITALS: BP 115/85
[2021-11-08] MEDS: TAMSULOSIN 0.4 MG CAP.SR.24H GT SCH (17:13)
--- NOTE | 2021-11-08 18:44 | NUR ---
RN NOTE PATIENT REMAINS ON OBTUNDED,CONTRACTED ON MECHANICAL VENT REPORT GIVEN TO [facility],KEPT CLEAN AND DRY ALL DUE MEDS GIVEN MD ORDERED,HEAD OF THE BED ELEVATED,WOUND TREATMENT DONE,TOOK PICTURES OF WOUND,PUT IN CHART,WAITING FOR AMBULANCE,ENDORSE NEXT COMING SHIFT FOR CONTINUATION OF CARE.
--- NOTE | 2021-11-08 19:24 | NUR ---
LOGISTICS SPECIALIST NOTE PATIENT DISCHARGE TO [facility] IN STABLE CONDITION,WITH BELONGINGS( ONE WATCH) REMOVED DOMINGO CATHETER MD ORDERED,PATIENT IS OBTUNDED CONTRACTED,NON VERBAL,ON MECHANICAL VENT,PT LEFT HOSPITAL BY [facility]BULANCE IN STABLE CONDITION.
== END 2021-11-08 19:33 | DRG 5 ==
LOC: ER 18:26 → ICU 22:50 → TELE 10-30 19:25 → TELE1 10-31 19:29 → TELE-TD 10-31 20:27 → TELE1 11-01 10:11
PROVIDERS: ADMIT Nurse Practitioner Acute Care; ATTEND Nurse Practitioner Acute Care
PROC: 0BH18EZ Insertion of Endotracheal Airway into Trachea, Via Natural or Artificial Opening Endoscopic (ICD-10-PCS; 2021-10-16)
PROC: 5A1955Z Respiratory Ventilation, Greater than 96 Consecutive Hours (ICD-10-PCS; 2021-10-16)
PROC: 02HV33Z Insertion of Infusion Device into Superior Vena Cava, Percutaneous Approach (ICD-10-PCS; 2021-10-17)
PROC: B548ZZA Ultrasonography of Superior Vena Cava, Guidance (ICD-10-PCS; 2021-10-17)
PROC: 30233N1 Transfusion of Nonautologous Red Blood Cells into Peripheral Vein, Percutaneous Approach (ICD-10-PCS; principal; 2021-10-22)
PROC: 0B113F4 Bypass Trachea to Cutaneous with Tracheostomy Device, Percutaneous Approach (ICD-10-PCS; 2021-10-27)
PROC: 0DH63UZ Insertion of Feeding Device into Stomach, Percutaneous Approach (ICD-10-PCS; 2021-10-27)
PROC: 0BJ08ZZ Inspection of Tracheobronchial Tree, Via Natural or Artificial Opening Endoscopic (ICD-10-PCS; 2021-10-27)
DX: A41.9 Sepsis, unspecified organism (principal); I26.99 Other pulmonary embolism without acute cor pulmonale; R65.21 Severe sepsis with septic shock; N17.0 Acute kidney failure with tubular necrosis; J69.0 Pneumonitis due to inhalation of food and vomit; G92.8 Other toxic encephalopathy; I21.A1 Myocardial infarction type 2; J15.6 Pneumonia due to other Gram-negative bacteria; E43 Unspecified severe protein-calorie malnutrition; E86.0 Dehydration; J96.01 Acute respiratory failure with hypoxia; Z86.73 Personal history of transient ischemic attack (TIA), and cerebral infarction without residual deficits; N40.0 Benign prostatic hyperplasia without lower urinary tract symptoms; Z79.890 Hormone replacement therapy; Z91.011 Allergy to milk products; Z91.018 Allergy to other foods; Z79.82 Long term (current) use of aspirin; Z79.899 Other long term (current) drug therapy; I10 Essential (primary) hypertension; E86.1 Hypovolemia; E87.0 Hyperosmolality and hypernatremia; I82.432 Acute embolism and thrombosis of left popliteal vein; N28.89 Other specified disorders of kidney and ureter; J98.11 Atelectasis; J90 Pleural effusion, not elsewhere classified; M20.41 Other hammer toe(s) (acquired), right foot; M20.42 Other hammer toe(s) (acquired), left foot; L89.106 Pressure-induced deep tissue damage of unspecified part of back; L89.156 Pressure-induced deep tissue damage of sacral region; L89.896 Pressure-induced deep tissue damage of other site; Y95 Nosocomial condition; S90.821A Blister (nonthermal), right foot, initial encounter; X58.XXXA Exposure to other specified factors, initial encounter; Y92.9 Unspecified place or not applicable; F20.9 Schizophrenia, unspecified; F03.90 Unspecified dementia, unspecified severity, without behavioral disturbance, psychotic disturbance, mood disturbance, and anxiety; E88.09 Other disorders of plasma-protein metabolism, not elsewhere classified; E87.6 Hypokalemia; E87.2 Acidosis; E83.51 Hypocalcemia; E03.9 Hypothyroidism, unspecified; D64.9 Anemia, unspecified; I71.2 Thoracic aortic aneurysm, without rupture; G93.89 Other specified disorders of brain; E87.8 Other disorders of electrolyte and fluid balance, not elsewhere classified; M62.562 Muscle wasting and atrophy, not elsewhere classified, left lower leg; M62.561 Muscle wasting and atrophy, not elsewhere classified, right lower leg; I82.811 Embolism and thrombosis of superficial veins of right lower extremity
CPT/HCPCS: 31720; 36415; 36600; 43246; 70450-TC; 71045-TC; 80048-TC; 80053-TC; 80076-TC; 80202-TC; 81001; 82272-TC; 82803-TC; 82962-TC; 83605-TC; 83735-TC; 84100-TC; 84132-TC; 84478-TC; 84484-TC; 85025-TC; 85027-TC; 85378-TC; 85610-TC; 85730-TC; 86803; 86850-TC; 87040-TC; 87070-TC; 87081-TC; 87086-TC; 87186-TC; 87806; 93970-TC; 94003-TC; 94640-TC; 94760-TC; 94762-TC; 94799-TC; 99082-TC; A4216; A6248; A6253; A6403; A7526; A9563; C9803; G0378; J0282; J0692; J1644; J1720; J1815; J2185; J2370; J2543; J2704; J3010; J3370; J3480; J3490; J7030; J7040; J7050; J7060; J7070; J7120; P9016; P9047; Q9967